=== PATIENT | male | born 1940 | race Caucasian/White ===

== ENCOUNTER 2017-09-01 22:57 | Emergency (ER) | payer MEDICARE, OTHER, MEDICAID ==
[~2017-09-01] VITALS: Ht 177.8 cm; Wt 101.0 kg
[~2017-09-01 22:57] MED LIST: ASPI-611 PO; CARV3.12 PO; CARV3.122 PO; CHOL10002 PO; FISH1CAP15 PO; FURO40TA4 PO; IBUP-1986 PO; MULT-1141 PO; NITR0.4T48 SL; PRAV20TA4 PO; VALS40TA2 PO
[2017-09-01] MEDS ORDERED: POTA10TA19 PO (23:10)
[2017-09-02] MEDS ORDERED: BENZ-16 PO (00:22)
[2017-09-02] MEDS: benzonatate 100mg capsule PO ONE (00:30)
[2017-09-02 00:36] VITALS: BP 145/73
== END 2017-09-02 00:42 | disposition home or self-care (01) ==
LOC: ER 22:58
DX: J20.9 Acute bronchitis, unspecified (principal); I49.9 Cardiac arrhythmia, unspecified; I11.0 Hypertensive heart disease with heart failure; I50.9 Heart failure, unspecified; I25.2 Old myocardial infarction; K21.9 Gastro-esophageal reflux disease without esophagitis; Z88.8 Allergy status to other drugs, medicaments and biological substances; Z79.82 Long term (current) use of aspirin; Z79.899 Other long term (current) drug therapy
CPT/HCPCS: 71046; 99284

== ENCOUNTER 2017-09-07 09:32 | Emergency (ER) | payer OTHER, MEDICARE, MEDICAID ==
[~2017-09-07] VITALS: Ht 177.8 cm; Wt 91.0 kg
[~2017-09-07 09:32] MED LIST changes: -ASPI-611 PO; +BENZ-16 PO; -CARV3.12 PO; +POTA10TA19 PO
[2017-09-07 10:03] LABS: BASOPHILS % (AUTO) 0.3 % (0-1); EOSINOPHILS # (AUTO) 0.2 X10'3 (0-0.9); EOSINOPHILS % (AUTO) 1.9 % (0-6); HEMATOCRIT 35.3 % (42.0-52.0); HEMOGLOBIN 12.3 g/dl (14.0-17.9); LYMPHOCYTES # (AUTO) 1.5 X10'3 (1.1-4.8); LYMPHOCYTES % (AUTO) 15.2 % (21-51); MEAN CORPUSCULAR HEMOGLOBIN 30.5 PG (27.0-31.0); MEAN CORPUSCULAR HGB CONC 34.7 % (33.0-36.5); MEAN CORPUSCULAR VOLUME 87.8 FL (78-98); MEAN PLATELET VOLUME 6.8 FL (7.4-10.4); MONOCYTES % (AUTO) 10.7 % (2-12); NEUTROPHILS % (AUTO) 71.9 % (42-75); PLATELET COUNT 210 X10'3 (140-440); RED BLOOD COUNT 4.02 X10'6 (4.70-6.10); RED CELL DISTRIBUTION WIDTH 13.8 % (11.5-14.5); WHITE BLOOD COUNT 9.7 X10'3 (4.5-11.0)
[2017-09-07 10:14] LABS: PARTIAL THROMBOPLASTIN TIME 30 SECONDS (22-32)
[2017-09-07 10:19] LABS: ALANINE AMINOTRANSFERASE 54 U/L (12-78); ALBUMIN 2.8 G/DL (3.4-5.0); ALBUMIN/GLOBULIN RATIO 0.6 (1.1-1.5); ALKALINE PHOSPHATASE 49 IU/L (46-116); ANION GAP 8 (8-16); ASPARTATE AMINO TRANSFERASE 50 U/L (10-37); BILIRUBIN,TOTAL 0.5 MG/DL (0.1-1.0); BLOOD UREA NITROGEN 11 MG/DL (7-18); BUN/CREATININE RATIO 10.5 (5.4-32.0); CALCIUM 8.5 MG/DL (8.5-10.1); CHLORIDE 101 MMOL/L (99-107); CREATININE 1.05 MG/DL (0.60-1.10); GLUCOSE 93 MG/DL (70-104); POTASSIUM 3.9 MMOL/L (3.5-5.1); SODIUM 137 MMOL/L (135-145); TOTAL CARBON DIOXIDE 28.3 MMOL/L (24-32); TOTAL PROTEIN 7.5 G/DL (6.4-8.2); eGFR 69 ML/MIN
[2017-09-07] MEDS: ipratropium/albuterol 3ml nebule NEB ONE (10:50)
[2017-09-07] MEDS ORDERED: AMOX-580 PO (10:56)
[2017-09-07] MEDS ORDERED: AZIT250T PO (10:56)
[2017-09-07] MEDS ORDERED: FLUT1BLS3 INH (10:57)
[2017-09-07] MEDS: CefTRIAXone 1000mg IM Kit (w/lidocaine diluent) IM ONE (11:23)
[2017-09-07] MEDS: methylPREDNISolone sod succ 125mg/2ml vial IM ONE (11:23)
[2017-09-07 12:24] VITALS: BP 110/70
== END 2017-09-07 12:25 | disposition home or self-care (01) ==
LOC: ER 09:32
DX: J18.1 Lobar pneumonia, unspecified organism (principal); I11.0 Hypertensive heart disease with heart failure; I50.9 Heart failure, unspecified; I25.2 Old myocardial infarction; K21.9 Gastro-esophageal reflux disease without esophagitis; Z79.82 Long term (current) use of aspirin; Z79.899 Other long term (current) drug therapy; Z88.8 Allergy status to other drugs, medicaments and biological substances
CPT/HCPCS: 36415; 71045; 80053; 84484; 85025; 85610; 85730; 93005; 94640; 94760; 96372; 99285; J0696; J2930

== ENCOUNTER 2017-10-05 07:29 | Inpatient (IN) | payer MEDICARE, MEDICAID, OTHER ==
[~2017-10-05] VITALS: Ht 177.8 cm; Wt 97.0 kg
[~2017-10-05 07:29] MED LIST changes: +AMOX-580 PO; +AZIT250T PO; -BENZ-16 PO; +FLUT1BLS3 INH
[2017-10-05] MEDS ORDERED: normal saline 1000ML IV soln IVB ONE (08:00)
[2017-10-05 08:17] LABS: BASOPHILS % (AUTO) 0.4 % (0-1); EOSINOPHILS # (AUTO) 0.4 X10'3 (0-0.9); EOSINOPHILS % (AUTO) 5.2 % (0-6); HEMATOCRIT 36.7 % (42.0-52.0); HEMOGLOBIN 12.6 g/dl (14.0-17.9); LYMPHOCYTES # (AUTO) 2.2 X10'3 (1.1-4.8); LYMPHOCYTES % (AUTO) 29.8 % (21-51); MEAN CORPUSCULAR HEMOGLOBIN 30.6 PG (27.0-31.0); MEAN CORPUSCULAR HGB CONC 34.3 % (33.0-36.5); MEAN PLATELET VOLUME 7.5 FL (7.4-10.4); MONOCYTES # (AUTO) 0.6 X10'3 (0-0.9); MONOCYTES % (AUTO) 7.7 % (2-12); NEUTROPHILS # (AUTO) 4.1 X10'3 (1.8-7.7); NEUTROPHILS % (AUTO) 56.9 % (42-75); PLATELET COUNT 188 X10'3 (140-440); RED BLOOD COUNT 4.13 X10'6 (4.70-6.10); RED CELL DISTRIBUTION WIDTH 14.4 % (11.5-14.5); WHITE BLOOD COUNT 7.2 X10'3 (4.5-11.0)
[2017-10-05 08:25] LABS: PARTIAL THROMBOPLASTIN TIME 26 SECONDS (22-32); PROTHROMBIN TIME 10.4 SECONDS (9.0-12.0)
[2017-10-05 08:30] LABS: ALANINE AMINOTRANSFERASE 25 U/L (12-78); ALBUMIN 3.1 G/DL (3.4-5.0); ALBUMIN/GLOBULIN RATIO 0.9 (1.1-1.5); ALKALINE PHOSPHATASE 41 IU/L (46-116); ANION GAP 8 (8-16); ASPARTATE AMINO TRANSFERASE 16 U/L (10-37); BILIRUBIN,TOTAL 0.5 MG/DL (0.1-1.0); BLOOD UREA NITROGEN 8 MG/DL (7-18); BUN/CREATININE RATIO 7.5 (5.4-32.0); CALCIUM 8.9 MG/DL (8.5-10.1); CHLORIDE 108 MMOL/L (99-107); CREATININE 1.06 MG/DL (0.60-1.10); GLUCOSE 92 MG/DL (70-104); POTASSIUM 4.2 MMOL/L (3.5-5.1); SODIUM 143 MMOL/L (135-145); TOTAL CARBON DIOXIDE 27.4 MMOL/L (24-32); TOTAL PROTEIN 6.4 G/DL (6.4-8.2); eGFR 68 ML/MIN
[2017-10-05] MEDS ORDERED: MECL-111 PO (10:25)
[2017-10-05] MEDS ORDERED: meclizine 12.5mg tablet PO ONE (10:25)
[2017-10-05] MEDS ORDERED: NITR0.4T51 SL (13:09)
[2017-10-05] MEDS ORDERED: FURO40TA4 PO (13:09)
[2017-10-05] MEDS ORDERED: magnesium hydroxide 30ml (MOM) UD suspension PO PRN (13:35)
[2017-10-05] MEDS ORDERED: ondansetron/PF 4mg/2ml inj IV PRN (13:35)
[2017-10-05] MEDS ORDERED: acetaminophen 325mg tablet PO PRN (13:35)
[2017-10-05] MEDS ORDERED: mag hydrox/Alum hydrox/simeth 30ml oral suspension PO PRN (13:35)
[2017-10-05 17:27] VITALS: BP 126/70
[2017-10-05 19:00] VITALS: BP 135/78
[2017-10-05] MEDS: furosemide 40mg tablet PO SCH (21:14)
[2017-10-05] MEDS: atorvastatin 10mg tablet PO SCH (21:14)
[2017-10-05] MEDS: carVEDilol 3.125mg tablet PO SCH (21:14)
[2017-10-05 23:00] VITALS: BP 102/55
[2017-10-06] VITALS (10 sets, daily range): BP systolic 89–113; BP diastolic 45–64
[2017-10-06] MEDS: vitamin D (cholecalciferol) 1,000 unit tablet PO SCH (07:43)
[2017-10-06] MEDS: enoxaparin 40mg/0.4ml syringe SUBCUT SCH (07:43)
[2017-10-06] MEDS: furosemide 40mg tablet PO SCH ×2 (07:43→20:08)
[2017-10-06] MEDS ORDERED: non-formulary drug (Fish Oil/Dha/Epa (Fish Oil 1,200 Mg Fish Oil) 1 EACH) PO SCH (08:00)
[2017-10-06] MEDS: carVEDilol 3.125mg tablet PO SCH ×3 (08:00→20:08)
[2017-10-06] MEDS ORDERED: ASPI-1264 PO (08:16)
[2017-10-06] MEDS: atorvastatin 10mg tablet PO SCH (20:08)
[2017-10-07] VITALS (23 sets, daily range): BP systolic 93–131; BP diastolic 47–84
[2017-10-07 05:50] LABS: BASOPHILS % (AUTO) 0.6 % (0-1); EOSINOPHILS # (AUTO) 0.3 X10'3 (0-0.9); EOSINOPHILS % (AUTO) 5.4 % (0-6); HEMATOCRIT 36.1 % (42.0-52.0); HEMOGLOBIN 12.2 g/dl (14.0-17.9); LYMPHOCYTES % (AUTO) 31.4 % (21-51); MEAN CORPUSCULAR HEMOGLOBIN 29.9 PG (27.0-31.0); MEAN CORPUSCULAR HGB CONC 33.8 % (33.0-36.5); MEAN CORPUSCULAR VOLUME 88.4 FL (78-98); MEAN PLATELET VOLUME 7.6 FL (7.4-10.4); MONOCYTES # (AUTO) 0.6 X10'3 (0-0.9); MONOCYTES % (AUTO) 9.9 % (2-12); NEUTROPHILS # (AUTO) 3.4 X10'3 (1.8-7.7); NEUTROPHILS % (AUTO) 52.7 % (42-75); PLATELET COUNT 155 X10'3 (140-440); RED BLOOD COUNT 4.08 X10'6 (4.70-6.10); RED CELL DISTRIBUTION WIDTH 14.3 % (11.5-14.5); WHITE BLOOD COUNT 6.4 X10'3 (4.5-11.0)
[2017-10-07 06:33] LABS: ALBUMIN 2.9 G/DL (3.4-5.0); ANION GAP 8 (8-16); BLOOD UREA NITROGEN 10 MG/DL (7-18); BUN/CREATININE RATIO 9.3 (5.4-32.0); CALCIUM 8.4 MG/DL (8.5-10.1); CHLORIDE 106 MMOL/L (99-107); CREATININE 1.08 MG/DL (0.60-1.10); GLUCOSE 93 MG/DL (70-104); POTASSIUM 3.6 MMOL/L (3.5-5.1); SODIUM 142 MMOL/L (135-145); eGFR 66 ML/MIN
[2017-10-07] MEDS: enoxaparin 40mg/0.4ml syringe SUBCUT SCH (08:00)
[2017-10-07] MEDS: vitamin D (cholecalciferol) 1,000 unit tablet PO SCH (10:49)
[2017-10-07] MEDS: furosemide 40mg tablet PO SCH (10:50)
[2017-10-07] MEDS: carVEDilol 3.125mg tablet PO SCH (10:50)
== END 2017-10-07 14:30 | disposition home or self-care (01) | DRG 312 ==
LOC: ER 07:30 → PCU 3S 19:14 → CMPBEDREQ 19:51
PROVIDERS: ADMIT Internal Medicine; ATTEND Internal Medicine
DX: R55 Syncope and collapse (principal); I50.22 Chronic systolic (congestive) heart failure; D64.9 Anemia, unspecified; I11.0 Hypertensive heart disease with heart failure; I47.1 Supraventricular tachycardia; I44.7 Left bundle-branch block, unspecified; M19.90 Unspecified osteoarthritis, unspecified site; F41.9 Anxiety disorder, unspecified; R42 Dizziness and giddiness; E66.9 Obesity, unspecified; E78.5 Hyperlipidemia, unspecified; I25.10 Atherosclerotic heart disease of native coronary artery without angina pectoris; K21.9 Gastro-esophageal reflux disease without esophagitis; I25.2 Old myocardial infarction; Z88.8 Allergy status to other drugs, medicaments and biological substances; Z79.899 Other long term (current) drug therapy; Z81.8 Family history of other mental and behavioral disorders; Z68.30 Body mass index [BMI] 30.0-30.9, adult
CPT/HCPCS: 36415; 70551; 71045; 80048; 80053; 83880; 84443; 84484; 85025; 85610; 85730; 87070; 93005; 93306; 93660; 93880; J1650; J7030; J8597

== ENCOUNTER 2017-11-01 22:49 | Emergency (ER) | payer MEDICARE, MEDICAID, OTHER ==
[~2017-11-01] VITALS: Ht 177.8 cm; Wt 97.0 kg
[~2017-11-01 22:49] MED LIST changes: -AMOX-580 PO; +ASPI-1264 PO; -AZIT250T PO; -FLUT1BLS3 INH; -IBUP-1986 PO; -NITR0.4T48 SL; +NITR0.4T51 SL
[2017-11-02] MEDS ORDERED: meclizine 12.5mg tablet PO ONE (00:50)
[2017-11-02] MEDS ORDERED: normal saline 1000ml 1,000 ML IV ONE (00:50)
[2017-11-02 01:01] VITALS: BP 135/75
[2017-11-02] MEDS ORDERED: MECL12.584 PO (02:11)
[2017-11-06] MEDS ORDERED: FURO40TA4 PO (11:39)
[2017-11-06] MEDS ORDERED: POTA20TA10 PO (11:39)
[2017-11-06] MEDS ORDERED: VALS40TA2 PO (11:39)
== END 2017-11-02 01:56 | disposition home or self-care (01) ==
LOC: ER 22:50
DX: H81.10 Benign paroxysmal vertigo, unspecified ear (principal); I11.0 Hypertensive heart disease with heart failure; I50.9 Heart failure, unspecified; I49.9 Cardiac arrhythmia, unspecified; I25.10 Atherosclerotic heart disease of native coronary artery without angina pectoris; E78.00 Pure hypercholesterolemia, unspecified; I25.2 Old myocardial infarction; K21.9 Gastro-esophageal reflux disease without esophagitis; Z98.61 Coronary angioplasty status; Z98.890 Other specified postprocedural states; Z88.8 Allergy status to other drugs, medicaments and biological substances; Z79.82 Long term (current) use of aspirin; Z79.899 Other long term (current) drug therapy
CPT/HCPCS: 93005; 96360; 99284; J7030; J8597

== ENCOUNTER 2017-12-16 02:13 | Emergency (ER) | payer MEDICARE, MEDICAID, OTHER ==
[~2017-12-16] VITALS: Ht 188 cm; Wt 100.0 kg
[~2017-12-16 02:13] MED LIST changes: +MECL12.584 PO; -POTA10TA19 PO; +POTA20TA10 PO
[2017-12-16 02:53] LABS: BASOPHILS % (AUTO) 0.3 % (0-1); EOSINOPHILS # (AUTO) 0.3 X10'3 (0-0.9); HEMATOCRIT 37.8 % (42.0-52.0); HEMOGLOBIN 13.1 g/dl (14.0-17.9); LYMPHOCYTES # (AUTO) 2.4 X10'3 (1.1-4.8); LYMPHOCYTES % (AUTO) 27.4 % (21-51); MEAN CORPUSCULAR HEMOGLOBIN 30.7 PG (27.0-31.0); MEAN CORPUSCULAR HGB CONC 34.7 % (33.0-36.5); MEAN CORPUSCULAR VOLUME 88.4 FL (78-98); MEAN PLATELET VOLUME 7.4 FL (7.4-10.4); MONOCYTES # (AUTO) 0.6 X10'3 (0-0.9); NEUTROPHILS # (AUTO) 5.3 X10'3 (1.8-7.7); NEUTROPHILS % (AUTO) 61.3 % (42-75); PLATELET COUNT 197 X10'3 (140-440); RED BLOOD COUNT 4.27 X10'6 (4.70-6.10); RED CELL DISTRIBUTION WIDTH 13.5 % (11.5-14.5); WHITE BLOOD COUNT 8.6 X10'3 (4.5-11.0)
[2017-12-16 03:08] LABS: ALANINE AMINOTRANSFERASE 18 U/L (12-78); ALBUMIN 3.3 G/DL (3.4-5.0); ALBUMIN/GLOBULIN RATIO 0.9 (1.1-1.5); ALKALINE PHOSPHATASE 44 IU/L (46-116); ANION GAP 7 (8-16); ASPARTATE AMINO TRANSFERASE 15 U/L (10-37); BILIRUBIN,TOTAL 0.5 MG/DL (0.1-1.0); BLOOD UREA NITROGEN 13 MG/DL (7-18); CALCIUM 8.6 MG/DL (8.5-10.1); CHLORIDE 106 MMOL/L (99-107); GLUCOSE 96 MG/DL (70-104); POTASSIUM 3.6 MMOL/L (3.5-5.1); SODIUM 141 MMOL/L (135-145); TOTAL CARBON DIOXIDE 27.7 MMOL/L (24-32); TOTAL PROTEIN 6.8 G/DL (6.4-8.2); eGFR 54 ML/MIN
[2017-12-16 03:15] LABS: MAGNESIUM 1.8 MG/DL (1.5-2.4)
[2017-12-16] MEDS ORDERED: LORazepam 2 mg/ml vial IV ONE (03:45)
[2017-12-16 03:55] VITALS: BP 151/59
== END 2017-12-16 04:06 | disposition home or self-care (01) ==
LOC: ER 02:13
DX: F41.9 Anxiety disorder, unspecified (principal); I25.10 Atherosclerotic heart disease of native coronary artery without angina pectoris; I50.9 Heart failure, unspecified; I11.0 Hypertensive heart disease with heart failure; E78.00 Pure hypercholesterolemia, unspecified; I25.2 Old myocardial infarction; K21.9 Gastro-esophageal reflux disease without esophagitis; Z98.61 Coronary angioplasty status; Z98.890 Other specified postprocedural states; Z79.82 Long term (current) use of aspirin; Z79.899 Other long term (current) drug therapy; Z88.8 Allergy status to other drugs, medicaments and biological substances
CPT/HCPCS: 36415; 71045; 80053; 83735; 83880; 84484; 85025; 93005; 96374; 99285; J2060

== ENCOUNTER 2017-12-23 09:26 | Emergency (ER) | payer MEDICARE, MEDICAID, OTHER ==
[~2017-12-23] VITALS: Ht 177.8 cm; Wt 94.0 kg
[2017-12-23 10:15] LABS: BASOPHILS % (AUTO) 0.6 % (0-1); EOSINOPHILS # (AUTO) 0.3 X10'3 (0-0.9); EOSINOPHILS % (AUTO) 3.9 % (0-6); HEMATOCRIT 38.9 % (42.0-52.0); HEMOGLOBIN 13.6 g/dl (14.0-17.9); LYMPHOCYTES # (AUTO) 1.8 X10'3 (1.1-4.8); LYMPHOCYTES % (AUTO) 22.9 % (21-51); MEAN CORPUSCULAR HEMOGLOBIN 30.5 PG (27.0-31.0); MEAN CORPUSCULAR HGB CONC 34.9 % (33.0-36.5); MEAN CORPUSCULAR VOLUME 87.5 FL (78-98); MONOCYTES # (AUTO) 0.5 X10'3 (0-0.9); MONOCYTES % (AUTO) 6.6 % (2-12); NEUTROPHILS # (AUTO) 5.3 X10'3 (1.8-7.7); PLATELET COUNT 208 X10'3 (140-440); RED BLOOD COUNT 4.44 X10'6 (4.70-6.10); RED CELL DISTRIBUTION WIDTH 13.8 % (11.5-14.5)
[2017-12-23 10:32] LABS: ALANINE AMINOTRANSFERASE 16 U/L (12-78); ALBUMIN 3.2 G/DL (3.4-5.0); ALBUMIN/GLOBULIN RATIO 0.9 (1.1-1.5); ALKALINE PHOSPHATASE 49 IU/L (46-116); ANION GAP 7 (8-16); ASPARTATE AMINO TRANSFERASE 15 U/L (10-37); BILIRUBIN,TOTAL 0.5 MG/DL (0.1-1.0); BLOOD UREA NITROGEN 12 MG/DL (7-18); BUN/CREATININE RATIO 11.7 (5.4-32.0); CALCIUM 8.2 MG/DL (8.5-10.1); CHLORIDE 106 MMOL/L (99-107); CREATININE 1.03 MG/DL (0.60-1.10); GLUCOSE 101 MG/DL (70-104); POTASSIUM 3.9 MMOL/L (3.5-5.1); SODIUM 140 MMOL/L (135-145); TOTAL CARBON DIOXIDE 26.9 MMOL/L (24-32); TOTAL PROTEIN 6.8 G/DL (6.4-8.2); eGFR 70 ML/MIN
[2017-12-23 10:38] LABS: PARTIAL THROMBOPLASTIN TIME 25 SECONDS (22-32); PROTHROMBIN TIME 10.1 SECONDS (9.0-12.0)
[2017-12-23] MEDS ORDERED: acetaminophen 325mg tablet PO ONE (12:45)
[2017-12-23 13:05] VITALS: BP 129/89
== END 2017-12-23 13:06 | disposition home or self-care (01) ==
LOC: ER 09:27
DX: R53.1 Weakness (principal); I25.10 Atherosclerotic heart disease of native coronary artery without angina pectoris; I50.9 Heart failure, unspecified; E78.00 Pure hypercholesterolemia, unspecified; I11.0 Hypertensive heart disease with heart failure; I25.2 Old myocardial infarction; K21.9 Gastro-esophageal reflux disease without esophagitis; Z98.61 Coronary angioplasty status; Z98.890 Other specified postprocedural states; Z88.8 Allergy status to other drugs, medicaments and biological substances; Z79.82 Long term (current) use of aspirin; Z79.899 Other long term (current) drug therapy
CPT/HCPCS: 36415; 71045; 80053; 84484; 85025; 85610; 85730; 93005; 99285

== ENCOUNTER 2018-01-16 01:14 | Emergency (ER) | payer MEDICARE, MEDICAID, OTHER ==
[~2018-01-16] VITALS: Ht 177.8 cm; Wt 96.4 kg
[2018-01-16 02:43] LABS: BASOPHILS % (AUTO) 0.4 % (0-1); EOSINOPHILS # (AUTO) 0.4 X10'3 (0-0.9); HEMATOCRIT 39.7 % (42.0-52.0); HEMOGLOBIN 13.4 g/dl (14.0-17.9); LYMPHOCYTES # (AUTO) 1.9 X10'3 (1.1-4.8); MEAN CORPUSCULAR HGB CONC 33.7 % (33.0-36.5); MEAN PLATELET VOLUME 6.9 FL (7.4-10.4); MONOCYTES # (AUTO) 0.6 X10'3 (0-0.9); MONOCYTES % (AUTO) 6.7 % (2-12); NEUTROPHILS # (AUTO) 6.2 X10'3 (1.8-7.7); NEUTROPHILS % (AUTO) 67.9 % (42-75); PLATELET COUNT 206 X10'3 (140-440); RED BLOOD COUNT 4.46 X10'6 (4.70-6.10); RED CELL DISTRIBUTION WIDTH 13.3 % (11.5-14.5); WHITE BLOOD COUNT 9.1 X10'3 (4.5-11.0)
[2018-01-16 02:57] LABS: ALANINE AMINOTRANSFERASE 22 U/L (12-78); ALBUMIN 3.4 G/DL (3.4-5.0); ALBUMIN/GLOBULIN RATIO 0.8 (1.1-1.5); ALKALINE PHOSPHATASE 43 IU/L (46-116); ANION GAP 5 (8-16); ASPARTATE AMINO TRANSFERASE 17 U/L (10-37); BILIRUBIN,TOTAL 0.4 MG/DL (0.1-1.0); BLOOD UREA NITROGEN 12 MG/DL (7-18); BUN/CREATININE RATIO 10.9 (5.4-32.0); CALCIUM 8.7 MG/DL (8.5-10.1); CHLORIDE 105 MMOL/L (99-107); GLUCOSE 109 MG/DL (70-104); POTASSIUM 3.7 MMOL/L (3.5-5.1); SODIUM 139 MMOL/L (135-145); TOTAL CARBON DIOXIDE 29.3 MMOL/L (24-32); TOTAL PROTEIN 7.6 G/DL (6.4-8.2); eGFR 65 ML/MIN
[2018-01-16 03:41] VITALS: BP 138/72
== END 2018-01-16 03:27 | disposition home or self-care (01) ==
LOC: ER 01:15
DX: R42 Dizziness and giddiness (principal); I25.10 Atherosclerotic heart disease of native coronary artery without angina pectoris; I50.9 Heart failure, unspecified; E78.00 Pure hypercholesterolemia, unspecified; I25.2 Old myocardial infarction; I11.0 Hypertensive heart disease with heart failure; K21.9 Gastro-esophageal reflux disease without esophagitis; Z98.890 Other specified postprocedural states; Z98.61 Coronary angioplasty status; Z88.8 Allergy status to other drugs, medicaments and biological substances; Z79.82 Long term (current) use of aspirin; Z79.899 Other long term (current) drug therapy
CPT/HCPCS: 36415; 80053; 82948; 85025; 93005; 99285

== ENCOUNTER 2018-03-10 09:48 | Emergency (ER) | payer MEDICARE, MEDICAID, OTHER ==
[~2018-03-10] VITALS: Ht 177.8 cm; Wt 98.0 kg
[2018-03-10 10:16] LABS: BASOPHILS % (AUTO) 0.3 % (0-1); EOSINOPHILS # (AUTO) 0.3 X10'3 (0-0.9); EOSINOPHILS % (AUTO) 3.4 % (0-6); HEMATOCRIT 39.7 % (42.0-52.0); HEMOGLOBIN 13.7 g/dl (14.0-17.9); LYMPHOCYTES # (AUTO) 2.1 X10'3 (1.1-4.8); LYMPHOCYTES % (AUTO) 24.4 % (21-51); MEAN CORPUSCULAR HEMOGLOBIN 30.2 PG (27.0-31.0); MEAN CORPUSCULAR HGB CONC 34.4 % (33.0-36.5); MEAN CORPUSCULAR VOLUME 87.7 FL (78-98); MEAN PLATELET VOLUME 7.8 FL (7.4-10.4); MONOCYTES # (AUTO) 0.6 X10'3 (0-0.9); MONOCYTES % (AUTO) 6.9 % (2-12); NEUTROPHILS # (AUTO) 5.7 X10'3 (1.8-7.7); PLATELET COUNT 200 X10'3 (140-440); RED BLOOD COUNT 4.53 X10'6 (4.70-6.10); RED CELL DISTRIBUTION WIDTH 13.6 % (11.5-14.5); WHITE BLOOD COUNT 8.7 X10'3 (4.5-11.0)
[2018-03-10 10:27] LABS: PARTIAL THROMBOPLASTIN TIME 26 SECONDS (22-32)
[2018-03-10 10:31] LABS: ALANINE AMINOTRANSFERASE 29 U/L (12-78); ALBUMIN 3.4 G/DL (3.4-5.0); ALBUMIN/GLOBULIN RATIO 0.9 (1.1-1.5); ALKALINE PHOSPHATASE 47 IU/L (46-116); ANION GAP 6 (8-16); BILIRUBIN,TOTAL 0.6 MG/DL (0.1-1.0); BLOOD UREA NITROGEN 14 MG/DL (7-18); BUN/CREATININE RATIO 13.7 (5.4-32.0); CALCIUM 8.5 MG/DL (8.5-10.1); CHLORIDE 103 MMOL/L (99-107); CREATININE 1.02 MG/DL (0.60-1.10); GLUCOSE 93 MG/DL (70-104); SODIUM 138 MMOL/L (135-145); TOTAL CARBON DIOXIDE 28.6 MMOL/L (24-32); TOTAL PROTEIN 7.1 G/DL (6.4-8.2); eGFR 71 ML/MIN
[2018-03-10 10:35] LABS: ASPARTATE AMINO TRANSFERASE 31 U/L (10-37); POTASSIUM 4.6 MMOL/L (3.5-5.1)
[2018-03-10 10:42] LABS: CLARITY,URINE CLEAR (Clear); COLOR,URINE STRAW (Yellow); GLUCOSE, URINE NEGATIVE (Neg); KETONES,URINE NEGATIVE (Neg); LEUKOCYTE ESTERASE ,URINE NEGATIVE (Neg); NITRITES, URINE NEGATIVE (Neg); OCCULT BLOOD,URINE TRACE-INTACT (Neg); PROTEIN,URINE NEGATIVE (Neg); UROBILINOGEN,URINE 0.2 E.U/dL (0.2-1.0)
[2018-03-10 10:45] LABS: UA COLLECTION TYPE CLN CATCH MIDSTREAM
[2018-03-10 10:48] LABS: BACTERIA,URINE NONE SEEN /HPF (Neg); SQUAMOUS EPITHELIAL CELL,UR FEW /LPF (FEW); WBC,URINE NONE SEEN /HPF (0-4)
[2018-03-10 11:11] VITALS: BP 142/85
== END 2018-03-10 11:14 | disposition home or self-care (01) ==
LOC: ER 09:48
DX: R42 Dizziness and giddiness (principal); I25.10 Atherosclerotic heart disease of native coronary artery without angina pectoris; I11.0 Hypertensive heart disease with heart failure; I50.9 Heart failure, unspecified; I25.2 Old myocardial infarction; K21.9 Gastro-esophageal reflux disease without esophagitis; E78.00 Pure hypercholesterolemia, unspecified; Z98.61 Coronary angioplasty status; Z88.8 Allergy status to other drugs, medicaments and biological substances; Z79.82 Long term (current) use of aspirin; Z79.899 Other long term (current) drug therapy
CPT/HCPCS: 36415; 71045; 80053; 81001; 84484; 85025; 85610; 85730; 93005; 99285

== ENCOUNTER 2018-04-26 09:54 | Emergency (ER) | payer MEDICARE, MEDICAID, OTHER ==
[~2018-04-26] VITALS: Ht 177.8 cm; Wt 98.2 kg
[2018-04-26] MEDS ORDERED: normal saline 1000ML IV soln IVB ONE (11:00)
[2018-04-26] MEDS ORDERED: ondansetron/PF 4mg/2ml inj IV ONE (11:00)
[2018-04-26 11:29] LABS: BASOPHILS % (AUTO) 0.5 % (0-1); EOSINOPHILS # (AUTO) 0.2 X10'3 (0-0.9); EOSINOPHILS % (AUTO) 1.8 % (0-6); HEMATOCRIT 41.9 % (42.0-52.0); HEMOGLOBIN 14.1 g/dl (14.0-17.9); LYMPHOCYTES # (AUTO) 2.1 X10'3 (1.1-4.8); LYMPHOCYTES % (AUTO) 23.3 % (21-51); MEAN CORPUSCULAR HEMOGLOBIN 29.8 PG (27.0-31.0); MEAN CORPUSCULAR HGB CONC 33.5 % (33.0-36.5); MEAN CORPUSCULAR VOLUME 88.8 FL (78-98); MEAN PLATELET VOLUME 7.8 FL (7.4-10.4); MONOCYTES # (AUTO) 0.6 X10'3 (0-0.9); NEUTROPHILS % (AUTO) 67.4 % (42-75); PLATELET COUNT 201 X10'3 (140-440); RED BLOOD COUNT 4.72 X10'6 (4.70-6.10); RED CELL DISTRIBUTION WIDTH 14.2 % (11.5-14.5); WHITE BLOOD COUNT 8.8 X10'3 (4.5-11.0)
[2018-04-26 11:44] LABS: ALANINE AMINOTRANSFERASE 30 U/L (12-78); ALBUMIN 3.5 G/DL (3.4-5.0); ALBUMIN/GLOBULIN RATIO 0.9 (1.1-1.5); ALKALINE PHOSPHATASE 52 IU/L (46-116); ANION GAP 8 (8-16); ASPARTATE AMINO TRANSFERASE 24 U/L (10-37); BILIRUBIN,TOTAL 0.6 MG/DL (0.1-1.0); BLOOD UREA NITROGEN 15 MG/DL (7-18); BUN/CREATININE RATIO 13.6 (5.4-32.0); CALCIUM 8.4 MG/DL (8.5-10.1); CHLORIDE 105 MMOL/L (99-107); GLUCOSE 88 MG/DL (70-104); POTASSIUM 3.9 MMOL/L (3.5-5.1); SODIUM 141 MMOL/L (135-145); TOTAL CARBON DIOXIDE 28.1 MMOL/L (24-32); TOTAL PROTEIN 7.2 G/DL (6.4-8.2); eGFR 65 ML/MIN
[2018-04-26 11:47] LABS: TROPONIN I < 0.04 NG/ML (0.0-0.05)
[2018-04-26] MEDS ORDERED: ONDA4TAB9 SL (11:53)
[2018-04-26 12:26] VITALS: BP 132/86
== END 2018-04-26 12:27 | disposition home or self-care (01) ==
LOC: ER 09:55
DX: B34.9 Viral infection, unspecified (principal); I25.10 Atherosclerotic heart disease of native coronary artery without angina pectoris; I11.0 Hypertensive heart disease with heart failure; I50.9 Heart failure, unspecified; E78.00 Pure hypercholesterolemia, unspecified; I25.2 Old myocardial infarction; K21.9 Gastro-esophageal reflux disease without esophagitis; Z95.1 Presence of aortocoronary bypass graft; Z88.8 Allergy status to other drugs, medicaments and biological substances; Z79.82 Long term (current) use of aspirin
CPT/HCPCS: 36415; 80053; 84484; 85025; 93005; 96374; 99285; J2405

== ENCOUNTER 2018-06-06 15:35 | Inpatient (IN) | payer MEDICARE, MEDICAID, OTHER ==
[~2018-06-06] VITALS: Ht 177.8 cm; Wt 102.0 kg
[2018-06-06] MEDS ORDERED: normal saline 1000ML IV soln IVB ONE (15:40)
[2018-06-06] MEDS ORDERED: LORazepam 2 mg/ml vial IV ONE (15:40)
[2018-06-06] MEDS ORDERED: furosemide 10 MG/1 ML 10ml inj IV ONE (15:50)
--- NOTE | 2018-06-06 16:10 | NUR ---
PT TRIPODING AND SATS NOW 87% ON 4L NC. RECEIVED VO TO HOLD IV BOLUS, MECLIZINE AND HAVE PT PLACED ON BI-PAP
[2018-06-06] MEDS: meclizine 12.5mg tablet PO ONE ×2 (16:12→16:39)
[2018-06-06] MEDS ORDERED: furosemide 20 MG/2 ML vial IV ONE (16:15)
[2018-06-06 16:16] LABS: BASOPHILS % (AUTO) 0.4 % (0-1); EOSINOPHILS # (AUTO) 0.3 X10'3 (0-0.9); EOSINOPHILS % (AUTO) 3.3 % (0-6); HEMATOCRIT 47.5 % (42.0-52.0); HEMOGLOBIN 15.8 g/dl (14.0-17.9); LYMPHOCYTES # (AUTO) 2.6 X10'3 (1.1-4.8); MEAN CORPUSCULAR HEMOGLOBIN 29.7 PG (27.0-31.0); MEAN CORPUSCULAR HGB CONC 33.3 % (33.0-36.5); MEAN CORPUSCULAR VOLUME 89.3 FL (78-98); MEAN PLATELET VOLUME 7.9 FL (7.4-10.4); MONOCYTES # (AUTO) 0.6 X10'3 (0-0.9); MONOCYTES % (AUTO) 6.5 % (2-12); NEUTROPHILS # (AUTO) 6.2 X10'3 (1.8-7.7); NEUTROPHILS % (AUTO) 62.8 % (42-75); PLATELET COUNT 225 X10'3 (140-440); RED BLOOD COUNT 5.31 X10'6 (4.70-6.10); RED CELL DISTRIBUTION WIDTH 13.8 % (11.5-14.5); WHITE BLOOD COUNT 9.8 X10'3 (4.5-11.0)
[2018-06-06 16:28] LABS: ALANINE AMINOTRANSFERASE 29 U/L (12-78); ALBUMIN 3.7 G/DL (3.4-5.0); ALBUMIN/GLOBULIN RATIO 0.9 (1.1-1.5); ALKALINE PHOSPHATASE 64 IU/L (46-116); ANION GAP 12 (8-16); ASPARTATE AMINO TRANSFERASE 21 U/L (10-37); BILIRUBIN,TOTAL 0.4 MG/DL (0.1-1.0); BLOOD UREA NITROGEN 14 MG/DL (7-18); BUN/CREATININE RATIO 14.1 (5.4-32.0); CALCIUM 8.5 MG/DL (8.5-10.1); CHLORIDE 103 MMOL/L (99-107); CREATININE 0.99 MG/DL (0.60-1.10); GLUCOSE 98 MG/DL (70-104); POTASSIUM 3.7 MMOL/L (3.5-5.1); SODIUM 139 MMOL/L (135-145); TOTAL CARBON DIOXIDE 24.2 MMOL/L (24-32); TOTAL PROTEIN 7.9 G/DL (6.4-8.2); eGFR 73 ML/MIN
--- NOTE | 2018-06-06 16:30 | NUR ---
Pt assisted up to BSC and had a very large BM. Pt now being assisted back on [facility] and RT awaiting to place pt on bi-pap
[2018-06-06 16:35] LABS: MAGNESIUM 2.1 MG/DL (1.5-2.4)
--- NOTE | 2018-06-06 16:36 | NUR ---
PT WITH RT AT [facility] PLACING PT ON BI-PAP
--- NOTE | 2018-06-06 17:12 | NUR ---
PT REPORTS FEELING MUCH BETTER AND NOTED TO HAVE DECREASED CRACKLES.
--- NOTE | 2018-06-06 18:01 | NUR ---
Pt taken off bi-pap per VO Dr. Abraham to assess pt tollerance.
[2018-06-06] MEDS ORDERED: bisacodyl 10mg suppository rectal RC PRN (20:25)
[2018-06-06] MEDS ORDERED: diphenhydrAMINE 50 mg/ml inj IV PRN (20:25)
[2018-06-06] MEDS ORDERED: acetaminophen 650mg rectal suppository RC PRN (20:25)
[2018-06-06] MEDS ORDERED: morphine 2 MG/ML inj. syringe IV PRN (20:25)
[2018-06-06] MEDS ORDERED: meclizine 12.5mg tablet PO PRN (20:25)
[2018-06-06] MEDS ORDERED: metoclopramide 5 mg/ml inj IV PRN (20:25)
[2018-06-06] MEDS ORDERED: acetaminophen 325mg tablet PO PRN ×2 (20:25)
[2018-06-06] MEDS ORDERED: ondansetron/PF 4mg/2ml inj IV PRN (20:25)
[2018-06-06] MEDS ORDERED: nitroGLYCERIN 0.4mg SUBLingual tab SL PRN (20:25)
[2018-06-06] MEDS ORDERED: diphenhydrAMINE 25mg capsule PO PRN (20:25)
[2018-06-06] MEDS ORDERED: HYDROcodone/acetaminophen 10/325mg tab PO PRN (20:25)
[2018-06-06] MEDS ORDERED: mag hydrox/Alum hydrox/simeth 30ml oral suspension PO PRN (20:25)
[2018-06-06] MEDS ORDERED: magnesium hydroxide 30ml (MOM) UD suspension PO PRN (20:25)
[2018-06-06] MEDS ORDERED: HYDROmorphone inj. 0.5 MG/0.5 ML DISP.SYRIN IV PRN (20:25)
[2018-06-06 20:36] LABS: LIPASE 204 U/L (73-393)
[2018-06-06] MEDS ORDERED: temazepam 15mg capsule PO PRN (21:00)
[2018-06-06 21:08] LABS: PHOSPHORUS 3.5 MG/DL (2.3-4.5)
[2018-06-06 21:11] LABS: D-DIMER 0.92 MG/L FEU (0-0.50); PARTIAL THROMBOPLASTIN TIME 27 SECONDS (22-32); PROTHROMBIN TIME 10.6 SECONDS (9.0-12.0)
[2018-06-06] MEDS: furosemide 10 MG/1 ML 10ml inj IV SCH (21:21)
[2018-06-06] MEDS: atorvastatin 10mg tablet PO SCH (21:22)
--- NOTE | 2018-06-06 22:31 | NUR ---
Personal belongings: blue sweatshirt, sweat pants, white tshirt, undies, wallet (no davila).
[2018-06-06 23:11] LABS: CLARITY,URINE CLEAR (Clear); COLOR,URINE YELLOW (Yellow); GLUCOSE, URINE NEGATIVE (Neg); KETONES,URINE NEGATIVE (Neg); LEUKOCYTE ESTERASE ,URINE NEGATIVE (Neg); NITRITES, URINE NEGATIVE (Neg); OCCULT BLOOD,URINE TRACE-LYSED (Neg); PROTEIN,URINE NEGATIVE (Neg); UA COLLECTION TYPE URINAL; UROBILINOGEN,URINE 0.2 E.U/dL (0.2-1.0)
[2018-06-06 23:21] LABS: BACTERIA,URINE NONE SEEN /HPF (Neg); MUCUS STRANDS NONE SEEN /LPF (Neg); RBC,URINE 0-2 /HPF (0-2); SQUAMOUS EPITHELIAL CELL,UR FEW /LPF (FEW); WBC,URINE 0-4 /HPF (0-4)
--- NOTE | 2018-06-07 00:07 | NUR ---
pt placed on hospital bed
--- NOTE | 2018-06-07 07:00 | NUR ---
Patient in room ED 15. I have received report from LEDA Calhoun in ED and had the opportunity to ask questions and assume patient care.
[2018-06-07] MEDS: OMEGA-3/DHA/EPA/FISH OIL 1 EACH CAPSULE.DR PO SCH (08:00)
[2018-06-07] MEDS ORDERED: CefTRIAXone 1000mg IM Kit (w/lidocaine diluent) IM SCH (08:00)
--- NOTE | 2018-06-07 08:50 | NUR ---
Pt arrived on the floor. No complaints of pain or discomfort. Settled pt into bed, provided water, TV, MRSA swab done, applied tele box.
[2018-06-07] MEDS ORDERED: CefTRIAXone/D5W-Rocephin 1gm 50 ML IV ONE (09:50)
[2018-06-07 10:00] VITALS: BP 99/54
[2018-06-07] MEDS: furosemide 10 MG/1 ML 10ml inj IV SCH (10:05)
[2018-06-07] MEDS: aspirin 325mg tablet PO SCH (10:07)
[2018-06-07] MEDS: docusate sod 100mg capsule PO SCH ×2 (10:08→20:14)
[2018-06-07] MEDS: heparin, porcine 5000 units/ml vial SQ SCH ×2 (10:09→20:15)
[2018-06-07] MEDS: azithromycin/NS 500mg/250ml 250 ML IV SCH (10:09)
[2018-06-07 10:10] LABS: BASOPHILS % (AUTO) 0.3 % (0-1); EOSINOPHILS # (AUTO) 0.3 X10'3 (0-0.9); EOSINOPHILS % (AUTO) 2.4 % (0-6); HEMATOCRIT 42.5 % (42.0-52.0); HEMOGLOBIN 14.4 g/dl (14.0-17.9); LYMPHOCYTES # (AUTO) 2.3 X10'3 (1.1-4.8); LYMPHOCYTES % (AUTO) 21.7 % (21-51); MEAN CORPUSCULAR HEMOGLOBIN 30.1 PG (27.0-31.0); MEAN CORPUSCULAR HGB CONC 33.8 % (33.0-36.5); MEAN CORPUSCULAR VOLUME 89.1 FL (78-98); MONOCYTES # (AUTO) 0.8 X10'3 (0-0.9); MONOCYTES % (AUTO) 7.7 % (2-12); NEUTROPHILS # (AUTO) 7.1 X10'3 (1.8-7.7); NEUTROPHILS % (AUTO) 67.9 % (42-75); PLATELET COUNT 198 X10'3 (140-440); RED BLOOD COUNT 4.77 X10'6 (4.70-6.10); RED CELL DISTRIBUTION WIDTH 13.9 % (11.5-14.5); WHITE BLOOD COUNT 10.4 X10'3 (4.5-11.0)
[2018-06-07 10:18] LABS: ALANINE AMINOTRANSFERASE 28 U/L (12-78); ALBUMIN 3.1 G/DL (3.4-5.0); ALBUMIN/GLOBULIN RATIO 0.9 (1.1-1.5); ALKALINE PHOSPHATASE 53 IU/L (46-116); ANION GAP 11 (8-16); ASPARTATE AMINO TRANSFERASE 17 U/L (10-37); BILIRUBIN,TOTAL 0.7 MG/DL (0.1-1.0); BLOOD UREA NITROGEN 19 MG/DL (7-18); BUN/CREATININE RATIO 15.2 (5.4-32.0); CALCIUM 8.2 MG/DL (8.5-10.1); CHLORIDE 104 MMOL/L (99-107); CREATININE 1.25 MG/DL (0.60-1.10); GLUCOSE 120 MG/DL (70-104); POTASSIUM 3.1 MMOL/L (3.5-5.1); SODIUM 141 MMOL/L (135-145); TOTAL CARBON DIOXIDE 26.4 MMOL/L (24-32); TOTAL PROTEIN 6.7 G/DL (6.4-8.2); eGFR 56 ML/MIN
[2018-06-07] MEDS: carVEDilol 3.125mg tablet PO SCH ×2 (10:21→20:14)
[2018-06-07] MEDS: CefTRIAXone/D5W-Rocephin 1gm 50 ML IV SCH (11:55)
--- NOTE | 2018-06-07 12:42 | NUR ---
PAGER ID: [phone] MESSAGE: Augustine Morales, this is Erlinda on ortho 5430, pt in room 4021B, Mr. Hogan's potassium was 3.1. Please advise. Thank you
[2018-06-07] MEDS ORDERED: potassium Cl 20 mEq SR tablet PO PRN (13:30)
[2018-06-07] MEDS ORDERED: magnesium 4gm in 100ml NS 100 ML IV PRN (13:30)
[2018-06-07] MEDS ORDERED: potassium Cl 40MEQ/NS 500ml 500 ML IV PRN ×2 (13:30)
[2018-06-07] MEDS: vitamin D (cholecalciferol) 1,000 unit tablet PO SCH (13:31)
[2018-06-07 13:44] LABS: MAGNESIUM 2.1 MG/DL (1.5-2.4)
[2018-06-07] MEDS: potassium Cl 20 mEq SR tablet PO PRN ×2 (14:48→20:14)
[2018-06-07 16:04] VITALS: BP 107/63
--- NOTE | 2018-06-07 16:04 | NUR ---
Call from tele box, nurse stated after checking the tele alarms, she observed pairs of PVCs and bigeminal PVCs. MD was in the room at this time and I advised him of the tele report
[2018-06-07] MEDS ORDERED: normal saline 1000ml 1,000 ML IV SCH (16:40)
--- NOTE | 2018-06-07 17:48 | NUR ---
PAGER ID: [phone] MESSAGE: Augustine Morales, this is Erlinda on ortho for pt in room 4021B. Can we clarify the normal saline order please? Thank you [phone]
[2018-06-07] MEDS ORDERED: normal saline 500ml IV soln 1,000 ML IV ONE (17:50)
[2018-06-07 18:00] VITALS: BP 116/69
--- NOTE | 2018-06-07 18:11 | NUR ---
Problems reprioritized. Patient report given, questions answered & plan of care reviewed with Donna Doan
[2018-06-07] MEDS ORDERED: iohexol 350MG/ML 100ml bottle IV ONE (18:31)
[2018-06-07] MEDS: atorvastatin 10mg tablet PO SCH (20:14)
[2018-06-07 22:00] VITALS: BP 115/61
[2018-06-08] MEDS: potassium Cl 20 mEq SR tablet PO PRN (01:08)
[2018-06-08 06:00] VITALS: BP 107/50
--- NOTE | 2018-06-08 06:30 | NUR ---
I have received patient report Donna Fish RN
[2018-06-08 06:35] LABS: BASOPHILS % (AUTO) 0.5 % (0-1); EOSINOPHILS # (AUTO) 0.3 X10'3 (0-0.9); EOSINOPHILS % (AUTO) 3.6 % (0-6); HEMOGLOBIN 13.4 g/dl (14.0-17.9); LYMPHOCYTES # (AUTO) 1.9 X10'3 (1.1-4.8); LYMPHOCYTES % (AUTO) 23.5 % (21-51); MEAN CORPUSCULAR HEMOGLOBIN 29.9 PG (27.0-31.0); MEAN CORPUSCULAR HGB CONC 33.5 % (33.0-36.5); MEAN CORPUSCULAR VOLUME 89.2 FL (78-98); MEAN PLATELET VOLUME 7.9 FL (7.4-10.4); MONOCYTES # (AUTO) 0.7 X10'3 (0-0.9); MONOCYTES % (AUTO) 8.6 % (2-12); NEUTROPHILS # (AUTO) 5.2 X10'3 (1.8-7.7); NEUTROPHILS % (AUTO) 63.8 % (42-75); PLATELET COUNT 177 X10'3 (140-440); RED BLOOD COUNT 4.49 X10'6 (4.70-6.10); RED CELL DISTRIBUTION WIDTH 13.9 % (11.5-14.5); WHITE BLOOD COUNT 8.1 X10'3 (4.5-11.0)
--- NOTE | 2018-06-08 06:35 | NUR ---
Report given to Mahi TOMPKINS.
[2018-06-08 06:55] LABS: ALANINE AMINOTRANSFERASE 25 U/L (12-78); ALBUMIN 2.8 G/DL (3.4-5.0); ALBUMIN/GLOBULIN RATIO 0.8 (1.1-1.5); ALKALINE PHOSPHATASE 44 IU/L (46-116); ANION GAP 7 (8-16); ASPARTATE AMINO TRANSFERASE 18 U/L (10-37); BILIRUBIN,TOTAL 0.6 MG/DL (0.1-1.0); BLOOD UREA NITROGEN 16 MG/DL (7-18); BUN/CREATININE RATIO 15.1 (5.4-32.0); CHLORIDE 108 MMOL/L (99-107); CHOL/HDL RATIO 3.6 (0.00-4.99); CHOLESTEROL 104 MG/DL (0-200); CREATININE 1.06 MG/DL (0.60-1.10); GLUCOSE 89 MG/DL (70-104); HDL CHOLESTEROL 29 MG/DL (35-60); LDL CHOLESTEROL 55 MG/DL (50-100); MAGNESIUM 2.2 MG/DL (1.5-2.4); POTASSIUM 3.9 MMOL/L (3.5-5.1); SODIUM 141 MMOL/L (135-145); TOTAL CARBON DIOXIDE 26.4 MMOL/L (24-32); TOTAL PROTEIN 6.2 G/DL (6.4-8.2); TRIGLYCERIDES 150 MG/DL (20-135); eGFR 68 ML/MIN
[2018-06-08] MEDS: heparin, porcine 5000 units/ml vial SQ SCH ×2 (08:00→20:38)
[2018-06-08] MEDS: vitamin D (cholecalciferol) 1,000 unit tablet PO SCH (08:00)
[2018-06-08] MEDS: OMEGA-3/DHA/EPA/FISH OIL 1 EACH CAPSULE.DR PO SCH (08:00)
[2018-06-08] MEDS: carVEDilol 3.125mg tablet PO SCH (08:00)
[2018-06-08] MEDS: aspirin 325mg tablet PO SCH (08:00)
[2018-06-08] MEDS: docusate sod 100mg capsule PO SCH ×2 (08:00→20:00)
[2018-06-08] MEDS: CefTRIAXone/D5W-Rocephin 1gm 50 ML IV SCH (08:01)
[2018-06-08 10:00] VITALS: BP 105/54
[2018-06-08] MEDS: azithromycin/NS 500mg/250ml 250 ML IV SCH (10:53)
--- NOTE | 2018-06-08 17:47 | NUR ---
I asked Dr. Morales for an order for gas relief medication, because patient states at times he has gas pains. I asked the patient if he had any chest pain now and he denied that he did. I also made sure it was okay to renew the tele monitor because patient is latisha.
[2018-06-08 18:00] VITALS: BP 123/57
--- NOTE | 2018-06-08 18:12 | NUR ---
I gave patient report to Zainab TOMPKINS
--- NOTE | 2018-06-08 18:17 | NUR ---
RECEIVED REPORT FROM MILTON TOMPKINS AND ASSUMED PATIENT CARE
--- NOTE | 2018-06-08 18:19 | NUR ---
I gave patient report to Zainab TOMPKINS
[2018-06-08] MEDS: simethicone 80mg chew tab PO SCH (20:38)
[2018-06-08] MEDS: atorvastatin 10mg tablet PO SCH (20:38)
[2018-06-08 22:00] VITALS: BP 129/61
[2018-06-09 06:00] VITALS: BP 131/50
--- NOTE | 2018-06-09 06:06 | NUR ---
REPORT GIVEN TO ANNA TOMPKINS
--- NOTE | 2018-06-09 06:09 | NUR ---
Patient in room ORTHO 4021. I have received report from LEDA Lamb and had the opportunity to ask questions and assume patient care.
[2018-06-09] MEDS: azithromycin/NS 500mg/250ml 250 ML IV SCH (07:19)
[2018-06-09 07:50] LABS: BASOPHILS # (AUTO) 0.1 X10'3 (0-0.2); BASOPHILS % (AUTO) 0.7 % (0-1); EOSINOPHILS # (AUTO) 0.4 X10'3 (0-0.9); EOSINOPHILS % (AUTO) 4.9 % (0-6); HEMATOCRIT 39.8 % (42.0-52.0); HEMOGLOBIN 13.2 g/dl (14.0-17.9); LYMPHOCYTES # (AUTO) 1.4 X10'3 (1.1-4.8); LYMPHOCYTES % (AUTO) 18.3 % (21-51); MEAN CORPUSCULAR HEMOGLOBIN 29.7 PG (27.0-31.0); MEAN CORPUSCULAR HGB CONC 33.2 % (33.0-36.5); MEAN CORPUSCULAR VOLUME 89.5 FL (78-98); MEAN PLATELET VOLUME 8.1 FL (7.4-10.4); MONOCYTES # (AUTO) 0.7 X10'3 (0-0.9); MONOCYTES % (AUTO) 8.8 % (2-12); NEUTROPHILS # (AUTO) 5.1 X10'3 (1.8-7.7); NEUTROPHILS % (AUTO) 67.3 % (42-75); PLATELET COUNT 178 X10'3 (140-440); RED BLOOD COUNT 4.45 X10'6 (4.70-6.10); WHITE BLOOD COUNT 7.6 X10'3 (4.5-11.0)
[2018-06-09] MEDS: docusate sod 100mg capsule PO SCH (08:00)
[2018-06-09 08:02] LABS: ALANINE AMINOTRANSFERASE 18 U/L (12-78); ALBUMIN/GLOBULIN RATIO 0.9 (1.1-1.5); ALKALINE PHOSPHATASE 45 IU/L (46-116); ANION GAP 8 (8-16); ASPARTATE AMINO TRANSFERASE 15 U/L (10-37); BILIRUBIN,TOTAL 0.7 MG/DL (0.1-1.0); BLOOD UREA NITROGEN 11 MG/DL (7-18); BUN/CREATININE RATIO 11.3 (5.4-32.0); CALCIUM 7.8 MG/DL (8.5-10.1); CHLORIDE 107 MMOL/L (99-107); CREATININE 0.97 MG/DL (0.60-1.10); GLUCOSE 89 MG/DL (70-104); POTASSIUM 3.6 MMOL/L (3.5-5.1); SODIUM 141 MMOL/L (135-145); TOTAL CARBON DIOXIDE 26.5 MMOL/L (24-32); TOTAL PROTEIN 6.4 G/DL (6.4-8.2); eGFR 75 ML/MIN
[2018-06-09] MEDS: CefTRIAXone/D5W-Rocephin 1gm 50 ML IV SCH (09:08)
[2018-06-09] MEDS: aspirin 325mg tablet PO SCH (09:18)
[2018-06-09] MEDS: OMEGA-3/DHA/EPA/FISH OIL 1 EACH CAPSULE.DR PO SCH (09:19)
[2018-06-09] MEDS: vitamin D (cholecalciferol) 1,000 unit tablet PO SCH (09:19)
[2018-06-09] MEDS: simethicone 80mg chew tab PO SCH ×3 (09:19→20:20)
[2018-06-09] MEDS: heparin, porcine 5000 units/ml vial SQ SCH ×2 (09:21→20:20)
[2018-06-09 10:00] VITALS: BP 126/68
[2018-06-09 18:00] VITALS: BP 107/71
--- NOTE | 2018-06-09 18:11 | NUR ---
Problems reprioritized. Patient report given, questions answered & plan of care reviewed with LEDA Lamb.
--- NOTE | 2018-06-09 18:36 | NUR ---
RECEIVED REPORT FROM ANNA TOMPKINS AND ASSUMED PATIENT CARE
[2018-06-09] MEDS: atorvastatin 10mg tablet PO SCH (20:19)
[2018-06-09] MEDS: lactobacillus rhamnosus 10,000 MMU CELLS/CAPSULE PO SCH (20:20)
[2018-06-09 22:00] VITALS: BP 158/62
--- NOTE | 2018-06-10 06:00 | NUR ---
Patient in room ORTHO 4021. I have received report from Zainab TOMPKINS and had the opportunity to ask questions and assume patient care.
--- NOTE | 2018-06-10 06:14 | NUR ---
REPORT GIVEN TO GERMAN TOMPKINS
[2018-06-10 07:00] LABS: BASOPHILS % (AUTO) 0.5 % (0-1); EOSINOPHILS # (AUTO) 0.3 X10'3 (0-0.9); EOSINOPHILS % (AUTO) 5.4 % (0-6); HEMATOCRIT 39.3 % (42.0-52.0); HEMOGLOBIN 13.1 g/dl (14.0-17.9); LYMPHOCYTES # (AUTO) 1.5 X10'3 (1.1-4.8); LYMPHOCYTES % (AUTO) 25.2 % (21-51); MEAN CORPUSCULAR HEMOGLOBIN 29.9 PG (27.0-31.0); MEAN CORPUSCULAR HGB CONC 33.4 % (33.0-36.5); MEAN CORPUSCULAR VOLUME 89.4 FL (78-98); MEAN PLATELET VOLUME 7.9 FL (7.4-10.4); MONOCYTES # (AUTO) 0.7 X10'3 (0-0.9); MONOCYTES % (AUTO) 10.6 % (2-12); NEUTROPHILS # (AUTO) 3.6 X10'3 (1.8-7.7); NEUTROPHILS % (AUTO) 58.3 % (42-75); PLATELET COUNT 175 X10'3 (140-440); RED CELL DISTRIBUTION WIDTH 13.5 % (11.5-14.5); WHITE BLOOD COUNT 6.1 X10'3 (4.5-11.0)
[2018-06-10 07:21] LABS: ALANINE AMINOTRANSFERASE 25 U/L (12-78); ALBUMIN/GLOBULIN RATIO 0.9 (1.1-1.5); ALKALINE PHOSPHATASE 44 IU/L (46-116); ANION GAP 11 (8-16); ASPARTATE AMINO TRANSFERASE 20 U/L (10-37); BILIRUBIN,TOTAL 0.5 MG/DL (0.1-1.0); BLOOD UREA NITROGEN 10 MG/DL (7-18); BUN/CREATININE RATIO 10.2 (5.4-32.0); CALCIUM 8.3 MG/DL (8.5-10.1); CHLORIDE 109 MMOL/L (99-107); CREATININE 0.98 MG/DL (0.60-1.10); GLUCOSE 91 MG/DL (70-104); MAGNESIUM 2.2 MG/DL (1.5-2.4); POTASSIUM 3.6 MMOL/L (3.5-5.1); SODIUM 144 MMOL/L (135-145); TOTAL PROTEIN 6.3 G/DL (6.4-8.2); eGFR 74 ML/MIN
[2018-06-10] MEDS ORDERED: azithromycin 250mg tablet PO SCH (08:00)
[2018-06-10] MEDS: docusate sod 100mg capsule PO SCH (08:00)
[2018-06-10] MEDS: OMEGA-3/DHA/EPA/FISH OIL 1 EACH CAPSULE.DR PO SCH (08:39)
[2018-06-10] MEDS: lactobacillus rhamnosus 10,000 MMU CELLS/CAPSULE PO SCH (08:39)
[2018-06-10] MEDS: simethicone 80mg chew tab PO SCH ×3 (08:39→14:58)
[2018-06-10] MEDS: aspirin 325mg tablet PO SCH (08:39)
[2018-06-10] MEDS: heparin, porcine 5000 units/ml vial SQ SCH (08:40)
[2018-06-10] MEDS: vitamin D (cholecalciferol) 1,000 unit tablet PO SCH (08:40)
[2018-06-10] MEDS: CefTRIAXone/D5W-Rocephin 1gm 50 ML IV SCH (08:40)
== END 2018-06-10 16:13 | DRG 291 ==
LOC: ER 15:35 → ED HOLD 20:25 → ORTHO 4S 06-07 08:40
PROVIDERS: ADMIT Family Medicine; ATTEND Hospitalist
PROC: 5A09357 Assistance with Respiratory Ventilation, Less than 24 Consecutive Hours, Continuous Positive Airway Pressure (ICD-10-PCS; 2018-06-06)
PROC: B32T1ZZ Computerized Tomography (CT Scan) of Left Pulmonary Artery using Low Osmolar Contrast (ICD-10-PCS; principal; 2018-06-07)
PROC: B3201ZZ Computerized Tomography (CT Scan) of Thoracic Aorta using Low Osmolar Contrast (ICD-10-PCS; 2018-06-07)
PROC: B32S1ZZ Computerized Tomography (CT Scan) of Right Pulmonary Artery using Low Osmolar Contrast (ICD-10-PCS; 2018-06-07)
PROC: 3E02340 Introduction of Influenza Vaccine into Muscle, Percutaneous Approach (ICD-10-PCS; 2018-06-08)
DX: I11.0 Hypertensive heart disease with heart failure (principal); J18.9 Pneumonia, unspecified organism; J96.00 Acute respiratory failure, unspecified whether with hypoxia or hypercapnia; I50.23 Acute on chronic systolic (congestive) heart failure; I49.3 Ventricular premature depolarization; E78.00 Pure hypercholesterolemia, unspecified; E78.5 Hyperlipidemia, unspecified; I25.10 Atherosclerotic heart disease of native coronary artery without angina pectoris; R79.1 Abnormal coagulation profile; I34.0 Nonrheumatic mitral (valve) insufficiency; K21.9 Gastro-esophageal reflux disease without esophagitis; R00.8 Other abnormalities of heart beat; I25.2 Old myocardial infarction; Z88.8 Allergy status to other drugs, medicaments and biological substances; Z79.899 Other long term (current) drug therapy; Z79.82 Long term (current) use of aspirin; Z82.0 Family history of epilepsy and other diseases of the nervous system; Z23 Encounter for immunization
CPT/HCPCS: 36415; 71045; 71250; 71275; 80053; 80061; 81001; 82948; 83690; 83735; 83880; 84100; 84145; 84484; 85025; 85379; 85610; 85730; 87070; 93005; 93306; 94660; 94760; 96374; 96375; 96376; 99285; G0378; J0456; J0696; J1644; J1940; J2060; J7030; J8597; Q9967

== ENCOUNTER 2018-06-21 12:29 | Emergency (ER) | payer MEDICARE, MEDICAID, OTHER ==
[~2018-06-21] VITALS: Ht 177.8 cm; Wt 95.5 kg
[~2018-06-21 12:29] MED LIST changes: -FURO40TA4 PO; -POTA20TA10 PO; -VALS40TA2 PO
[2018-06-21 12:42] VITALS: BP 115/78
[2018-06-21 13:16] LABS: BASOPHILS % (AUTO) 0.5 % (0-1); EOSINOPHILS # (AUTO) 0.2 X10'3 (0-0.9); HEMOGLOBIN 14.7 g/dl (14.0-17.9); LYMPHOCYTES # (AUTO) 2.1 X10'3 (1.1-4.8); LYMPHOCYTES % (AUTO) 26.7 % (21-51); MEAN CORPUSCULAR HEMOGLOBIN 29.9 PG (27.0-31.0); MEAN CORPUSCULAR HGB CONC 33.4 % (33.0-36.5); MEAN CORPUSCULAR VOLUME 89.5 FL (78-98); MEAN PLATELET VOLUME 7.7 FL (7.4-10.4); MONOCYTES # (AUTO) 0.5 X10'3 (0-0.9); NEUTROPHILS % (AUTO) 63.8 % (42-75); PLATELET COUNT 238 X10'3 (140-440); RED BLOOD COUNT 4.91 X10'6 (4.70-6.10); RED CELL DISTRIBUTION WIDTH 13.5 % (11.5-14.5); WHITE BLOOD COUNT 7.8 X10'3 (4.5-11.0)
--- NOTE | 2018-06-21 13:19 | NUR ---
BACK FROM X RAY, CHEST XRAY COMPLETED.
[2018-06-21 13:41] LABS: ALANINE AMINOTRANSFERASE 45 U/L (12-78); ALBUMIN 3.6 G/DL (3.4-5.0); ALBUMIN/GLOBULIN RATIO 0.9 (1.1-1.5); ALKALINE PHOSPHATASE 53 IU/L (46-116); ANION GAP 8 (8-16); ASPARTATE AMINO TRANSFERASE 24 U/L (10-37); BILIRUBIN,TOTAL 0.5 MG/DL (0.1-1.0); BLOOD UREA NITROGEN 12 MG/DL (7-18); CALCIUM 8.3 MG/DL (8.5-10.1); CHLORIDE 105 MMOL/L (99-107); GLUCOSE 89 MG/DL (70-104); POTASSIUM 4.2 MMOL/L (3.5-5.1); SODIUM 142 MMOL/L (135-145); TOTAL CARBON DIOXIDE 28.7 MMOL/L (24-32); TOTAL PROTEIN 7.4 G/DL (6.4-8.2); eGFR 72 ML/MIN
== END 2018-06-21 14:32 | disposition home or self-care (01) ==
LOC: ER 12:30
DX: R05 Cough (principal); R53.1 Weakness; R25.1 Tremor, unspecified; I25.10 Atherosclerotic heart disease of native coronary artery without angina pectoris; I11.0 Hypertensive heart disease with heart failure; I50.9 Heart failure, unspecified; E78.00 Pure hypercholesterolemia, unspecified; I25.2 Old myocardial infarction; K21.9 Gastro-esophageal reflux disease without esophagitis; Z95.5 Presence of coronary angioplasty implant and graft; Z98.890 Other specified postprocedural states; Z88.8 Allergy status to other drugs, medicaments and biological substances; Z79.82 Long term (current) use of aspirin; Z79.899 Other long term (current) drug therapy; Z87.01 Personal history of pneumonia (recurrent)
CPT/HCPCS: 36415; 71045; 80053; 84484; 85025; 93005; 99284

== ENCOUNTER 2018-07-14 07:32 | Observation (INO) | payer MEDICARE, MEDICAID, OTHER ==
[~2018-07-14] VITALS: Ht 177.8 cm; Wt 94.1 kg
[2018-07-14 07:56] LABS: BASOPHILS % (AUTO) 0.2 % (0-1); EOSINOPHILS # (AUTO) 0.2 X10'3 (0-0.9); EOSINOPHILS % (AUTO) 2.7 % (0-6); HEMATOCRIT 42.5 % (42.0-52.0); HEMOGLOBIN 14.3 g/dl (14.0-17.9); LYMPHOCYTES # (AUTO) 2.1 X10'3 (1.1-4.8); LYMPHOCYTES % (AUTO) 26.9 % (21-51); MEAN CORPUSCULAR HEMOGLOBIN 30.3 PG (27.0-31.0); MEAN CORPUSCULAR HGB CONC 33.6 % (33.0-36.5); MEAN PLATELET VOLUME 7.8 FL (7.4-10.4); MONOCYTES # (AUTO) 0.5 X10'3 (0-0.9); MONOCYTES % (AUTO) 6.2 % (2-12); PLATELET COUNT 175 X10'3 (140-440); RED BLOOD COUNT 4.72 X10'6 (4.70-6.10); RED CELL DISTRIBUTION WIDTH 13.7 % (11.5-14.5); WHITE BLOOD COUNT 7.9 X10'3 (4.5-11.0)
[2018-07-14 08:12] LABS: ALANINE AMINOTRANSFERASE 54 U/L (12-78); ALBUMIN 3.4 G/DL (3.4-5.0); ALKALINE PHOSPHATASE 54 IU/L (46-116); ANION GAP 11 (8-16); ASPARTATE AMINO TRANSFERASE 27 U/L (10-37); BILIRUBIN,TOTAL 0.5 MG/DL (0.1-1.0); BLOOD UREA NITROGEN 13 MG/DL (7-18); BUN/CREATININE RATIO 12.4 (5.4-32.0); CALCIUM 8.3 MG/DL (8.5-10.1); CHLORIDE 105 MMOL/L (99-107); CREATININE 1.05 MG/DL (0.60-1.10); GLUCOSE 97 MG/DL (70-104); POTASSIUM 3.4 MMOL/L (3.5-5.1); SODIUM 140 MMOL/L (135-145); TOTAL CARBON DIOXIDE 23.9 MMOL/L (24-32); TOTAL PROTEIN 6.9 G/DL (6.4-8.2); eGFR 68 ML/MIN
[2018-07-14 08:18] LABS: D-DIMER 0.62 MG/L FEU (0-0.50); PARTIAL THROMBOPLASTIN TIME 27 SECONDS (22-32); PROTHROMBIN TIME 10.3 SECONDS (9.0-12.0)
[2018-07-14] MEDS ORDERED: potassium Cl 20 mEq SR tablet PO STA (08:35)
[2018-07-14 09:00] LABS: CLARITY,URINE CLEAR (Clear); COLOR,URINE STRAW (Yellow); GLUCOSE, URINE NEGATIVE (Neg); KETONES,URINE NEGATIVE (Neg); LEUKOCYTE ESTERASE ,URINE NEGATIVE (Neg); NITRITES, URINE NEGATIVE (Neg); OCCULT BLOOD,URINE TRACE-INTACT (Neg); PROTEIN,URINE NEGATIVE (Neg); UROBILINOGEN,URINE 0.2 E.U/dL (0.2-1.0)
[2018-07-14 09:01] LABS: UA COLLECTION TYPE CLN CATCH MIDSTREAM
[2018-07-14 09:18] LABS: BACTERIA,URINE 1+ /HPF (Neg); RBC,URINE 0-2 /HPF (0-2); SQUAMOUS EPITHELIAL CELL,UR FEW /LPF (FEW); WBC,URINE 0-4 /HPF (0-4)
[2018-07-14] MEDS ORDERED: normal saline 1000ml 1,000 ML IV ONE (09:20)
[2018-07-14] MEDS ORDERED: meclizine 12.5mg tablet PO PRN ×2 (11:40→15:45)
[2018-07-14] MEDS ORDERED: acetaminophen 325mg tablet PO PRN (11:40)
[2018-07-14] MEDS ORDERED: magnesium hydroxide 30ml (MOM) UD suspension PO PRN (11:40)
[2018-07-14] MEDS ORDERED: potassium Cl 40MEQ/NS 500ml 500 ML IV PRN ×2 (11:40)
[2018-07-14] MEDS ORDERED: mag hydrox/Alum hydrox/simeth 30ml oral suspension PO PRN (11:40)
[2018-07-14] MEDS ORDERED: magnesium Cl slow-release 64mg tablet PO PRN (11:40)
[2018-07-14] MEDS ORDERED: magnesium 4gm in 100ml NS 100 ML IV PRN (11:40)
[2018-07-14] MEDS ORDERED: potassium Cl 20 mEq SR tablet PO PRN ×2 (11:40)
[2018-07-14] MEDS ORDERED: ondansetron/PF 4mg/2ml inj IV PRN (11:40)
[2018-07-14] MEDS ORDERED: magnesium 2GM in 50ml NS 50 ML IV PRN (11:40)
[2018-07-14] MEDS ORDERED: MECL12.584 PO (12:05)
--- NOTE | 2018-07-14 12:30 | NUR ---
Patient in room PCU 3023. I have received report from Bautista TOMPKINS and had the opportunity to ask questions and assume patient care.
--- NOTE | 2018-07-14 12:55 | NUR ---
Patient arrived to U 3023A. Patient ambulated to bed with standby assist. Patient VS: T: 98.2, HR: 72, RR 16, O2 96% RA, BP 129/78. Patient reports no pain at this time. Patient oriented to room and to call light. Will continue to monitor.
[2018-07-14 13:30] VITALS: BP_SYST 134; BP_SYST 139; BP_SYST 140; BP_DIAS 73; BP_DIAS 78; BP_DIAS 79
--- NOTE | 2018-07-14 14:11 | NUR ---
DM consult: Pt with A1c 7.7 seen at bedside states he takes his DM meds per rx, checks his BG levels 2-3 times a day with resulting numbers of 110-150 per pt however states BG levels range 100-390. Pt states he monitors his CHO intake to help manage his DM and states that he takes rx steroids at home which may contribute to elevated BG levels. Pt given written and verbal DM education with referral to outpatient DM class and RD contact information. Will remain available. Addendum: 07/14/18 at [address] Amended: Links added.
[2018-07-14 15:00] VITALS: BP 122/67
[2018-07-14] MEDS ORDERED: magnesium 2GM in 50ml NS 50 ML IV ONE (15:20)
[2018-07-14 15:38] LABS: PHOSPHORUS 3.1 MG/DL (2.3-4.5)
[2018-07-14] MEDS ORDERED: nitroGLYCERIN 0.4mg SUBLingual tab SL PRN (15:45)
--- NOTE | 2018-07-14 18:32 | NUR ---
Problems reprioritized. Patient report given, questions answered & plan of care reviewed with RN DILCIA.
--- NOTE | 2018-07-14 18:32 | NUR ---
Orientee documentation: I have reviewed and agree with all interventions, assessments performed and documented by Papi TOMPKINS . Student Medication Administration: For this medication-pass time frame, all medication were reviewed, dispensed, administered and documented per hospital policy by Papi TOMPKINS.
[2018-07-14 19:00] VITALS: BP 120/63
[2018-07-14 20:00] VITALS: BP_SYST 112; BP_SYST 122; BP_SYST 127; BP_DIAS 64; BP_DIAS 71; BP_DIAS 77
[2018-07-14] MEDS: magnesium Cl slow-release 64mg tablet PO SCH (20:00)
--- NOTE | 2018-07-14 20:15 | NUR ---
Patient in room PCU 3023. I have received report from Sonia RN and Papi RN and had the opportunity to ask questions and assume patient care. Pt is resting in bed. Very pleasant. Does not appear to be in any distress. Questions answered at this time. POC reviewed.
[2018-07-14] MEDS ORDERED: temazepam 15mg capsule PO PRN (21:00)
[2018-07-14] MEDS: pravastatin 40mg tablet PO SCH (21:58)
[2018-07-14 23:00] VITALS: BP 112/64
[2018-07-15] VITALS (7 sets, daily range): BP systolic 91–150; BP diastolic 46–73
[2018-07-15 05:03] LABS: HEMATOCRIT 40.4 % (42.0-52.0); HEMOGLOBIN 13.5 g/dl (14.0-17.9); MEAN CORPUSCULAR HEMOGLOBIN 30.1 PG (27.0-31.0); MEAN CORPUSCULAR HGB CONC 33.4 g/dL (33.0-36.5); MEAN CORPUSCULAR VOLUME 90.1 FL (78-98); MEAN PLATELET VOLUME 8.1 FL (7.4-10.4); PLATELET COUNT 168 X10'3 (140-440); RED BLOOD COUNT 4.49 X10'6 (4.70-6.10); RED CELL DISTRIBUTION WIDTH 13.8 % (11.5-14.5)
[2018-07-15 05:13] LABS: ALBUMIN 3.1 G/DL (3.4-5.0); ANION GAP 8 (8-16); BLOOD UREA NITROGEN 12 MG/DL (7-18); BUN/CREATININE RATIO 11.9 (5.4-32.0); CALCIUM 8.1 MG/DL (8.5-10.1); CHLORIDE 107 MMOL/L (99-107); CREATININE 1.01 MG/DL (0.60-1.10); GLUCOSE 85 MG/DL (70-104); MAGNESIUM 2.3 MG/DL (1.5-2.4); POTASSIUM 3.5 MMOL/L (3.5-5.1); SODIUM 141 MMOL/L (135-145); TOTAL CARBON DIOXIDE 26.5 MMOL/L (24-32); eGFR 72 ML/MIN
--- NOTE | 2018-07-15 06:04 | NUR ---
Quita from Cardiac Rehab called regarding pt's Tilt Table Test that was ordered. "Patient needs to have a repeat echo and repeat carotid US before test can be done. Once this is done I can take him tomorrow."
--- NOTE | 2018-07-15 06:29 | NUR ---
Problems reprioritized. Patient report given, questions answered & plan of care reviewed with Brennon TOMPKINS.
--- NOTE | 2018-07-15 06:33 | NUR ---
Patient in room PCU 3023. I have received report from Marci TOMPKINS and had the opportunity to ask questions and assume patient care.
[2018-07-15] MEDS: magnesium Cl slow-release 64mg tablet PO SCH ×2 (07:38→20:33)
[2018-07-15] MEDS: aspirin 325mg tablet PO SCH (07:38)
[2018-07-15] MEDS: enoxaparin 40mg/0.4ml syringe SUBCUT SCH (07:39)
[2018-07-15] MEDS: K and/or MAG REPLACEMENT MC SCH (07:41)
[2018-07-15] MEDS ORDERED: BARIUM SULFATE 340 ML SUSP.RECON***PROCEDURE AREA ONLY**DONT ENTER PO ONE ×2 (14:53→15:06)
[2018-07-15] MEDS ORDERED: SIMETHICONE/SOD BICARB/CIT AC PACKET PO ONE ×2 (15:04→15:29)
[2018-07-15] MEDS: acetaminophen 325mg tablet PO PRN (17:25)
--- NOTE | 2018-07-15 18:29 | NUR ---
Orientee documentation: I have reviewed and agree with all interventions, assessments performed and documented by Kristin TOMPKINS. Orientee Medication Administration: For this medication-pass time frame, all medication were reviewed, dispensed, administered and documented per hospital policy by Kristin TOMPKINS.
--- NOTE | 2018-07-15 18:30 | NUR ---
Problems reprioritized. Patient report given, questions answered & plan of care reviewed with Deep RN. Patient stable at transfer of care.
[2018-07-15] MEDS: pravastatin 40mg tablet PO SCH (20:33)
[2018-07-16 03:00] VITALS: BP 107/60
[2018-07-16 05:46] LABS: HEMATOCRIT 40.6 % (42.0-52.0); HEMOGLOBIN 13.9 g/dl (14.0-17.9); MEAN CORPUSCULAR HEMOGLOBIN 30.6 PG (27.0-31.0); MEAN CORPUSCULAR HGB CONC 34.2 g/dL (33.0-36.5); MEAN CORPUSCULAR VOLUME 89.6 FL (78-98); MEAN PLATELET VOLUME 8.1 FL (7.4-10.4); PLATELET COUNT 170 X10'3 (140-440); RED BLOOD COUNT 4.53 X10'6 (4.70-6.10); RED CELL DISTRIBUTION WIDTH 13.7 % (11.5-14.5); WHITE BLOOD COUNT 7.1 X10'3 (4.5-11.0)
[2018-07-16 06:13] LABS: ALBUMIN 3.1 G/DL (3.4-5.0); ANION GAP 9 (8-16); BLOOD UREA NITROGEN 13 MG/DL (7-18); BUN/CREATININE RATIO 12.7 (5.4-32.0); CALCIUM 8.3 MG/DL (8.5-10.1); CHLORIDE 106 MMOL/L (99-107); CREATININE 1.02 MG/DL (0.60-1.10); GLUCOSE 86 MG/DL (70-104); MAGNESIUM 2.2 MG/DL (1.5-2.4); POTASSIUM 3.5 MMOL/L (3.5-5.1); SODIUM 141 MMOL/L (135-145); TOTAL CARBON DIOXIDE 25.9 MMOL/L (24-32); eGFR 71 ML/MIN
--- NOTE | 2018-07-16 06:17 | NUR ---
Patient in room PCU 3023. I have received report from Cyril TOMPKINS and had the opportunity to ask questions and assume patient care.
[2018-07-16] MEDS: K and/or MAG REPLACEMENT MC SCH (06:45)
[2018-07-16 07:00] VITALS: BP 107/54
[2018-07-16] MEDS: magnesium Cl slow-release 64mg tablet PO SCH (08:17)
[2018-07-16] MEDS: aspirin 325mg tablet PO SCH (08:17)
[2018-07-16] MEDS: enoxaparin 40mg/0.4ml syringe SUBCUT SCH (08:18)
[2018-07-16] MEDS: acetaminophen 325mg tablet PO PRN (10:28)
[2018-07-16] MEDS ORDERED: iohexol 300mg/ml 100ml inj. ONE (10:45)
[2018-07-16 11:00] VITALS: BP 127/67
[2018-07-16] MEDS ORDERED: ESOM40CA30 PO (12:09)
--- NOTE | 2018-07-16 15:29 | NUR ---
Pt discharged from unit at 1520. All discharged education and packet reviewed with patient before signing, belongings sent with patient. PIV and telemetry monitoring removed. Pt was wheeled down by RN and left with family by private vehicle.
== END 2018-07-16 15:20 | disposition home or self-care (01) ==
LOC: ER 07:32 → ED HOLD 11:39 → PCU 3S 12:55
PROVIDERS: ADMIT Family Medicine; ATTEND Family Medicine
DX: R55 Syncope and collapse (principal); I11.0 Hypertensive heart disease with heart failure; I50.9 Heart failure, unspecified; E78.00 Pure hypercholesterolemia, unspecified; I25.10 Atherosclerotic heart disease of native coronary artery without angina pectoris; K21.9 Gastro-esophageal reflux disease without esophagitis; I25.2 Old myocardial infarction; E87.6 Hypokalemia; E78.5 Hyperlipidemia, unspecified; I49.3 Ventricular premature depolarization
CPT/HCPCS: 36415; 71045; 71250; 74220; 80048; 80053; 81001; 83605; 83735; 83880; 84100; 84443; 84484; 85025; 85027; 85379; 85610; 85730; 87070; 93005; 95816; 96361; 96365; 96366; 96372; 97116; 97162; 99284; G0378; J3475; J8597; Q9967; J1650

== ENCOUNTER 2018-08-07 02:51 | Emergency (ER) | payer MEDICARE, MEDICAID, OTHER ==
[~2018-08-07] VITALS: Ht 177.8 cm; Wt 90.0 kg
[~2018-08-07 02:51] MED LIST changes: -ASPI-1264 PO; -CARV3.122 PO; +ESOM40CA30 PO; -MECL12.584 PO
[2018-08-07 04:58] LABS: BASOPHILS # (AUTO) 0.1 X10'3 (0-0.2); BASOPHILS % (AUTO) 0.7 % (0-1); EOSINOPHILS # (AUTO) 0.2 X10'3 (0-0.9); EOSINOPHILS % (AUTO) 3.2 % (0-6); HEMATOCRIT 41.1 % (42.0-52.0); HEMOGLOBIN 13.6 g/dl (14.0-17.9); LYMPHOCYTES % (AUTO) 26.4 % (21-51); MEAN CORPUSCULAR HEMOGLOBIN 29.6 PG (27.0-31.0); MEAN CORPUSCULAR HGB CONC 33.2 g/dL (33.0-36.5); MONOCYTES # (AUTO) 0.6 X10'3 (0-0.9); MONOCYTES % (AUTO) 8.2 % (2-12); NEUTROPHILS # (AUTO) 4.7 X10'3 (1.8-7.7); NEUTROPHILS % (AUTO) 61.5 % (42-75); PLATELET COUNT 202 X10'3 (140-440); RED BLOOD COUNT 4.61 X10'6 (4.70-6.10); RED CELL DISTRIBUTION WIDTH 13.5 % (11.5-14.5); WHITE BLOOD COUNT 7.6 X10'3 (4.5-11.0)
[2018-08-07 05:00] LABS: ALANINE AMINOTRANSFERASE 59 U/L (12-78); ALBUMIN 3.4 G/DL (3.4-5.0); ALKALINE PHOSPHATASE 52 IU/L (46-116); ANION GAP 8 (8-16); ASPARTATE AMINO TRANSFERASE 41 U/L (10-37); BILIRUBIN,TOTAL 0.6 MG/DL (0.1-1.0); BLOOD UREA NITROGEN 15 MG/DL (7-18); CALCIUM 8.3 MG/DL (8.5-10.1); CHLORIDE 106 MMOL/L (99-107); GLUCOSE 91 MG/DL (70-104); POTASSIUM 3.6 MMOL/L (3.5-5.1); SODIUM 140 MMOL/L (135-145); TOTAL CARBON DIOXIDE 25.8 MMOL/L (24-32); TOTAL PROTEIN 6.9 G/DL (6.4-8.2); eGFR 72 ML/MIN
[2018-08-07 05:06] LABS: PROTHROMBIN TIME 10.3 SECONDS (9.0-12.0)
[2018-08-07 05:07] LABS: PARTIAL THROMBOPLASTIN TIME 28 SECONDS (22-32)
[2018-08-07 06:43] LABS: D-DIMER 0.63 MG/L FEU (0-0.50)
[2018-08-07 07:00] VITALS: BP 118/66
== END 2018-08-07 07:19 | disposition home or self-care (01) ==
LOC: ER 04:20
DX: R06.02 Shortness of breath (principal); R07.89 Other chest pain; I25.10 Atherosclerotic heart disease of native coronary artery without angina pectoris; E78.00 Pure hypercholesterolemia, unspecified; I25.2 Old myocardial infarction; K21.9 Gastro-esophageal reflux disease without esophagitis; I11.0 Hypertensive heart disease with heart failure; I50.9 Heart failure, unspecified; G30.9 Alzheimer's disease, unspecified; F02.80 Dementia in other diseases classified elsewhere, unspecified severity, without behavioral disturbance, psychotic disturbance, mood disturbance, and anxiety; Z79.899 Other long term (current) drug therapy; Z88.8 Allergy status to other drugs, medicaments and biological substances; Z98.61 Coronary angioplasty status
CPT/HCPCS: 36415; 71045; 80053; 83880; 84484; 85025; 85379; 85610; 85730; 93005; 99284

== ENCOUNTER 2018-08-28 00:11 | Emergency (ER) | payer MEDICARE, MEDICAID, OTHER ==
[~2018-08-28] VITALS: Ht 177.8 cm; Wt 100.0 kg
[2018-08-28 01:31] LABS: ALANINE AMINOTRANSFERASE 44 U/L (12-78); ALBUMIN 3.4 G/DL (3.4-5.0); ALKALINE PHOSPHATASE 54 IU/L (46-116); ANION GAP 5 (8-16); ASPARTATE AMINO TRANSFERASE 28 U/L (10-37); BILIRUBIN,TOTAL 0.3 MG/DL (0.1-1.0); BLOOD UREA NITROGEN 22 MG/DL (7-18); BUN/CREATININE RATIO 18.8 (5.4-32.0); CALCIUM 8.5 MG/DL (8.5-10.1); CHLORIDE 106 MMOL/L (99-107); CREATININE 1.17 MG/DL (0.60-1.10); GLUCOSE 96 MG/DL (70-104); POTASSIUM 3.6 MMOL/L (3.5-5.1); SODIUM 140 MMOL/L (135-145); TOTAL CARBON DIOXIDE 28.8 MMOL/L (24-32); TOTAL PROTEIN 6.9 G/DL (6.4-8.2); eGFR 60 ML/MIN
[2018-08-28 01:51] LABS: BASOPHILS # (AUTO) 0.1 X10'3 (0-0.2); BASOPHILS % (AUTO) 0.7 % (0-1); EOSINOPHILS # (AUTO) 0.3 X10'3 (0-0.9); EOSINOPHILS % (AUTO) 3.3 % (0-6); HEMATOCRIT 40.3 % (42.0-52.0); HEMOGLOBIN 13.7 g/dl (14.0-17.9); LYMPHOCYTES # (AUTO) 2.9 X10'3 (1.1-4.8); LYMPHOCYTES % (AUTO) 31.9 % (21-51); MEAN CORPUSCULAR HGB CONC 33.9 g/dL (33.0-36.5); MEAN CORPUSCULAR VOLUME 88.5 FL (78-98); MEAN PLATELET VOLUME 8.2 FL (7.4-10.4); MONOCYTES # (AUTO) 0.7 X10'3 (0-0.9); MONOCYTES % (AUTO) 8.1 % (2-12); NEUTROPHILS # (AUTO) 5.1 X10'3 (1.8-7.7); PLATELET COUNT 184 X10'3 (140-440); RED BLOOD COUNT 4.56 X10'6 (4.70-6.10); RED CELL DISTRIBUTION WIDTH 13.3 % (11.5-14.5); WHITE BLOOD COUNT 9.1 X10'3 (4.5-11.0)
[2018-08-28 01:56] VITALS: BP 120/61
== END 2018-08-28 02:15 | disposition home or self-care (01) ==
LOC: ER 00:11
DX: R00.2 Palpitations (principal); I11.0 Hypertensive heart disease with heart failure; I50.9 Heart failure, unspecified; I25.10 Atherosclerotic heart disease of native coronary artery without angina pectoris; I25.2 Old myocardial infarction; K21.9 Gastro-esophageal reflux disease without esophagitis; Z95.1 Presence of aortocoronary bypass graft; Z88.8 Allergy status to other drugs, medicaments and biological substances
CPT/HCPCS: 36415; 71045; 80053; 83735; 83880; 84484; 85025; 93005; 99284

== ENCOUNTER 2018-09-30 10:19 | Emergency (ER) | payer MEDICARE, MEDICAID, OTHER ==
[~2018-09-30] VITALS: Ht 177.8 cm; Wt 89.0 kg
[~2018-09-30 10:19] MED LIST changes: -ESOM40CA30 PO; +ESOM40CA49 PO
[2018-09-30 11:06] LABS: BASOPHILS % (AUTO) 0.7 % (0-1); EOSINOPHILS # (AUTO) 0.2 X10'3 (0-0.9); EOSINOPHILS % (AUTO) 3.3 % (0-6); HEMATOCRIT 41.3 % (42.0-52.0); HEMOGLOBIN 13.9 g/dl (14.0-17.9); LYMPHOCYTES # (AUTO) 1.8 X10'3 (1.1-4.8); LYMPHOCYTES % (AUTO) 25.9 % (21-51); MEAN CORPUSCULAR HEMOGLOBIN 29.7 PG (27.0-31.0); MEAN CORPUSCULAR HGB CONC 33.8 g/dL (33.0-36.5); MEAN CORPUSCULAR VOLUME 88.1 FL (78-98); MEAN PLATELET VOLUME 7.8 FL (7.4-10.4); MONOCYTES # (AUTO) 0.5 X10'3 (0-0.9); MONOCYTES % (AUTO) 7.1 % (2-12); NEUTROPHILS # (AUTO) 4.4 X10'3 (1.8-7.7); PLATELET COUNT 183 X10'3 (140-440); RED BLOOD COUNT 4.68 X10'6 (4.70-6.10); RED CELL DISTRIBUTION WIDTH 13.4 % (11.5-14.5)
[2018-09-30 11:22] LABS: ALANINE AMINOTRANSFERASE 60 U/L (12-78); ALBUMIN 3.5 G/DL (3.4-5.0); ALKALINE PHOSPHATASE 56 IU/L (46-116); ANION GAP 7 (8-16); ASPARTATE AMINO TRANSFERASE 33 U/L (10-37); BILIRUBIN,TOTAL 0.6 MG/DL (0.1-1.0); BLOOD UREA NITROGEN 17 MG/DL (7-18); CALCIUM 9.2 MG/DL (8.5-10.1); CHLORIDE 106 MMOL/L (99-107); GLUCOSE 91 MG/DL (70-104); POTASSIUM 3.8 MMOL/L (3.5-5.1); SODIUM 140 MMOL/L (135-145); TOTAL CARBON DIOXIDE 26.7 MMOL/L (24-32); TOTAL PROTEIN 7.1 G/DL (6.4-8.2); eGFR 72 ML/MIN
[2018-09-30 11:32] LABS: PARTIAL THROMBOPLASTIN TIME 28 SECONDS (22-32)
[2018-09-30] MEDS ORDERED: FURO-150 PO (15:12)
[2018-09-30] MEDS ORDERED: LISI10TA4 PO (15:16)
[2018-09-30] MEDS ORDERED: furosemide 20MG tablet PO ONE (15:20)
[2018-09-30 15:47] VITALS: BP 141/74
== END 2018-09-30 15:51 | disposition home or self-care (01) ==
LOC: ER 10:20
DX: I11.0 Hypertensive heart disease with heart failure (principal); I50.9 Heart failure, unspecified; I25.10 Atherosclerotic heart disease of native coronary artery without angina pectoris; E78.00 Pure hypercholesterolemia, unspecified; I25.2 Old myocardial infarction; K21.9 Gastro-esophageal reflux disease without esophagitis; Z95.5 Presence of coronary angioplasty implant and graft; Z98.890 Other specified postprocedural states; Z88.8 Allergy status to other drugs, medicaments and biological substances; Z79.899 Other long term (current) drug therapy
CPT/HCPCS: 36415; 71045; 80053; 83880; 84484; 85025; 85610; 85730; 93005; 99284

== ENCOUNTER 2019-01-31 03:04 | Emergency (ER) | payer MEDICARE, MEDICAID ==
[~2019-01-31] VITALS: Ht 177.8 cm; Wt 90.9 kg
[~2019-01-31 03:04] MED LIST changes: +FURO-150 PO; +LISI10TA4 PO
[2019-01-31 03:06] VITALS: BP 140/72
[2019-01-31 03:33] LABS: BASOPHILS # (AUTO) 0.1 X10'3 (0-0.2); BASOPHILS % (AUTO) 0.6 % (0-1); EOSINOPHILS # (AUTO) 0.3 X10'3 (0-0.9); EOSINOPHILS % (AUTO) 3.6 % (0-6); HEMATOCRIT 39.6 % (42.0-52.0); HEMOGLOBIN 13.2 g/dl (14.0-17.9); LYMPHOCYTES # (AUTO) 2.9 X10'3 (1.1-4.8); LYMPHOCYTES % (AUTO) 31.5 % (21-51); MEAN CORPUSCULAR HEMOGLOBIN 30.5 PG (27.0-31.0); MEAN CORPUSCULAR HGB CONC 33.5 g/dL (33.0-36.5); MEAN PLATELET VOLUME 7.5 FL (7.4-10.4); MONOCYTES # (AUTO) 0.8 X10'3 (0-0.9); MONOCYTES % (AUTO) 8.1 % (2-12); NEUTROPHILS # (AUTO) 5.3 X10'3 (1.8-7.7); NEUTROPHILS % (AUTO) 56.2 % (42-75); PLATELET COUNT 181 X10'3 (140-440); RED BLOOD COUNT 4.35 X10'6 (4.70-6.10); RED CELL DISTRIBUTION WIDTH 14.3 % (11.5-14.5); WHITE BLOOD COUNT 9.4 X10'3 (4.5-11.0)
[2019-01-31 03:40] LABS: ALANINE AMINOTRANSFERASE 68 U/L (12-78); ALBUMIN 3.3 G/DL (3.4-5.0); ALKALINE PHOSPHATASE 46 IU/L (46-116); ANION GAP 7 (8-16); ASPARTATE AMINO TRANSFERASE 35 U/L (10-37); BILIRUBIN,TOTAL 0.3 MG/DL (0.1-1.0); BLOOD UREA NITROGEN 13 MG/DL (7-18); BUN/CREATININE RATIO 11.2 (5.4-32.0); CHLORIDE 107 MMOL/L (99-107); CREATININE 1.16 MG/DL (0.60-1.10); GLUCOSE 104 MG/DL (70-104); POTASSIUM 3.5 MMOL/L (3.5-5.1); SODIUM 142 MMOL/L (135-145); TOTAL CARBON DIOXIDE 27.6 MMOL/L (24-32); TOTAL PROTEIN 6.7 G/DL (6.4-8.2); eGFR 61 ML/MIN
[2019-01-31 03:53] LABS: PARTIAL THROMBOPLASTIN TIME 27 SECONDS (22-32)
[2019-01-31] MEDS ORDERED: potassium Cl 20 mEq SR tablet PO ONE (04:15)
[2019-01-31] MEDS ORDERED: magnesium oxide 400mg tablet PO ONE (04:15)
[2019-01-31 04:17] LABS: ETHANOL < 0.010 GM/DL (0.0-0.010)
[2019-01-31 04:32] LABS: URINE AMPHETAMINE SCREEN NEGATIVE (Neg); URINE BARBITUATE SCREEN NEGATIVE (Neg); URINE BENZODIAZEPINES SCREEN NEGATIVE (Neg); URINE CANNABINOID SCREEN NEGATIVE (Neg); URINE COCAINE SCREEN NEGATIVE (Neg); URINE METHADONE SCREEN NEGATIVE (Neg); URINE OPIATE SCREEN NEGATIVE (Neg); URINE PHENCYCLIDINE SCREEN NEGATIVE (Neg)
== END 2019-01-31 04:49 | disposition home or self-care (01) ==
LOC: ER 03:05
DX: R00.2 Palpitations (principal); R53.1 Weakness; I25.10 Atherosclerotic heart disease of native coronary artery without angina pectoris; I11.0 Hypertensive heart disease with heart failure; I50.9 Heart failure, unspecified; E78.00 Pure hypercholesterolemia, unspecified; I25.2 Old myocardial infarction; K21.9 Gastro-esophageal reflux disease without esophagitis; Z98.62 Peripheral vascular angioplasty status; Z98.890 Other specified postprocedural states; Z88.8 Allergy status to other drugs, medicaments and biological substances; Z79.899 Other long term (current) drug therapy
CPT/HCPCS: 36415; 71045; 80053; 80305; 80320; 83735; 84484; 85025; 85610; 85730; 93005; 99284

== ENCOUNTER 2019-02-05 09:25 | Emergency (ER) | payer MEDICARE, MEDICAID ==
[~2019-02-05] VITALS: Ht 177.8 cm; Wt 88.0 kg
[~2019-02-05 09:25] MED LIST changes: -ESOM40CA49 PO; -FURO-150 PO; -LISI10TA4 PO
[2019-02-05 11:51] LABS: BASOPHILS % (AUTO) 0.3 % (0-1); EOSINOPHILS # (AUTO) 0.1 X10'3 (0-0.9); EOSINOPHILS % (AUTO) 1.1 % (0-6); HEMATOCRIT 40.7 % (42.0-52.0); HEMOGLOBIN 13.8 g/dl (14.0-17.9); LYMPHOCYTES # (AUTO) 1.7 X10'3 (1.1-4.8); LYMPHOCYTES % (AUTO) 23.6 % (21-51); MEAN CORPUSCULAR HEMOGLOBIN 30.6 PG (27.0-31.0); MEAN CORPUSCULAR HGB CONC 33.9 g/dL (33.0-36.5); MEAN CORPUSCULAR VOLUME 90.1 FL (78-98); MEAN PLATELET VOLUME 6.9 FL (7.4-10.4); MONOCYTES # (AUTO) 0.5 X10'3 (0-0.9); MONOCYTES % (AUTO) 6.8 % (2-12); NEUTROPHILS % (AUTO) 68.2 % (42-75); PLATELET COUNT 181 X10'3 (140-440); RED BLOOD COUNT 4.52 X10'6 (4.70-6.10); RED CELL DISTRIBUTION WIDTH 14.3 % (11.5-14.5); WHITE BLOOD COUNT 7.4 X10'3 (4.5-11.0)
[2019-02-05 12:04] LABS: ALANINE AMINOTRANSFERASE 51 U/L (12-78); ALBUMIN 3.6 G/DL (3.4-5.0); ALKALINE PHOSPHATASE 51 IU/L (46-116); ANION GAP 6 (8-16); ASPARTATE AMINO TRANSFERASE 23 U/L (10-37); BILIRUBIN,TOTAL 0.7 MG/DL (0.1-1.0); BLOOD UREA NITROGEN 13 MG/DL (7-18); BUN/CREATININE RATIO 12.1 (5.4-32.0); CALCIUM 8.3 MG/DL (8.5-10.1); CHLORIDE 108 MMOL/L (99-107); CREATININE 1.07 MG/DL (0.60-1.10); GLUCOSE 90 MG/DL (70-104); SODIUM 142 MMOL/L (135-145); TOTAL CARBON DIOXIDE 28.1 MMOL/L (24-32); TOTAL PROTEIN 7.2 G/DL (6.4-8.2); eGFR 67 ML/MIN
[2019-02-05 13:20] VITALS: BP 137/77
== END 2019-02-05 13:38 | disposition home or self-care (01) ==
LOC: ER 09:26
DX: R53.1 Weakness (principal); T46.2X5A Adverse effect of other antidysrhythmic drugs, initial encounter; R20.2 Paresthesia of skin; R23.2 Flushing; I25.10 Atherosclerotic heart disease of native coronary artery without angina pectoris; I11.0 Hypertensive heart disease with heart failure; I50.9 Heart failure, unspecified; E78.00 Pure hypercholesterolemia, unspecified; I25.2 Old myocardial infarction; K21.9 Gastro-esophageal reflux disease without esophagitis; G30.9 Alzheimer's disease, unspecified; Z98.61 Coronary angioplasty status; Z98.890 Other specified postprocedural states; Z88.8 Allergy status to other drugs, medicaments and biological substances; Z79.899 Other long term (current) drug therapy; Y92.89 Other specified places as the place of occurrence of the external cause
CPT/HCPCS: 36415; 80053; 84484; 85025; 93005; 99284

== ENCOUNTER 2019-02-12 09:33 | Observation (INO) | payer MEDICARE, MEDICAID ==
[~2019-02-12] VITALS: Ht 177.8 cm; Wt 89.7 kg
--- NOTE | 2019-02-12 09:49 | NUR ---
mathematical technician at bedside, pt is resting quietly on gurney, resp even and unlabored, no chest pain at this time, pt is waiting to be evaluated by provider
[2019-02-12 10:20] LABS: BASOPHILS % (AUTO) 0.5 % (0-1); EOSINOPHILS # (AUTO) 0.2 X10'3 (0-0.9); EOSINOPHILS % (AUTO) 2.6 % (0-6); HEMATOCRIT 42.6 % (42.0-52.0); HEMOGLOBIN 14.3 g/dl (14.0-17.9); LYMPHOCYTES # (AUTO) 1.9 X10'3 (1.1-4.8); MEAN CORPUSCULAR HEMOGLOBIN 30.4 PG (27.0-31.0); MEAN CORPUSCULAR HGB CONC 33.6 g/dL (33.0-36.5); MEAN CORPUSCULAR VOLUME 90.2 FL (78-98); MEAN PLATELET VOLUME 7.3 FL (7.4-10.4); MONOCYTES # (AUTO) 0.5 X10'3 (0-0.9); MONOCYTES % (AUTO) 6.8 % (2-12); NEUTROPHILS # (AUTO) 5.1 X10'3 (1.8-7.7); NEUTROPHILS % (AUTO) 66.1 % (42-75); PLATELET COUNT 185 X10'3 (140-440); RED BLOOD COUNT 4.72 X10'6 (4.70-6.10); RED CELL DISTRIBUTION WIDTH 14.1 % (11.5-14.5); WHITE BLOOD COUNT 7.8 X10'3 (4.5-11.0)
[2019-02-12 10:37] LABS: ALANINE AMINOTRANSFERASE 37 U/L (12-78); ALBUMIN 3.6 G/DL (3.4-5.0); ALKALINE PHOSPHATASE 47 IU/L (46-116); ANION GAP 7 (8-16); ASPARTATE AMINO TRANSFERASE 19 U/L (10-37); BILIRUBIN,TOTAL 0.8 MG/DL (0.1-1.0); BLOOD UREA NITROGEN 15 MG/DL (7-18); CALCIUM 8.5 MG/DL (8.5-10.1); CHLORIDE 107 MMOL/L (99-107); GLUCOSE 93 MG/DL (70-104); SODIUM 141 MMOL/L (135-145); TOTAL CARBON DIOXIDE 27.3 MMOL/L (24-32); TOTAL PROTEIN 7.2 G/DL (6.4-8.2); eGFR 72 ML/MIN
[2019-02-12 10:39] LABS: PARTIAL THROMBOPLASTIN TIME 28 SECONDS (22-32)
--- NOTE | 2019-02-12 10:57 | NUR ---
pt is sleeping, resp even and unlabored
[2019-02-12] MEDS ORDERED: nitroGLYCERIN 0.4mg/hour patch TD ONE (11:30)
[2019-02-12] MEDS ORDERED: normal saline 1000ML IV soln IVB ONE (11:30)
[2019-02-12] MEDS ORDERED: magnesium hydroxide 30ml (MOM) UD suspension PO PRN (11:55)
[2019-02-12] MEDS ORDERED: HYDROcodone/acetaminophen 5mg/325mg tablet PO PRN (11:55)
[2019-02-12] MEDS ORDERED: magnesium Cl slow-release 64mg tablet PO PRN (11:55)
[2019-02-12] MEDS ORDERED: potassium CL 10mEq/100ml bag 100 ML IV PRN ×2 (11:55)
[2019-02-12] MEDS ORDERED: nitroGLYCERIN 0.4mg SUBLingual tab SL PRN ×2 (11:55→19:25)
[2019-02-12] MEDS ORDERED: acetaminophen 325mg tablet PO PRN ×2 (11:55)
[2019-02-12] MEDS ORDERED: magnesium 4gm in 100ml NS 100 ML IV PRN (11:55)
[2019-02-12] MEDS ORDERED: potassium Cl 20 mEq SR tablet PO PRN ×2 (11:55)
[2019-02-12] MEDS ORDERED: ondansetron/PF 4mg/2ml inj IV PRN (11:55)
[2019-02-12] MEDS ORDERED: magnesium 2GM in 50ml NS 50 ML IV PRN (11:55)
[2019-02-12] MEDS ORDERED: morphine 2 MG/ML inj. syringe IV PRN ×2 (11:55)
[2019-02-12] MEDS ORDERED: HYDROcodone/acetaminophen 10/325mg tab PO PRN (11:55)
--- NOTE | 2019-02-12 12:52 | NUR ---
report to Jessica TOMPKINS
[2019-02-12 13:00] VITALS: BP 129/72
[2019-02-12 15:00] VITALS: BP 127/67
--- NOTE | 2019-02-12 15:00 | NUR ---
Samira, RM 7609 B. Could we have a diet order please? Thank you, Jessica, U ext [phone]
--- NOTE | 2019-02-12 18:19 | NUR ---
Problems reprioritized. Patient report given, questions answered & plan of care reviewed with LEDA Lockett.
[2019-02-12 19:00] VITALS: BP 120/59
[2019-02-12] MEDS ORDERED: regadenoson 0.4mg/5ml syringe IV ONE (19:25)
[2019-02-12] MEDS ORDERED: metoprolol tartrate 1mg/ml inj IV PRN (19:25)
[2019-02-12] MEDS ORDERED: aminophylline 250mg/10ml inj. IV PRN (19:25)
[2019-02-12 23:00] VITALS: BP 106/61
[2019-02-12] MEDS: mag hydrox/Alum hydrox/simeth 30ml oral suspension PO PRN (23:18)
[2019-02-13] VITALS (11 sets, daily range): BP systolic 101–123; BP diastolic 54–64
[2019-02-13 06:52] LABS: BASOPHILS # (AUTO) 0.1 X10'3 (0-0.2); BASOPHILS % (AUTO) 0.5 % (0-1); EOSINOPHILS # (AUTO) 0.2 X10'3 (0-0.9); EOSINOPHILS % (AUTO) 1.8 % (0-6); HEMATOCRIT 39.7 % (42.0-52.0); HEMOGLOBIN 13.3 g/dl (14.0-17.9); LYMPHOCYTES % (AUTO) 17.5 % (21-51); MEAN CORPUSCULAR HEMOGLOBIN 30.5 PG (27.0-31.0); MEAN CORPUSCULAR HGB CONC 33.6 g/dL (33.0-36.5); MEAN CORPUSCULAR VOLUME 90.7 FL (78-98); MEAN PLATELET VOLUME 7.6 FL (7.4-10.4); MONOCYTES # (AUTO) 0.9 X10'3 (0-0.9); MONOCYTES % (AUTO) 7.6 % (2-12); NEUTROPHILS # (AUTO) 8.3 X10'3 (1.8-7.7); NEUTROPHILS % (AUTO) 72.6 % (42-75); PLATELET COUNT 164 X10'3 (140-440); RED BLOOD COUNT 4.38 X10'6 (4.70-6.10); RED CELL DISTRIBUTION WIDTH 14.2 % (11.5-14.5); WHITE BLOOD COUNT 11.4 X10'3 (4.5-11.0)
--- NOTE | 2019-02-13 06:53 | NUR ---
Patient in room PCU 3028. I have received report from Cathryn TOMPKINS, and had the opportunity to ask questions and assume patient care.
[2019-02-13 07:14] LABS: ALBUMIN 3.3 G/DL (3.4-5.0); ANION GAP 9 (8-16); BLOOD UREA NITROGEN 15 MG/DL (7-18); BUN/CREATININE RATIO 16.3 (5.4-32.0); CALCIUM 8.2 MG/DL (8.5-10.1); CHLORIDE 108 MMOL/L (99-107); CHOL/HDL RATIO 2.4 (0.00-4.99); CHOLESTEROL 90 MG/DL (0-200); CREATININE 0.92 MG/DL (0.60-1.10); GLUCOSE 86 MG/DL (70-104); HDL CHOLESTEROL 37 MG/DL (35-60); LDL CHOLESTEROL 46 MG/DL (50-100); MAGNESIUM 2.1 MG/DL (1.5-2.4); POTASSIUM 3.5 MMOL/L (3.5-5.1); SODIUM 143 MMOL/L (135-145); TOTAL CARBON DIOXIDE 25.7 MMOL/L (24-32); TRIGLYCERIDES 70 MG/DL (20-135); eGFR 80 ML/MIN
[2019-02-13] MEDS ORDERED: CHOL10002 PO ×2 (12:28→12:38)
[2019-02-13] MEDS ORDERED: ASPI-611 PO ×2 (12:28→12:38)
[2019-02-13] MEDS ORDERED: OMEG1CAP2 (12:28)
[2019-02-13] MEDS ORDERED: PRAV40TA3 PO ×2 (12:28→12:38)
[2019-02-13] MEDS ORDERED: NITR0.4T SL ×2 (12:28→12:38)
[2019-02-13] MEDS ORDERED: OMEG1CAP13 PO (12:38)
[2019-02-13] MEDS: aspirin 81mg tablet.DR PO SCH (15:25)
[2019-02-13] MEDS: enoxaparin 40mg/0.4ml syringe SQ SCH (15:25)
[2019-02-13] MEDS: K and/or MAG REPLACEMENT MC SCH (15:28)
[2019-02-13] MEDS ORDERED: nitroGLYCERIN 0.4mg SUBLingual tab SL PRN (18:45)
--- NOTE | 2019-02-13 18:54 | NUR ---
Patient in room PCU 3028. I have received report from Suzanna TOMPKINS and had the opportunity to ask questions and assume patient care.
[2019-02-13] MEDS ORDERED: pravastatin 40mg tablet PO SCH (21:00)
[2019-02-14 02:00] VITALS: BP 108/39
[2019-02-14 05:52] LABS: BASOPHILS % (AUTO) 0.7 % (0-1); EOSINOPHILS # (AUTO) 0.2 X10'3 (0-0.9); HEMATOCRIT 37.9 % (42.0-52.0); HEMOGLOBIN 12.9 g/dl (14.0-17.9); LYMPHOCYTES # (AUTO) 1.9 X10'3 (1.1-4.8); LYMPHOCYTES % (AUTO) 27.3 % (21-51); MEAN CORPUSCULAR HEMOGLOBIN 30.9 PG (27.0-31.0); MEAN CORPUSCULAR HGB CONC 33.9 g/dL (33.0-36.5); MEAN CORPUSCULAR VOLUME 91.1 FL (78-98); MEAN PLATELET VOLUME 7.8 FL (7.4-10.4); MONOCYTES # (AUTO) 0.6 X10'3 (0-0.9); MONOCYTES % (AUTO) 9.3 % (2-12); NEUTROPHILS # (AUTO) 4.1 X10'3 (1.8-7.7); NEUTROPHILS % (AUTO) 59.7 % (42-75); PLATELET COUNT 161 X10'3 (140-440); RED BLOOD COUNT 4.16 X10'6 (4.70-6.10); RED CELL DISTRIBUTION WIDTH 14.5 % (11.5-14.5); WHITE BLOOD COUNT 6.9 X10'3 (4.5-11.0)
[2019-02-14 06:00] VITALS: BP 110/62
[2019-02-14 06:01] LABS: ANION GAP 9 (8-16); BLOOD UREA NITROGEN 10 MG/DL (7-18); CALCIUM 8.1 MG/DL (8.5-10.1); CHLORIDE 108 MMOL/L (99-107); CREATININE 0.91 MG/DL (0.60-1.10); GLUCOSE 84 MG/DL (70-104); MAGNESIUM 2.1 MG/DL (1.5-2.4); POTASSIUM 3.5 MMOL/L (3.5-5.1); SODIUM 143 MMOL/L (135-145); TOTAL CARBON DIOXIDE 26.3 MMOL/L (24-32); eGFR 81 ML/MIN
--- NOTE | 2019-02-14 06:04 | NUR ---
Problems reprioritized. Patient report given, questions answered & plan of care reviewed with Suzanna TOMPKINS.
--- NOTE | 2019-02-14 06:25 | NUR ---
Patient in room PCU 3028. I have received report from Yordy RN, and had the opportunity to ask questions and assume patient care.
[2019-02-14] MEDS ORDERED: vitamin D (cholecalciferol) 1,000 unit tablet PO SCH (08:00)
[2019-02-14] MEDS ORDERED: non-formulary drug (Aspirin (Aspir 81) 1 TAB) PO SCH (08:00)
[2019-02-14] MEDS: K and/or MAG REPLACEMENT MC SCH (08:00)
[2019-02-14] MEDS ORDERED: non-formulary drug (Fish Oil/Dha/Epa (Fish Oil 1,200 Mg Fish Oil) 1 EACH) PO SCH (08:00)
[2019-02-14] MEDS ORDERED: multivitamins, therapeutics tablet PO SCH (08:00)
[2019-02-14] MEDS: aspirin 81mg tablet.DR PO SCH (08:26)
[2019-02-14] MEDS: enoxaparin 40mg/0.4ml syringe SQ SCH (08:26)
[2019-02-14] MEDS ORDERED: lisinopril 2.5mg tablet PO SCH (08:50)
[2019-02-14] MEDS ORDERED: furosemide 20MG tablet PO SCH (08:50)
--- NOTE | 2019-02-14 10:07 | NUR ---
Refused New lasix order. [employer].
--- NOTE | 2019-02-14 10:25 | NUR ---
Update Page to Dr. Todd PAGER ID: [phone] MESSAGE: Chris Hogan [id number] Nursing sees discharge paperwork: We are anticipating a discharge order from you. Pt. did mary Beavers. Suzanna TOMPKINSbusiness management manager [phone]
[2019-02-14] MEDS: mag hydrox/Alum hydrox/simeth 30ml oral suspension PO PRN (10:41)
[2019-02-14 11:00] VITALS: BP 124/62
[2019-02-14] MEDS ORDERED: FAMO-128 PO (11:09)
--- NOTE | 2019-02-14 12:00 | NUR ---
Discharged to Home: Updates to medications, Rx called to [facility]. Pt. has all belongings and has transportation home with a family friend. All follow-up is discussed with Pt. A Starch Factory Laborer appointment is previously scheduled for . Feb 17. Alert and Oriented to person place time and situation. Pt. has written instructions and teaching handouts to refer to Medication schedule, CHF needs Chest Pain needs, and GI up set.
== END 2019-02-14 12:00 | disposition home or self-care (01) ==
LOC: ER 09:34 → INTOOBSV 13:01 → PCU 3S 13:01
PROVIDERS: ADMIT Hospitalist; ATTEND Hospitalist
DX: R07.9 Chest pain, unspecified (principal); I25.10 Atherosclerotic heart disease of native coronary artery without angina pectoris; G30.9 Alzheimer's disease, unspecified; I50.22 Chronic systolic (congestive) heart failure; I11.0 Hypertensive heart disease with heart failure; R42 Dizziness and giddiness; K21.9 Gastro-esophageal reflux disease without esophagitis; I25.2 Old myocardial infarction; E78.00 Pure hypercholesterolemia, unspecified; Z79.82 Long term (current) use of aspirin; Z79.899 Other long term (current) drug therapy; Z82.0 Family history of epilepsy and other diseases of the nervous system; E78.5 Hyperlipidemia, unspecified
CPT/HCPCS: 36415; 71045; 78452; 80048; 80053; 80061; 83735; 84484; 85025; 85610; 85730; 87081; 93005; 93017; 96372; 99284; A9500; G0378; J2785; 96360; 99285; J1650

== ENCOUNTER 2019-04-25 00:19 | Emergency (ER) | payer MEDICARE, MEDICAID ==
[~2019-04-25] VITALS: Ht 177.8 cm; Wt 95.0 kg
[~2019-04-25 00:19] MED LIST changes: +ASPI-611 PO; +FAMO-128 PO; -FISH1CAP15 PO; +NITR0.4T SL; -NITR0.4T51 SL; +OMEG1CAP13 PO; +OMEG1CAP2; -PRAV20TA4 PO; +PRAV40TA3 PO
[2019-04-25 01:20] LABS: BASOPHILS # (AUTO) 0.1 X10'3 (0-0.2); BASOPHILS % (AUTO) 0.6 % (0-1); EOSINOPHILS # (AUTO) 0.4 X10'3 (0-0.9); EOSINOPHILS % (AUTO) 4.3 % (0-6); HEMATOCRIT 39.2 % (42.0-52.0); HEMOGLOBIN 13.6 g/dl (14.0-17.9); LYMPHOCYTES # (AUTO) 2.8 X10'3 (1.1-4.8); LYMPHOCYTES % (AUTO) 32.4 % (21-51); MEAN CORPUSCULAR HEMOGLOBIN 31.1 PG (27.0-31.0); MEAN CORPUSCULAR HGB CONC 34.7 g/dL (33.0-36.5); MEAN CORPUSCULAR VOLUME 89.7 FL (78-98); MEAN PLATELET VOLUME 7.3 FL (7.4-10.4); MONOCYTES # (AUTO) 0.7 X10'3 (0-0.9); MONOCYTES % (AUTO) 8.3 % (2-12); NEUTROPHILS # (AUTO) 4.6 X10'3 (1.8-7.7); NEUTROPHILS % (AUTO) 54.4 % (42-75); PLATELET COUNT 191 X10'3 (140-440); RED BLOOD COUNT 4.38 X10'6 (4.70-6.10); RED CELL DISTRIBUTION WIDTH 13.2 % (11.5-14.5); WHITE BLOOD COUNT 8.6 X10'3 (4.5-11.0)
[2019-04-25 01:56] LABS: ALANINE AMINOTRANSFERASE 36 U/L (12-78); ALBUMIN 3.3 G/DL (3.4-5.0); ALBUMIN/GLOBULIN RATIO 0.9 (1.1-1.5); ALKALINE PHOSPHATASE 51 IU/L (46-116); ANION GAP 7 (8-16); ASPARTATE AMINO TRANSFERASE 28 U/L (10-37); BILIRUBIN,TOTAL 0.4 MG/DL (0.1-1.0); BLOOD UREA NITROGEN 17 MG/DL (7-18); BUN/CREATININE RATIO 15.5 (5.4-32.0); CALCIUM 8.3 MG/DL (8.5-10.1); CHLORIDE 107 MMOL/L (99-107); GLUCOSE 94 MG/DL (70-104); POTASSIUM 3.8 MMOL/L (3.5-5.1); SODIUM 141 MMOL/L (135-145); TOTAL CARBON DIOXIDE 26.6 MMOL/L (24-32); TOTAL PROTEIN 7.1 G/DL (6.4-8.2); eGFR 65 ML/MIN
[2019-04-25 02:29] VITALS: BP 134/79
== END 2019-04-25 02:32 | disposition home or self-care (01) ==
LOC: ER 00:20
DX: R00.2 Palpitations (principal); I25.10 Atherosclerotic heart disease of native coronary artery without angina pectoris; I11.0 Hypertensive heart disease with heart failure; I50.9 Heart failure, unspecified; E78.00 Pure hypercholesterolemia, unspecified; I25.2 Old myocardial infarction; K21.9 Gastro-esophageal reflux disease without esophagitis; Z95.5 Presence of coronary angioplasty implant and graft; Z98.890 Other specified postprocedural states; Z79.82 Long term (current) use of aspirin; Z79.899 Other long term (current) drug therapy; Z88.8 Allergy status to other drugs, medicaments and biological substances
CPT/HCPCS: 36415; 71045; 80053; 84484; 85025; 93005; 99284

== ENCOUNTER 2019-07-03 00:49 | Emergency (ER) | payer MEDICARE, MEDICAID ==
[~2019-07-03] VITALS: Ht 177.8 cm; Wt 91.4 kg
[2019-07-03 00:52] VITALS: BP 128/84
[2019-07-03] MEDS ORDERED: CLOT15CR5 TOP (02:13)
[2019-07-05] MEDS ORDERED: FAMO20TA8 PO (18:59)
[2019-07-05] MEDS ORDERED: CLOT30CR TOP (19:00)
[2019-07-06] MEDS ORDERED: APIX5TAB3 PO (10:39)
[2019-07-06] MEDS ORDERED: AMIO200T61 PO (10:39)
== END 2019-07-03 02:33 | disposition home or self-care (01) ==
LOC: ER 00:50
DX: N48.1 Balanitis (principal); I25.10 Atherosclerotic heart disease of native coronary artery without angina pectoris; I11.0 Hypertensive heart disease with heart failure; I50.9 Heart failure, unspecified; E78.00 Pure hypercholesterolemia, unspecified; I25.2 Old myocardial infarction; K21.9 Gastro-esophageal reflux disease without esophagitis; Z95.5 Presence of coronary angioplasty implant and graft; Z98.890 Other specified postprocedural states; Z88.8 Allergy status to other drugs, medicaments and biological substances; Z79.82 Long term (current) use of aspirin; Z79.899 Other long term (current) drug therapy
CPT/HCPCS: 99282; 99283

== ENCOUNTER 2019-07-09 22:02 | Emergency (ER) | payer MEDICARE, MEDICAID ==
[~2019-07-09] VITALS: Ht 177.8 cm; Wt 90.0 kg
[~2019-07-09 22:02] MED LIST changes: +AMIO200T61 PO; +APIX5TAB3 PO; +CLOT30CR TOP; -FAMO-128 PO
[2019-07-09] MEDS ORDERED: fluconazole 150mg tablet PO ONE (23:35)
[2019-07-10 00:03] LABS: CLARITY,URINE CLEAR (Clear); COLOR,URINE YELLOW (Yellow); GLUCOSE, URINE NEGATIVE (Neg); KETONES,URINE NEGATIVE (Neg); LEUKOCYTE ESTERASE ,URINE NEGATIVE (Neg); NITRITES, URINE NEGATIVE (Neg); OCCULT BLOOD,URINE TRACE-INTACT (Neg); PROTEIN,URINE NEGATIVE (Neg); UROBILINOGEN,URINE 0.2 E.U/dL (0.2-1.0)
[2019-07-10 00:10] LABS: UA COLLECTION TYPE CLN CATCH MIDSTREAM
[2019-07-10] MEDS ORDERED: MYC15CR TOP (00:10)
[2019-07-10 00:11] LABS: BACTERIA,URINE NONE SEEN /HPF (Neg); RBC,URINE 0-2 /HPF (0-2); SQUAMOUS EPITHELIAL CELL,UR FEW /LPF (FEW); WBC,URINE NONE SEEN /HPF (0-4)
[2019-07-10 00:14] VITALS: BP 109/61
== END 2019-07-10 00:16 | disposition home or self-care (01) ==
LOC: ER 22:03
DX: N48.1 Balanitis (principal); I25.10 Atherosclerotic heart disease of native coronary artery without angina pectoris; I11.0 Hypertensive heart disease with heart failure; I50.9 Heart failure, unspecified; E78.00 Pure hypercholesterolemia, unspecified; I25.2 Old myocardial infarction; K21.9 Gastro-esophageal reflux disease without esophagitis; Z98.61 Coronary angioplasty status; Z98.890 Other specified postprocedural states; Z88.8 Allergy status to other drugs, medicaments and biological substances; Z79.82 Long term (current) use of aspirin; Z79.899 Other long term (current) drug therapy
CPT/HCPCS: 81001; 81003; 99283

== ENCOUNTER 2019-07-15 00:33 | Emergency (ER) | payer MEDICARE, MEDICAID ==
[~2019-07-15] VITALS: Ht 177.8 cm; Wt 92.7 kg
[~2019-07-15 00:33] MED LIST changes: +MYC15CR TOP
[2019-07-15 01:14] LABS: BASOPHILS # (AUTO) 0.1 X10'3 (0-0.2); BASOPHILS % (AUTO) 0.8 % (0-1); EOSINOPHILS # (AUTO) 0.2 X10'3 (0-0.9); EOSINOPHILS % (AUTO) 3.1 % (0-6); HEMATOCRIT 40.6 % (42.0-52.0); HEMOGLOBIN 13.7 g/dl (14.0-17.9); LYMPHOCYTES # (AUTO) 2.3 X10'3 (1.1-4.8); LYMPHOCYTES % (AUTO) 30.1 % (21-51); MEAN CORPUSCULAR HEMOGLOBIN 30.7 PG (27.0-31.0); MEAN CORPUSCULAR HGB CONC 33.8 g/dL (33.0-36.5); MEAN PLATELET VOLUME 7.7 FL (7.4-10.4); MONOCYTES # (AUTO) 0.6 X10'3 (0-0.9); MONOCYTES % (AUTO) 7.3 % (2-12); NEUTROPHILS # (AUTO) 4.6 X10'3 (1.8-7.7); NEUTROPHILS % (AUTO) 58.7 % (42-75); PLATELET COUNT 191 X10'3 (140-440); RED BLOOD COUNT 4.46 X10'6 (4.70-6.10); RED CELL DISTRIBUTION WIDTH 13.4 % (11.5-14.5); WHITE BLOOD COUNT 7.8 X10'3 (4.5-11.0)
[2019-07-15 01:28] LABS: ALANINE AMINOTRANSFERASE 50 U/L (12-78); ALBUMIN 3.6 G/DL (3.4-5.0); ALBUMIN/GLOBULIN RATIO 1.1 (1.1-1.5); ALKALINE PHOSPHATASE 48 IU/L (46-116); ANION GAP 4 (8-16); ASPARTATE AMINO TRANSFERASE 25 U/L (10-37); BILIRUBIN,TOTAL 0.2 MG/DL (0.1-1.0); BLOOD UREA NITROGEN 20 MG/DL (7-18); BUN/CREATININE RATIO 17.2 (5.4-32.0); CALCIUM 8.2 MG/DL (8.5-10.1); CHLORIDE 108 MMOL/L (99-107); CREATININE 1.16 MG/DL (0.60-1.10); GLUCOSE 99 MG/DL (70-104); SODIUM 145 MMOL/L (135-145); eGFR 61 ML/MIN
--- NOTE | 2019-07-15 03:25 | NUR ---
pt states he has appointment with assembling machine operator on jul 26
[2019-07-15 04:16] VITALS: BP 123/57
== END 2019-07-15 04:20 | disposition home or self-care (01) ==
LOC: ER 00:34
DX: R07.89 Other chest pain (principal); I25.10 Atherosclerotic heart disease of native coronary artery without angina pectoris; I11.0 Hypertensive heart disease with heart failure; I50.9 Heart failure, unspecified; I25.2 Old myocardial infarction; K21.9 Gastro-esophageal reflux disease without esophagitis; Z98.61 Coronary angioplasty status; Z98.890 Other specified postprocedural states; Z88.8 Allergy status to other drugs, medicaments and biological substances; Z79.82 Long term (current) use of aspirin; Z79.01 Long term (current) use of anticoagulants; Z79.899 Other long term (current) drug therapy
CPT/HCPCS: 36415; 71045; 80053; 84484; 85025; 93005; 99284

== ENCOUNTER 2019-07-19 07:20 | Emergency (ER) | payer MEDICARE, MEDICAID ==
[~2019-07-19] VITALS: Ht 177.8 cm; Wt 95.7 kg
[2019-07-19] MEDS ORDERED: ondansetron 4mg rapidly disintigrating tab PO ONE (07:45)
[2019-07-19] MEDS ORDERED: acetaminophen 325mg tablet PO ONE (07:45)
[2019-07-19 08:56] LABS: BASOPHILS # (AUTO) 0.1 X10'3 (0-0.2); BASOPHILS % (AUTO) 0.8 % (0-1); EOSINOPHILS # (AUTO) 0.3 X10'3 (0-0.9); EOSINOPHILS % (AUTO) 3.1 % (0-6); HEMATOCRIT 40.7 % (42.0-52.0); HEMOGLOBIN 13.8 g/dl (14.0-17.9); LYMPHOCYTES # (AUTO) 1.7 X10'3 (1.1-4.8); LYMPHOCYTES % (AUTO) 20.3 % (21-51); MEAN CORPUSCULAR HEMOGLOBIN 30.2 PG (27.0-31.0); MEAN CORPUSCULAR HGB CONC 33.8 g/dL (33.0-36.5); MEAN CORPUSCULAR VOLUME 89.3 FL (78-98); MEAN PLATELET VOLUME 7.6 FL (7.4-10.4); MONOCYTES # (AUTO) 0.7 X10'3 (0-0.9); MONOCYTES % (AUTO) 8.8 % (2-12); NEUTROPHILS # (AUTO) 5.6 X10'3 (1.8-7.7); PLATELET COUNT 172 X10'3 (140-440); RED BLOOD COUNT 4.56 X10'6 (4.70-6.10); RED CELL DISTRIBUTION WIDTH 13.4 % (11.5-14.5); WHITE BLOOD COUNT 8.3 X10'3 (4.5-11.0)
[2019-07-19 09:13] LABS: ALANINE AMINOTRANSFERASE 51 U/L (12-78); ALBUMIN 3.4 G/DL (3.4-5.0); ALBUMIN/GLOBULIN RATIO 1.1 (1.1-1.5); ALKALINE PHOSPHATASE 47 IU/L (46-116); ANION GAP 4 (8-16); ASPARTATE AMINO TRANSFERASE 31 U/L (10-37); BILIRUBIN,TOTAL 0.4 MG/DL (0.1-1.0); BLOOD UREA NITROGEN 13 MG/DL (7-18); BUN/CREATININE RATIO 13.8 (5.4-32.0); CALCIUM 8.3 MG/DL (8.5-10.1); CHLORIDE 108 MMOL/L (99-107); CREATININE 0.94 MG/DL (0.60-1.10); GLUCOSE 109 MG/DL (70-104); SODIUM 142 MMOL/L (135-145); TOTAL CARBON DIOXIDE 30.3 MMOL/L (24-32); TOTAL PROTEIN 6.5 G/DL (6.4-8.2); eGFR 78 ML/MIN
[2019-07-19 10:52] VITALS: BP 110/61
[2019-07-19] MEDS ORDERED: ALBU18HF2 INH (17:23)
[2019-07-19] MEDS ORDERED: BENZ-16 PO (17:23)
[2019-07-20] MEDS ORDERED: DOXY100C43 PO (22:38)
== END 2019-07-19 10:53 | disposition home or self-care (01) ==
LOC: ER 07:21
DX: J06.9 Acute upper respiratory infection, unspecified (principal); I25.10 Atherosclerotic heart disease of native coronary artery without angina pectoris; E78.00 Pure hypercholesterolemia, unspecified; I11.0 Hypertensive heart disease with heart failure; I50.9 Heart failure, unspecified; I25.2 Old myocardial infarction; K21.9 Gastro-esophageal reflux disease without esophagitis; Z98.61 Coronary angioplasty status; Z98.890 Other specified postprocedural states; Z88.8 Allergy status to other drugs, medicaments and biological substances; Z79.82 Long term (current) use of aspirin; Z79.899 Other long term (current) drug therapy
CPT/HCPCS: 36415; 71045; 80053; 84484; 85025; 87502; 87503; 93005; 99284

== ENCOUNTER 2019-07-19 14:20 | Emergency (ER) | payer MEDICARE, MEDICAID ==
[~2019-07-19] VITALS: Ht 177.8 cm; Wt 80.0 kg
[2019-07-19 14:28] VITALS: BP 136/70
[2019-07-19] MEDS ORDERED: albuterol 2.5 MG/3 ML nebule NEB ONE (16:20)
[2019-07-19 17:01] LABS: D-DIMER 0.34 MG/L FEU (0-0.50)
[2019-07-19] MEDS ORDERED: ALBU18HF2 INH (17:23)
[2019-07-19] MEDS ORDERED: BENZ-16 PO (17:23)
[2019-07-20] MEDS ORDERED: DOXY100C43 PO (22:38)
== END 2019-07-19 17:36 | disposition home or self-care (01) ==
LOC: ER 14:21
DX: R05 Cough (principal); R06.02 Shortness of breath; R09.3 Abnormal sputum; I25.10 Atherosclerotic heart disease of native coronary artery without angina pectoris; I11.0 Hypertensive heart disease with heart failure; I50.9 Heart failure, unspecified; E78.00 Pure hypercholesterolemia, unspecified; I25.2 Old myocardial infarction; K21.9 Gastro-esophageal reflux disease without esophagitis; Z98.890 Other specified postprocedural states; Z88.8 Allergy status to other drugs, medicaments and biological substances; Z79.82 Long term (current) use of aspirin; Z79.899 Other long term (current) drug therapy
CPT/HCPCS: 36415; 85379; 93005; 94640; 94760; 99284

== ENCOUNTER 2019-07-20 21:17 | Emergency (ER) | payer MEDICARE, MEDICAID ==
[~2019-07-20] VITALS: Ht 177.8 cm; Wt 93.1 kg
[~2019-07-20 21:17] MED LIST changes: +ALBU18HF2 INH; +BENZ-16 PO
[2019-07-20] MEDS ORDERED: DOXY100C43 PO (22:38)
[2019-07-20] MEDS ORDERED: DOXYCYCLINE 100MG CAPSULE PO STA (22:39)
[2019-07-20 22:55] VITALS: BP 157/83
== END 2019-07-20 22:57 | disposition home or self-care (01) ==
LOC: ER 21:17
DX: J20.9 Acute bronchitis, unspecified (principal); I25.10 Atherosclerotic heart disease of native coronary artery without angina pectoris; E78.00 Pure hypercholesterolemia, unspecified; I11.0 Hypertensive heart disease with heart failure; I50.9 Heart failure, unspecified; I25.2 Old myocardial infarction; K21.9 Gastro-esophageal reflux disease without esophagitis; Z98.61 Coronary angioplasty status; Z98.890 Other specified postprocedural states; Z88.8 Allergy status to other drugs, medicaments and biological substances; Z79.82 Long term (current) use of aspirin; Z79.899 Other long term (current) drug therapy; Z79.01 Long term (current) use of anticoagulants
CPT/HCPCS: 36415; 71046; 83880; 99284

== ENCOUNTER 2019-07-27 00:36 | Emergency (ER) | payer MEDICARE, MEDICAID ==
[~2019-07-27] VITALS: Ht 177.8 cm; Wt 94.1 kg
[~2019-07-27 00:36] MED LIST changes: +DOXY100C43 PO
[2019-07-27] MEDS ORDERED: benzonatate 100mg capsule PO ONE (01:45)
[2019-07-27] MEDS ORDERED: guaiFENesin/codeine phos 10ml UD oral syrup PO ONE (01:45)
[2019-07-27 02:07] LABS: BASOPHILS # (AUTO) 0.1 X10'3 (0-0.2); EOSINOPHILS # (AUTO) 0.3 X10'3 (0-0.9); EOSINOPHILS % (AUTO) 3.8 % (0-6); HEMATOCRIT 36.7 % (42.0-52.0); HEMOGLOBIN 12.5 g/dl (14.0-17.9); LYMPHOCYTES # (AUTO) 2.3 X10'3 (1.1-4.8); LYMPHOCYTES % (AUTO) 27.7 % (21-51); MEAN CORPUSCULAR HEMOGLOBIN 30.7 PG (27.0-31.0); MEAN CORPUSCULAR VOLUME 90.3 FL (78-98); MEAN PLATELET VOLUME 7.3 FL (7.4-10.4); MONOCYTES # (AUTO) 0.7 X10'3 (0-0.9); MONOCYTES % (AUTO) 8.3 % (2-12); NEUTROPHILS # (AUTO) 4.9 X10'3 (1.8-7.7); NEUTROPHILS % (AUTO) 59.2 % (42-75); PLATELET COUNT 192 X10'3 (140-440); RED BLOOD COUNT 4.07 X10'6 (4.70-6.10); RED CELL DISTRIBUTION WIDTH 13.8 % (11.5-14.5); WHITE BLOOD COUNT 8.3 X10'3 (4.5-11.0)
[2019-07-27 02:34] LABS: ALANINE AMINOTRANSFERASE 38 U/L (12-78); ALBUMIN 3.3 G/DL (3.4-5.0); ALKALINE PHOSPHATASE 38 IU/L (46-116); ANION GAP 9 (8-16); ASPARTATE AMINO TRANSFERASE 29 U/L (10-37); BILIRUBIN,TOTAL 0.4 MG/DL (0.1-1.0); BLOOD UREA NITROGEN 17 MG/DL (7-18); BUN/CREATININE RATIO 14.5 (5.4-32.0); CALCIUM 8.2 MG/DL (8.5-10.1); CHLORIDE 107 MMOL/L (99-107); CREATININE 1.17 MG/DL (0.60-1.10); GLUCOSE 98 MG/DL (70-104); POTASSIUM 3.8 MMOL/L (3.5-5.1); SODIUM 143 MMOL/L (135-145); TOTAL CARBON DIOXIDE 26.6 MMOL/L (24-32); TOTAL PROTEIN 6.6 G/DL (6.4-8.2); eGFR 60 ML/MIN
[2019-07-27] MEDS ORDERED: BENZ-16 PO (03:14)
[2019-07-27] MEDS ORDERED: CODE120S2 PO ×2 (03:14→03:17)
[2019-07-27 03:53] VITALS: BP 130/60
== END 2019-07-27 03:25 | disposition home or self-care (01) ==
LOC: ER 00:36
DX: R04.2 Hemoptysis (principal); K92.0 Hematemesis; I25.10 Atherosclerotic heart disease of native coronary artery without angina pectoris; I50.9 Heart failure, unspecified; E78.00 Pure hypercholesterolemia, unspecified; I11.0 Hypertensive heart disease with heart failure; I25.2 Old myocardial infarction; K21.9 Gastro-esophageal reflux disease without esophagitis; Z98.61 Coronary angioplasty status; Z98.890 Other specified postprocedural states; Z88.8 Allergy status to other drugs, medicaments and biological substances; Z79.01 Long term (current) use of anticoagulants; Z79.82 Long term (current) use of aspirin; Z79.899 Other long term (current) drug therapy
CPT/HCPCS: 36415; 71046; 80053; 85025; 85610; 99284

== ENCOUNTER 2019-09-16 13:57 | Emergency (ER) | payer MEDICARE, MEDICAID ==
[~2019-09-16] VITALS: Ht 177.8 cm; Wt 92.7 kg
[~2019-09-16 13:57] MED LIST changes: -BENZ-16 PO; -DOXY100C43 PO
[2019-09-16 14:02] VITALS: BP 140/75
[2019-09-17] MEDS ORDERED: LISI-604 PO (10:13)
== END 2019-09-16 14:26 | disposition home or self-care (01) ==
LOC: ER 13:58
DX: H92.02 Otalgia, left ear (principal); I11.0 Hypertensive heart disease with heart failure; I50.9 Heart failure, unspecified; I25.10 Atherosclerotic heart disease of native coronary artery without angina pectoris; E78.00 Pure hypercholesterolemia, unspecified; I25.2 Old myocardial infarction; K21.9 Gastro-esophageal reflux disease without esophagitis; Z95.5 Presence of coronary angioplasty implant and graft; Z98.890 Other specified postprocedural states; Z79.82 Long term (current) use of aspirin; Z88.4 Allergy status to anesthetic agent; Z79.899 Other long term (current) drug therapy
CPT/HCPCS: 99281

== ENCOUNTER 2019-09-17 05:40 | Inpatient (IN) | payer MEDICAID, MEDICARE, OTHER ==
[~2019-09-17] VITALS: Ht 177.8 cm; Wt 93.2 kg
[2019-09-17] MEDS ORDERED: CefTRIAXone/D5W-Rocephin 1gm 50 ML IV ONE (06:45)
[2019-09-17 08:09] LABS: BASOPHILS # (AUTO) 0.1 X10'3 (0-0.2); BASOPHILS % (AUTO) 0.6 % (0-1); EOSINOPHILS # (AUTO) 0.1 X10'3 (0-0.9); HEMATOCRIT 45.5 % (42.0-52.0); HEMOGLOBIN 15.1 g/dl (14.0-17.9); LYMPHOCYTES # (AUTO) 2.6 X10'3 (1.1-4.8); LYMPHOCYTES % (AUTO) 25.5 % (21-51); MEAN CORPUSCULAR HEMOGLOBIN 30.6 PG (27.0-31.0); MEAN CORPUSCULAR HGB CONC 33.2 g/dL (33.0-36.5); MEAN CORPUSCULAR VOLUME 92.1 FL (78-98); MEAN PLATELET VOLUME 7.9 FL (7.4-10.4); MONOCYTES # (AUTO) 0.7 X10'3 (0-0.9); MONOCYTES % (AUTO) 7.2 % (2-12); NEUTROPHILS # (AUTO) 6.7 X10'3 (1.8-7.7); NEUTROPHILS % (AUTO) 65.7 % (42-75); PLATELET COUNT 207 X10'3 (140-440); RED BLOOD COUNT 4.94 X10'6 (4.70-6.10); RED CELL DISTRIBUTION WIDTH 14.3 % (11.5-14.5); WHITE BLOOD COUNT 10.2 X10'3 (4.5-11.0)
[2019-09-17 08:26] LABS: ALANINE AMINOTRANSFERASE 38 U/L (12-78); ALBUMIN 3.9 G/DL (3.4-5.0); ALKALINE PHOSPHATASE 50 IU/L (46-116); ANION GAP 6 (8-16); ASPARTATE AMINO TRANSFERASE 24 U/L (10-37); BILIRUBIN,TOTAL 0.8 MG/DL (0.1-1.0); BLOOD UREA NITROGEN 16 MG/DL (7-18); BUN/CREATININE RATIO 14.8 (5.4-32.0); CALCIUM 8.8 MG/DL (8.5-10.1); CHLORIDE 107 MMOL/L (99-107); CREATININE 1.08 MG/DL (0.60-1.10); GLUCOSE 97 MG/DL (70-104); POTASSIUM 3.9 MMOL/L (3.5-5.1); SODIUM 140 MMOL/L (135-145); TOTAL CARBON DIOXIDE 27.4 MMOL/L (24-32); TOTAL PROTEIN 7.9 G/DL (6.4-8.2); eGFR 66 ML/MIN
[2019-09-17 08:27] LABS: C-REACTIVE PROTEIN 0.38 MG/DL (0.0-0.5); MAGNESIUM 2.4 MG/DL (1.5-2.4)
[2019-09-17] MEDS ORDERED: potassium CL 10mEq/100ml bag 100 ML IV PRN ×2 (09:40)
[2019-09-17] MEDS ORDERED: magnesium 4gm in 100ml NS 100 ML IV PRN (09:40)
[2019-09-17] MEDS ORDERED: acetaminophen 325mg tablet PO PRN ×2 (09:40)
[2019-09-17] MEDS ORDERED: morphine 2 MG/ML inj. syringe IV PRN (09:40)
[2019-09-17] MEDS ORDERED: ondansetron/PF 4mg/2ml inj IV PRN (09:40)
[2019-09-17] MEDS ORDERED: potassium Cl 20 mEq SR tablet PO PRN ×2 (09:40)
[2019-09-17] MEDS ORDERED: magnesium Cl slow-release 64mg tablet PO PRN (09:40)
[2019-09-17] MEDS ORDERED: HYDROcodone/acetaminophen 5mg/325mg tablet PO PRN (09:40)
[2019-09-17] MEDS ORDERED: magnesium 2GM in 50ml NS 50 ML IV PRN (09:40)
[2019-09-17] MEDS ORDERED: LISI-604 PO (10:13)
--- NOTE | 2019-09-17 10:24 | NUR ---
Patient in room ED 8. I have received report from Paulina and had the opportunity to ask questions and assume patient care.
[2019-09-17 11:19] VITALS: BP 129/76
[2019-09-17] MEDS ORDERED: albuterol 2.5 MG/3 ML nebule NEB PRN (12:00)
--- NOTE | 2019-09-17 14:45 | NUR ---
Goran 5199 Re: Chris Hogan Pt negative for COVID 19.
[2019-09-17 18:00] VITALS: BP 120/56
--- NOTE | 2019-09-17 18:06 | NUR ---
Problems reprioritized. Patient report given, questions answered & plan of care reviewed with Mahi TOMPKINS.
--- NOTE | 2019-09-17 18:07 | NUR ---
Patient in room ORTHO 4013. I have received report from LEDA Fox and had the opportunity to ask questions and assume patient care.
[2019-09-17] MEDS: K and/or MAG REPLACEMENT MC SCH (20:00)
[2019-09-17] MEDS: docusate sod 100mg capsule PO SCH (20:07)
[2019-09-17] MEDS: apixaban 5mg tablet PO SCH (20:07)
[2019-09-17] MEDS: heparin, porcine 5000 units/ml vial SQ SCH (20:11)
[2019-09-17] MEDS: NYSTATIN CREAM - 30GM TUBE TP SCH (20:16)
[2019-09-17] MEDS ORDERED: pravastatin 40mg tablet PO SCH (21:00)
[2019-09-17 21:09] LABS: CLARITY,URINE CLEAR (Clear); COLOR,URINE YELLOW (Yellow); GLUCOSE, URINE NEGATIVE (Neg); KETONES,URINE NEGATIVE (Neg); LEUKOCYTE ESTERASE ,URINE NEGATIVE (Neg); NITRITES, URINE NEGATIVE (Neg); OCCULT BLOOD,URINE SMALL (Neg); PROTEIN,URINE NEGATIVE (Neg); UROBILINOGEN,URINE 0.2 E.U/dL (0.2-1.0)
[2019-09-17 21:13] LABS: UA COLLECTION TYPE CLN CATCH MIDSTREAM
[2019-09-17 21:16] LABS: BACTERIA,URINE NONE SEEN /HPF (Neg); MUCUS STRANDS NONE SEEN /LPF (Neg); RBC,URINE 0-2 /HPF (0-2); SQUAMOUS EPITHELIAL CELL,UR FEW /LPF (FEW); WBC,URINE 0-4 /HPF (0-4)
[2019-09-17 22:00] VITALS: BP 116/75
[2019-09-18 05:34] LABS: BASOPHILS % (AUTO) 0.6 % (0-1); EOSINOPHILS # (AUTO) 0.2 X10'3 (0-0.9); EOSINOPHILS % (AUTO) 2.1 % (0-6); HEMATOCRIT 38.7 % (42.0-52.0); HEMOGLOBIN 13.1 g/dl (14.0-17.9); LYMPHOCYTES # (AUTO) 1.8 X10'3 (1.1-4.8); LYMPHOCYTES % (AUTO) 22.9 % (21-51); MEAN CORPUSCULAR VOLUME 91.3 FL (78-98); MEAN PLATELET VOLUME 7.8 FL (7.4-10.4); MONOCYTES # (AUTO) 0.7 X10'3 (0-0.9); MONOCYTES % (AUTO) 8.8 % (2-12); NEUTROPHILS # (AUTO) 5.2 X10'3 (1.8-7.7); NEUTROPHILS % (AUTO) 65.6 % (42-75); PLATELET COUNT 171 X10'3 (140-440); RED BLOOD COUNT 4.24 X10'6 (4.70-6.10); RED CELL DISTRIBUTION WIDTH 14.2 % (11.5-14.5); WHITE BLOOD COUNT 7.9 X10'3 (4.5-11.0)
[2019-09-18 05:49] LABS: ALANINE AMINOTRANSFERASE 23 U/L (12-78); ALBUMIN 3.2 G/DL (3.4-5.0); ALKALINE PHOSPHATASE 35 IU/L (46-116); ANION GAP 9 (8-16); ASPARTATE AMINO TRANSFERASE 25 U/L (10-37); BILIRUBIN,TOTAL 1.1 MG/DL (0.1-1.0); BLOOD UREA NITROGEN 13 MG/DL (7-18); BUN/CREATININE RATIO 13.1 (5.4-32.0); CALCIUM 8.3 MG/DL (8.5-10.1); CHLORIDE 108 MMOL/L (99-107); CREATININE 0.99 MG/DL (0.60-1.10); GLUCOSE 86 MG/DL (70-104); MAGNESIUM 2.2 MG/DL (1.5-2.4); POTASSIUM 3.7 MMOL/L (3.5-5.1); SODIUM 143 MMOL/L (135-145); TOTAL CARBON DIOXIDE 26.1 MMOL/L (24-32); TOTAL PROTEIN 6.4 G/DL (6.4-8.2); eGFR 73 ML/MIN
[2019-09-18 06:00] VITALS: BP 116/65
--- NOTE | 2019-09-18 06:21 | NUR ---
Problems reprioritized. Patient report given, questions answered & plan of care reviewed with LEDA Goldstien.
--- NOTE | 2019-09-18 06:30 | NUR ---
Patient in room ORTHO 4013. I have received report from LEDA Champagne and had the opportunity to ask questions and assume patient care.
[2019-09-18] MEDS ORDERED: lisinopril 5mg tablet PO SCH (08:00)
[2019-09-18] MEDS ORDERED: azithromycin/NS 500mg/250ml 250 ML IV SCH (08:00)
[2019-09-18] MEDS: K and/or MAG REPLACEMENT MC SCH (08:00)
[2019-09-18] MEDS ORDERED: aspirin 81mg tab.chew PO SCH (08:00)
[2019-09-18] MEDS ORDERED: amiodarone 200mg tablet PO SCH (08:00)
[2019-09-18] MEDS: NYSTATIN CREAM - 30GM TUBE TP SCH (08:00)
[2019-09-18] MEDS ORDERED: CefTRIAXone 2gm/D5W 50ml 50 ML IV SCH (08:00)
[2019-09-18] MEDS: docusate sod 100mg capsule PO SCH (09:04)
[2019-09-18] MEDS: apixaban 5mg tablet PO SCH (09:04)
[2019-09-18] MEDS: heparin, porcine 5000 units/ml vial SQ SCH (09:07)
[2019-09-18 10:00] VITALS: BP 116/65
[2019-09-18] MEDS ORDERED: FLU VACC QS2019-20 36MOS UP/PF 60 MCG/0.5 ML SYRINGE IMVAC ONE (10:00)
[2019-09-18] MEDS ORDERED: LEVO500T89 PO (10:45)
[2019-09-18] MEDS ORDERED: NEOM28OI32 TP (10:46)
--- NOTE | 2019-09-18 14:00 | NUR ---
Received discharge orders from Dr. Harman. IV LFA dc'd with cannula intact. No redness/swelling at IV site. Applied bandaid over insertion site. RX called to [facility] on [address] per pts request. Discharged via w/c to front lobby for pickup by private vehicle driven by pts brother.
[2019-09-18] MEDS ORDERED: lactobacillus rhamnosus 10,000 MMU CELLS/CAPSULE PO SCH (20:00)
== END 2019-09-18 14:14 | disposition home or self-care (01) | DRG 195 ==
LOC: ER 05:41 → ED HOLD 09:36 → UNDOADMIN 09:36 → ED HOLD 09:45 → ORTHO 4S 10:30 → ED HOLD 10:30 → ORTHO 4S 14:34
PROVIDERS: ADMIT Internal Medicine; ATTEND Internal Medicine
DX: J18.9 Pneumonia, unspecified organism (principal); E78.00 Pure hypercholesterolemia, unspecified; E78.5 Hyperlipidemia, unspecified; I11.0 Hypertensive heart disease with heart failure; I25.10 Atherosclerotic heart disease of native coronary artery without angina pectoris; I50.9 Heart failure, unspecified; N48.1 Balanitis; K21.9 Gastro-esophageal reflux disease without esophagitis; I25.2 Old myocardial infarction; Z28.21 Immunization not carried out because of patient refusal; Z03.818 Encounter for observation for suspected exposure to other biological agents ruled out; Z88.8 Allergy status to other drugs, medicaments and biological substances; Z80.0 Family history of malignant neoplasm of digestive organs
CPT/HCPCS: 36415; 71046; 80053; 81001; 83605; 83735; 85025; 86140; 87040; 87070; 87081; 87635; 96365; 99285; G0378; J0456; J0696; J1644

== ENCOUNTER 2019-09-24 07:32 | Emergency (ER) | payer MEDICARE, MEDICAID ==
[~2019-09-24] VITALS: Ht 177.8 cm; Wt 91.4 kg
[~2019-09-24 07:32] MED LIST changes: -CLOT30CR TOP; +LEVO500T89 PO; +LISI-604 PO; -MYC15CR TOP; +NEOM28OI32 TP; -OMEG1CAP13 PO; -OMEG1CAP2
[2019-09-24] MEDS ORDERED: MV-M1TAB19 PO (08:13)
[2019-09-24] MEDS ORDERED: OMEG-79 PO (08:13)
[2019-09-24] MEDS ORDERED: LISI40TA4 PO (08:13)
[2019-09-24] MEDS ORDERED: AMIO200T61 PO (08:13)
[2019-09-24] MEDS ORDERED: APIX5TAB3 PO (08:13)
[2019-09-24] MEDS ORDERED: PRAV40TA3 PO (08:13)
[2019-09-24] MEDS ORDERED: ASPI-1265 PO (08:13)
[2019-09-24] MEDS ORDERED: MYCOL30CR TP (08:13)
[2019-09-24] MEDS ORDERED: NITR0.4T51 SL (08:13)
[2019-09-24] MEDS ORDERED: MULT-1141 PO (08:13)
[2019-09-24 08:24] LABS: BASOPHILS # (AUTO) 0.1 X10'3 (0-0.2); BASOPHILS % (AUTO) 0.9 % (0-1); EOSINOPHILS # (AUTO) 0.2 X10'3 (0-0.9); EOSINOPHILS % (AUTO) 2.1 % (0-6); LYMPHOCYTES # (AUTO) 2.1 X10'3 (1.1-4.8); LYMPHOCYTES % (AUTO) 26.7 % (21-51); MEAN CORPUSCULAR HEMOGLOBIN 30.7 PG (27.0-31.0); MEAN CORPUSCULAR HGB CONC 33.3 g/dL (33.0-36.5); MEAN CORPUSCULAR VOLUME 92.1 FL (78-98); MEAN PLATELET VOLUME 7.7 FL (7.4-10.4); MONOCYTES # (AUTO) 0.5 X10'3 (0-0.9); MONOCYTES % (AUTO) 6.5 % (2-12); NEUTROPHILS % (AUTO) 63.8 % (42-75); PLATELET COUNT 194 X10'3 (140-440); RED BLOOD COUNT 4.56 X10'6 (4.70-6.10); WHITE BLOOD COUNT 7.8 X10'3 (4.5-11.0)
[2019-09-24 08:38] LABS: ALANINE AMINOTRANSFERASE 22 U/L (12-78); ALBUMIN 3.6 G/DL (3.4-5.0); ALKALINE PHOSPHATASE 41 IU/L (46-116); ANION GAP 5 (8-16); ASPARTATE AMINO TRANSFERASE 23 U/L (10-37); BILIRUBIN,TOTAL 0.7 MG/DL (0.1-1.0); BLOOD UREA NITROGEN 12 MG/DL (7-18); BUN/CREATININE RATIO 10.9 (5.4-32.0); CALCIUM 8.3 MG/DL (8.5-10.1); CHLORIDE 108 MMOL/L (99-107); GLUCOSE 91 MG/DL (70-104); POTASSIUM 3.9 MMOL/L (3.5-5.1); SODIUM 141 MMOL/L (135-145); TOTAL CARBON DIOXIDE 27.7 MMOL/L (24-32); TOTAL PROTEIN 7.1 G/DL (6.4-8.2); eGFR 65 ML/MIN
[2019-09-24 09:36] VITALS: BP 120/71
== END 2019-09-24 09:39 | disposition home or self-care (01) ==
LOC: ER 07:32
DX: R06.02 Shortness of breath (principal); R05 Cough; I25.10 Atherosclerotic heart disease of native coronary artery without angina pectoris; I11.0 Hypertensive heart disease with heart failure; I50.9 Heart failure, unspecified; E78.00 Pure hypercholesterolemia, unspecified; I25.2 Old myocardial infarction; K21.9 Gastro-esophageal reflux disease without esophagitis; Z98.61 Coronary angioplasty status; Z98.890 Other specified postprocedural states; Z88.8 Allergy status to other drugs, medicaments and biological substances; Z79.01 Long term (current) use of anticoagulants; Z79.82 Long term (current) use of aspirin; Z79.899 Other long term (current) drug therapy
CPT/HCPCS: 36415; 71045; 80053; 83880; 84484; 85025; 93005; 99285

== ENCOUNTER 2019-09-24 22:22 | Emergency (ER) | payer MEDICARE, MEDICAID ==
[~2019-09-24] VITALS: Ht 177.8 cm; Wt 95.0 kg
[~2019-09-24 22:22] MED LIST changes: +ASPI-1265 PO; +LISI40TA4 PO; +MV-M1TAB19 PO; +MYCOL30CR TP; +NITR0.4T51 SL; +OMEG-79 PO
[2019-09-24 23:00] LABS: BASOPHILS # (AUTO) 0.1 X10'3 (0-0.2); BASOPHILS % (AUTO) 0.9 % (0-1); EOSINOPHILS # (AUTO) 0.2 X10'3 (0-0.9); EOSINOPHILS % (AUTO) 2.2 % (0-6); HEMATOCRIT 40.3 % (42.0-52.0); HEMOGLOBIN 13.3 g/dl (14.0-17.9); LYMPHOCYTES # (AUTO) 3.1 X10'3 (1.1-4.8); MEAN CORPUSCULAR HEMOGLOBIN 30.8 PG (27.0-31.0); MEAN CORPUSCULAR VOLUME 93.3 FL (78-98); MEAN PLATELET VOLUME 7.9 FL (7.4-10.4); MONOCYTES % (AUTO) 9.4 % (2-12); NEUTROPHILS # (AUTO) 5.7 X10'3 (1.8-7.7); NEUTROPHILS % (AUTO) 56.5 % (42-75); PLATELET COUNT 187 X10'3 (140-440); RED BLOOD COUNT 4.32 X10'6 (4.70-6.10); RED CELL DISTRIBUTION WIDTH 14.2 % (11.5-14.5); WHITE BLOOD COUNT 10.1 X10'3 (4.5-11.0)
[2019-09-24 23:06] LABS: ALANINE AMINOTRANSFERASE 32 U/L (12-78); ALBUMIN 3.4 G/DL (3.4-5.0); ALKALINE PHOSPHATASE 40 IU/L (46-116); ANION GAP 8 (8-16); ASPARTATE AMINO TRANSFERASE 31 U/L (10-37); BILIRUBIN,TOTAL 0.4 MG/DL (0.1-1.0); BLOOD UREA NITROGEN 21 MG/DL (7-18); BUN/CREATININE RATIO 15.1 (5.4-32.0); CALCIUM 8.1 MG/DL (8.5-10.1); CHLORIDE 107 MMOL/L (99-107); CREATININE 1.39 MG/DL (0.60-1.10); GLUCOSE 111 MG/DL (70-104); SODIUM 141 MMOL/L (135-145); TOTAL CARBON DIOXIDE 26.2 MMOL/L (24-32); TOTAL PROTEIN 6.7 G/DL (6.4-8.2); eGFR 49 ML/MIN
[2019-09-25 02:37] VITALS: BP 120/68
== END 2019-09-25 02:39 | disposition home or self-care (01) ==
LOC: ER 22:23
DX: R07.9 Chest pain, unspecified (principal); R06.02 Shortness of breath; I25.10 Atherosclerotic heart disease of native coronary artery without angina pectoris; I50.9 Heart failure, unspecified; I10 Essential (primary) hypertension; I25.2 Old myocardial infarction; K21.9 Gastro-esophageal reflux disease without esophagitis; E78.00 Pure hypercholesterolemia, unspecified; Z98.890 Other specified postprocedural states; Z88.8 Allergy status to other drugs, medicaments and biological substances; Z79.82 Long term (current) use of aspirin; Z79.899 Other long term (current) drug therapy
CPT/HCPCS: 36415; 71045; 80053; 83605; 83880; 84145; 84484; 85025; 87040; 93005; 99285

== ENCOUNTER 2019-10-15 14:16 | Emergency (ER) | payer MEDICARE, MEDICAID ==
[~2019-10-15] VITALS: Ht 177.8 cm; Wt 205.0 kg
[~2019-10-15 14:16] MED LIST changes: -ALBU18HF2 INH; -ASPI-611 PO; -CHOL10002 PO; -LEVO500T89 PO; -LISI40TA4 PO; -NEOM28OI32 TP; -NITR0.4T SL
[2019-10-15 14:30] VITALS: BP 137/111
== END 2019-10-15 15:07 | disposition home or self-care (01) ==
LOC: ER 14:16
DX: T85.848A Pain due to other internal prosthetic devices, implants and grafts, initial encounter (principal); R22.2 Localized swelling, mass and lump, trunk; I25.10 Atherosclerotic heart disease of native coronary artery without angina pectoris; I50.9 Heart failure, unspecified; E78.00 Pure hypercholesterolemia, unspecified; I11.0 Hypertensive heart disease with heart failure; I25.2 Old myocardial infarction; K21.9 Gastro-esophageal reflux disease without esophagitis; Z98.61 Coronary angioplasty status; Z98.890 Other specified postprocedural states; Z88.8 Allergy status to other drugs, medicaments and biological substances; Z79.01 Long term (current) use of anticoagulants; Z79.82 Long term (current) use of aspirin; Z79.899 Other long term (current) drug therapy; Y83.9 Surgical procedure, unspecified as the cause of abnormal reaction of the patient, or of later complication, without mention of misadventure at the time of the procedure; Y92.89 Other specified places as the place of occurrence of the external cause
CPT/HCPCS: 99281

== ENCOUNTER 2019-10-16 06:00 | Emergency (ER) | payer MEDICARE, MEDICAID ==
[~2019-10-16] VITALS: Ht 177.8 cm; Wt 93.2 kg
[2019-10-16 07:11] LABS: BASOPHILS # (AUTO) 0.1 X10'3 (0-0.2); BASOPHILS % (AUTO) 0.8 % (0-1); EOSINOPHILS # (AUTO) 0.3 X10'3 (0-0.9); EOSINOPHILS % (AUTO) 3.4 % (0-6); LYMPHOCYTES % (AUTO) 24.8 % (21-51); MEAN CORPUSCULAR HEMOGLOBIN 30.6 PG (27.0-31.0); MEAN CORPUSCULAR HGB CONC 33.3 g/dL (33.0-36.5); MEAN CORPUSCULAR VOLUME 91.8 FL (78-98); MEAN PLATELET VOLUME 7.7 FL (7.4-10.4); MONOCYTES # (AUTO) 0.6 X10'3 (0-0.9); PLATELET COUNT 183 X10'3 (140-440); RED BLOOD COUNT 4.25 X10'6 (4.70-6.10); RED CELL DISTRIBUTION WIDTH 13.9 % (11.5-14.5)
[2019-10-16 08:08] VITALS: BP 123/71
== END 2019-10-16 08:56 | disposition home or self-care (01) ==
LOC: ER 06:01
DX: T82.847A Pain due to cardiac prosthetic devices, implants and grafts, initial encounter (principal); R22.2 Localized swelling, mass and lump, trunk; I25.10 Atherosclerotic heart disease of native coronary artery without angina pectoris; I50.9 Heart failure, unspecified; E78.00 Pure hypercholesterolemia, unspecified; I11.0 Hypertensive heart disease with heart failure; I25.2 Old myocardial infarction; K21.9 Gastro-esophageal reflux disease without esophagitis; Z98.61 Coronary angioplasty status; Z95.0 Presence of cardiac pacemaker; Z98.890 Other specified postprocedural states; Z88.8 Allergy status to other drugs, medicaments and biological substances; Z79.01 Long term (current) use of anticoagulants; Z79.82 Long term (current) use of aspirin; Z79.899 Other long term (current) drug therapy; Y83.8 Other surgical procedures as the cause of abnormal reaction of the patient, or of later complication, without mention of misadventure at the time of the procedure; Y92.89 Other specified places as the place of occurrence of the external cause
CPT/HCPCS: 36415; 84145; 85025; 99283

== ENCOUNTER 2019-12-16 20:07 | Emergency (ER) | payer MEDICARE, MEDICAID ==
[~2019-12-16] VITALS: Ht 177.8 cm; Wt 93.2 kg
[~2019-12-16 20:07] MED LIST changes: +ALBU8.5H8 INH; +CHOL200013 PO; +CLOT12CR TOP; +FURO-150 PO; -MV-M1TAB19 PO; -MYCOL30CR TP; +NYST30CR2 TP; +POTA20TA19 PO
--- NOTE | 2019-12-16 20:19 | NUR ---
took him to xray after triage.
[2019-12-16] MEDS ORDERED: ALBU18HF2 INH (21:02)
[2019-12-16] MEDS ORDERED: METO5TAB7 PO (21:02)
[2019-12-16] MEDS ORDERED: POTA10TA10 PO (21:02)
[2019-12-16] MEDS ORDERED: FURO20TA4 PO (21:02)
[2019-12-16 21:05] LABS: ALANINE AMINOTRANSFERASE 45 U/L (12-78); ALBUMIN 3.6 G/DL (3.4-5.0); ALKALINE PHOSPHATASE 48 IU/L (46-116); ANION GAP 6 (8-16); ASPARTATE AMINO TRANSFERASE 31 U/L (10-37); BILIRUBIN,TOTAL 0.6 MG/DL (0.1-1.0); BLOOD UREA NITROGEN 18 MG/DL (7-18); BUN/CREATININE RATIO 13.5 (5.4-32.0); CALCIUM 8.4 MG/DL (8.5-10.1); CHLORIDE 104 MMOL/L (99-107); CREATININE 1.33 MG/DL (0.60-1.10); GLUCOSE 94 MG/DL (70-104); POTASSIUM 4.2 MMOL/L (3.5-5.1); SODIUM 139 MMOL/L (135-145); TOTAL CARBON DIOXIDE 29.3 MMOL/L (24-32); TOTAL PROTEIN 7.3 G/DL (6.4-8.2); eGFR 52 ML/MIN
[2019-12-16 21:09] LABS: BASOPHILS # (AUTO) 0.1 X10'3 (0-0.2); BASOPHILS % (AUTO) 0.9 % (0-1); EOSINOPHILS # (AUTO) 0.3 X10'3 (0-0.9); EOSINOPHILS % (AUTO) 2.9 % (0-6); HEMATOCRIT 41.8 % (42.0-52.0); HEMOGLOBIN 13.9 g/dl (14.0-17.9); LYMPHOCYTES % (AUTO) 34.3 % (21-51); MEAN CORPUSCULAR HGB CONC 33.2 g/dL (33.0-36.5); MEAN CORPUSCULAR VOLUME 90.5 FL (78-98); MEAN PLATELET VOLUME 7.4 FL (7.4-10.4); MONOCYTES # (AUTO) 0.7 X10'3 (0-0.9); MONOCYTES % (AUTO) 7.9 % (2-12); NEUTROPHILS # (AUTO) 4.8 X10'3 (1.8-7.7); PLATELET COUNT 217 X10'3 (140-440); RED BLOOD COUNT 4.62 X10'6 (4.70-6.10); RED CELL DISTRIBUTION WIDTH 13.9 % (11.5-14.5); WHITE BLOOD COUNT 8.8 X10'3 (4.5-11.0)
[2019-12-16 21:46] VITALS: BP 128/74
[2019-12-16] MEDS ORDERED: AMOX500C2 PO (21:58)
[2019-12-16] MEDS ORDERED: BENZ-16 PO (21:58)
== END 2019-12-16 22:05 | disposition home or self-care (01) ==
LOC: ER 20:21
DX: R05 Cough (principal); R51 Headache; R53.83 Other fatigue; I25.10 Atherosclerotic heart disease of native coronary artery without angina pectoris; I50.9 Heart failure, unspecified; E78.00 Pure hypercholesterolemia, unspecified; I11.0 Hypertensive heart disease with heart failure; I25.2 Old myocardial infarction; K21.9 Gastro-esophageal reflux disease without esophagitis; Z98.61 Coronary angioplasty status; Z95.0 Presence of cardiac pacemaker; Z98.890 Other specified postprocedural states; Z88.8 Allergy status to other drugs, medicaments and biological substances; Z79.82 Long term (current) use of aspirin; Z79.01 Long term (current) use of anticoagulants; Z79.899 Other long term (current) drug therapy
CPT/HCPCS: 36415; 71045; 80053; 84484; 85025; 93005; 99285

== ENCOUNTER 2019-12-21 14:49 | Emergency (ER) | payer MEDICARE, MEDICAID ==
[~2019-12-21] VITALS: Ht 177.8 cm; Wt 93.0 kg
[~2019-12-21 14:49] MED LIST changes: +ALBU18HF2 INH; -ALBU8.5H8 INH; +AMOX500C2 PO; +BENZ-16 PO; -CLOT12CR TOP; -FURO-150 PO; +FURO20TA4 PO; -LISI-604 PO; +METO5TAB7 PO; -NYST30CR2 TP; +POTA10TA10 PO; -POTA20TA19 PO
[2019-12-21 15:51] LABS: BASOPHILS % (AUTO) 0.7 % (0-1); EOSINOPHILS # (AUTO) 0.1 X10'3 (0-0.9); EOSINOPHILS % (AUTO) 1.7 % (0-6); HEMATOCRIT 40.4 % (42.0-52.0); HEMOGLOBIN 13.5 g/dl (14.0-17.9); LYMPHOCYTES # (AUTO) 2.2 X10'3 (1.1-4.8); MEAN CORPUSCULAR HEMOGLOBIN 30.1 PG (27.0-31.0); MEAN CORPUSCULAR HGB CONC 33.3 g/dL (33.0-36.5); MEAN CORPUSCULAR VOLUME 90.4 FL (78-98); MEAN PLATELET VOLUME 7.5 FL (7.4-10.4); MONOCYTES # (AUTO) 0.6 X10'3 (0-0.9); MONOCYTES % (AUTO) 8.4 % (2-12); NEUTROPHILS # (AUTO) 4.3 X10'3 (1.8-7.7); NEUTROPHILS % (AUTO) 59.2 % (42-75); PLATELET COUNT 179 X10'3 (140-440); RED BLOOD COUNT 4.47 X10'6 (4.70-6.10); RED CELL DISTRIBUTION WIDTH 13.8 % (11.5-14.5); WHITE BLOOD COUNT 7.3 X10'3 (4.5-11.0)
[2019-12-21 16:03] LABS: ALANINE AMINOTRANSFERASE 37 U/L (12-78); ALBUMIN 3.4 G/DL (3.4-5.0); ALBUMIN/GLOBULIN RATIO 0.9 (1.1-1.5); ALKALINE PHOSPHATASE 43 IU/L (46-116); ANION GAP 9 (8-16); ASPARTATE AMINO TRANSFERASE 27 U/L (10-37); BILIRUBIN,TOTAL 0.4 MG/DL (0.1-1.0); BLOOD UREA NITROGEN 13 MG/DL (7-18); BUN/CREATININE RATIO 9.6 (5.4-32.0); CALCIUM 8.3 MG/DL (8.5-10.1); CHLORIDE 103 MMOL/L (99-107); CREATININE 1.35 MG/DL (0.60-1.10); GLUCOSE 96 MG/DL (70-104); SODIUM 138 MMOL/L (135-145); TOTAL CARBON DIOXIDE 25.9 MMOL/L (24-32); eGFR 51 ML/MIN
--- NOTE | 2019-12-21 17:04 | NUR ---
pt is 79 yo male c/o SOB x1 day, was seen by his home health nurse yesterday "everything was fine" , c/o generalized weakness, "listless", pt is GCS 15, alert and oriented, resp even and unlabored, skin p/w/d, waiting to be evaluated by provider
[2019-12-21] MEDS ORDERED: iohexol 350MG/ML 100ml bottle IV ONE (17:45)
[2019-12-21] MEDS ORDERED: triamcinolone acetonide 40mg/ml inj IM ONE (19:20)
[2019-12-21] MEDS ORDERED: dexamethasone 4mg tablet PO ONE (19:20)
[2019-12-21 19:49] VITALS: BP 137/80
== END 2019-12-21 19:37 | disposition home or self-care (01) ==
LOC: ER 14:50
DX: R06.02 Shortness of breath (principal); I25.10 Atherosclerotic heart disease of native coronary artery without angina pectoris; I11.0 Hypertensive heart disease with heart failure; I50.9 Heart failure, unspecified; E78.00 Pure hypercholesterolemia, unspecified; I25.2 Old myocardial infarction; K21.9 Gastro-esophageal reflux disease without esophagitis; Z95.0 Presence of cardiac pacemaker; Z98.890 Other specified postprocedural states; Z88.8 Allergy status to other drugs, medicaments and biological substances; Z79.2 Long term (current) use of antibiotics; Z79.82 Long term (current) use of aspirin; Z79.899 Other long term (current) drug therapy
CPT/HCPCS: 36415; 71045; 71275; 80053; 83880; 84484; 85025; 93005; 96372; 99285; J3301; Q9967

== ENCOUNTER 2019-12-24 10:36 | Emergency (ER) | payer MEDICARE, MEDICAID ==
[~2019-12-24] VITALS: Ht 177.8 cm; Wt 91.0 kg
[2019-12-24 12:38] LABS: BASOPHILS # (AUTO) 0.1 X10'3 (0-0.2); BASOPHILS % (AUTO) 0.6 % (0-1); EOSINOPHILS # (AUTO) 0.1 X10'3 (0-0.9); HEMATOCRIT 40.1 % (42.0-52.0); HEMOGLOBIN 13.4 g/dl (14.0-17.9); LYMPHOCYTES % (AUTO) 24.2 % (21-51); MEAN CORPUSCULAR HEMOGLOBIN 30.3 PG (27.0-31.0); MEAN CORPUSCULAR HGB CONC 33.4 g/dL (33.0-36.5); MEAN CORPUSCULAR VOLUME 90.8 FL (78-98); MEAN PLATELET VOLUME 7.3 FL (7.4-10.4); MONOCYTES # (AUTO) 0.9 X10'3 (0-0.9); MONOCYTES % (AUTO) 10.3 % (2-12); NEUTROPHILS # (AUTO) 5.4 X10'3 (1.8-7.7); NEUTROPHILS % (AUTO) 63.9 % (42-75); PLATELET COUNT 173 X10'3 (140-440); RED BLOOD COUNT 4.42 X10'6 (4.70-6.10); WHITE BLOOD COUNT 8.5 X10'3 (4.5-11.0)
[2019-12-24 12:50] LABS: ALANINE AMINOTRANSFERASE 39 U/L (12-78); ALBUMIN 3.3 G/DL (3.4-5.0); ALKALINE PHOSPHATASE 39 IU/L (46-116); ANION GAP 8 (8-16); ASPARTATE AMINO TRANSFERASE 25 U/L (10-37); BILIRUBIN,TOTAL 0.4 MG/DL (0.1-1.0); BLOOD UREA NITROGEN 13 MG/DL (7-18); BUN/CREATININE RATIO 10.2 (5.4-32.0); CALCIUM 8.4 MG/DL (8.5-10.1); CHLORIDE 104 MMOL/L (99-107); CREATININE 1.28 MG/DL (0.60-1.10); GLUCOSE 82 MG/DL (70-104); POTASSIUM 3.8 MMOL/L (3.5-5.1); SODIUM 140 MMOL/L (135-145); TOTAL CARBON DIOXIDE 28.3 MMOL/L (24-32); TOTAL PROTEIN 6.7 G/DL (6.4-8.2); eGFR 54 ML/MIN
[2019-12-24] MEDS ORDERED: PRED20TA PO (13:17)
[2019-12-24 13:28] VITALS: BP 122/57
== END 2019-12-24 13:34 | disposition home or self-care (01) ==
LOC: ER 10:37
DX: R06.02 Shortness of breath (principal); I25.10 Atherosclerotic heart disease of native coronary artery without angina pectoris; E78.00 Pure hypercholesterolemia, unspecified; I50.9 Heart failure, unspecified; I11.0 Hypertensive heart disease with heart failure; K21.9 Gastro-esophageal reflux disease without esophagitis; I25.2 Old myocardial infarction; Z95.0 Presence of cardiac pacemaker; Z98.61 Coronary angioplasty status; Z98.890 Other specified postprocedural states; Z88.8 Allergy status to other drugs, medicaments and biological substances; Z79.01 Long term (current) use of anticoagulants; Z79.899 Other long term (current) drug therapy
CPT/HCPCS: 36415; 71045; 80053; 83880; 84484; 85025; 93005; 99285

== ENCOUNTER 2020-01-05 16:20 | Emergency (ER) | payer MEDICARE, MEDICAID ==
[~2020-01-05] VITALS: Ht 177.8 cm; Wt 94.5 kg
[~2020-01-05 16:20] MED LIST changes: -AMOX500C2 PO; +PRED20TA PO
[2020-01-05 16:54] LABS: BASOPHILS # (AUTO) 0.1 X10'3 (0-0.2); BASOPHILS % (AUTO) 0.8 % (0-1); EOSINOPHILS # (AUTO) 0.1 X10'3 (0-0.9); EOSINOPHILS % (AUTO) 1.3 % (0-6); HEMATOCRIT 39.2 % (42.0-52.0); HEMOGLOBIN 13.1 g/dl (14.0-17.9); LYMPHOCYTES # (AUTO) 2.7 X10'3 (1.1-4.8); LYMPHOCYTES % (AUTO) 27.3 % (21-51); MEAN CORPUSCULAR HEMOGLOBIN 30.8 PG (27.0-31.0); MEAN CORPUSCULAR HGB CONC 33.3 g/dL (33.0-36.5); MEAN CORPUSCULAR VOLUME 92.3 FL (78-98); MEAN PLATELET VOLUME 7.4 FL (7.4-10.4); MONOCYTES # (AUTO) 0.9 X10'3 (0-0.9); MONOCYTES % (AUTO) 8.5 % (2-12); NEUTROPHILS # (AUTO) 6.2 X10'3 (1.8-7.7); NEUTROPHILS % (AUTO) 62.1 % (42-75); PLATELET COUNT 177 X10'3 (140-440); RED BLOOD COUNT 4.25 X10'6 (4.70-6.10); RED CELL DISTRIBUTION WIDTH 14.2 % (11.5-14.5)
[2020-01-05] MEDS ORDERED: nitroGLYCERIN 0.4mg/hour patch TD ONE (17:00)
[2020-01-05 17:03] LABS: ALANINE AMINOTRANSFERASE 46 U/L (12-78); ALBUMIN 3.1 G/DL (3.4-5.0); ALBUMIN/GLOBULIN RATIO 0.9 (1.1-1.5); ALKALINE PHOSPHATASE 35 IU/L (46-116); ANION GAP 6 (8-16); ASPARTATE AMINO TRANSFERASE 26 U/L (10-37); BILIRUBIN,TOTAL 0.2 MG/DL (0.1-1.0); BLOOD UREA NITROGEN 18 MG/DL (7-18); BUN/CREATININE RATIO 11.8 (5.4-32.0); CALCIUM 8.5 MG/DL (8.5-10.1); CHLORIDE 104 MMOL/L (99-107); CREATININE 1.52 MG/DL (0.60-1.10); GLUCOSE 108 MG/DL (70-104); POTASSIUM 4.1 MMOL/L (3.5-5.1); SODIUM 138 MMOL/L (135-145); TOTAL CARBON DIOXIDE 28.1 MMOL/L (24-32); TOTAL PROTEIN 6.6 G/DL (6.4-8.2); eGFR 45 ML/MIN
[2020-01-05] MEDS ORDERED: furosemide 10 MG/1 ML 10ml inj IV ONE (17:05)
[2020-01-05 18:49] VITALS: BP 103/72
== END 2020-01-05 18:47 | disposition home or self-care (01) ==
LOC: ER 16:21
DX: I11.0 Hypertensive heart disease with heart failure (principal); R06.00 Dyspnea, unspecified; I50.9 Heart failure, unspecified; I25.10 Atherosclerotic heart disease of native coronary artery without angina pectoris; E78.00 Pure hypercholesterolemia, unspecified; I25.2 Old myocardial infarction; K21.9 Gastro-esophageal reflux disease without esophagitis; Z98.61 Coronary angioplasty status; Z95.0 Presence of cardiac pacemaker; Z98.890 Other specified postprocedural states; Z88.8 Allergy status to other drugs, medicaments and biological substances; Z79.01 Long term (current) use of anticoagulants; Z79.82 Long term (current) use of aspirin; Z79.899 Other long term (current) drug therapy
CPT/HCPCS: 36415; 71045; 80053; 83880; 84484; 85025; 93005; 96374; 99285; J1940

== ENCOUNTER 2020-01-23 15:35 | Emergency (ER) | payer MEDICARE, MEDICAID ==
[~2020-01-23] VITALS: Ht 177.8 cm; Wt 94.5 kg
[~2020-01-23 15:35] MED LIST changes: -BENZ-16 PO
[2020-01-23] MEDS ORDERED: aspirin 81mg tab.chew PO ONE (15:40)
[2020-01-23 16:05] LABS: BASOPHILS # (AUTO) 0.1 X10'3 (0-0.2); BASOPHILS % (AUTO) 0.8 % (0-1); EOSINOPHILS # (AUTO) 0.2 X10'3 (0-0.9); EOSINOPHILS % (AUTO) 2.5 % (0-6); HEMATOCRIT 40.2 % (42.0-52.0); HEMOGLOBIN 13.4 g/dl (14.0-17.9); LYMPHOCYTES # (AUTO) 1.8 X10'3 (1.1-4.8); LYMPHOCYTES % (AUTO) 25.7 % (21-51); MEAN CORPUSCULAR HEMOGLOBIN 30.3 PG (27.0-31.0); MEAN CORPUSCULAR HGB CONC 33.4 g/dL (33.0-36.5); MEAN CORPUSCULAR VOLUME 90.9 FL (78-98); MEAN PLATELET VOLUME 7.1 FL (7.4-10.4); MONOCYTES # (AUTO) 0.6 X10'3 (0-0.9); MONOCYTES % (AUTO) 8.4 % (2-12); NEUTROPHILS # (AUTO) 4.5 X10'3 (1.8-7.7); NEUTROPHILS % (AUTO) 62.6 % (42-75); PLATELET COUNT 199 X10'3 (140-440); RED BLOOD COUNT 4.42 X10'6 (4.70-6.10); RED CELL DISTRIBUTION WIDTH 14.7 % (11.5-14.5); WHITE BLOOD COUNT 7.2 X10'3 (4.5-11.0)
[2020-01-23 16:18] LABS: ALANINE AMINOTRANSFERASE 44 U/L (12-78); ALBUMIN 3.3 G/DL (3.4-5.0); ALKALINE PHOSPHATASE 39 IU/L (46-116); ANION GAP 7 (8-16); ASPARTATE AMINO TRANSFERASE 25 U/L (10-37); BILIRUBIN,TOTAL 0.4 MG/DL (0.1-1.0); BLOOD UREA NITROGEN 15 MG/DL (7-18); BUN/CREATININE RATIO 10.8 (5.4-32.0); CALCIUM 8.2 MG/DL (8.5-10.1); CHLORIDE 104 MMOL/L (99-107); CREATININE 1.39 MG/DL (0.60-1.10); GLUCOSE 109 MG/DL (70-104); POTASSIUM 4.1 MMOL/L (3.5-5.1); SODIUM 137 MMOL/L (135-145); TOTAL CARBON DIOXIDE 26.4 MMOL/L (24-32); TOTAL PROTEIN 6.6 G/DL (6.4-8.2); eGFR 49 ML/MIN
[2020-01-23 16:23] LABS: MAGNESIUM 2.3 MG/DL (1.5-2.4)
--- NOTE | 2020-01-23 17:53 | NUR ---
PT IS RESTING QUIETLY ON GURNEY
--- NOTE | 2020-01-23 18:00 | NUR ---
pt is standing up at bedside without assist to use urinal
[2020-01-23 18:24] LABS: CLARITY,URINE SLIGHTLY CLOUDY (Clear); COLOR,URINE STRAW (Yellow); GLUCOSE, URINE NEGATIVE (Neg); KETONES,URINE NEGATIVE (Neg); LEUKOCYTE ESTERASE ,URINE NEGATIVE (Neg); NITRITES, URINE NEGATIVE (Neg); OCCULT BLOOD,URINE TRACE-LYSED (Neg); PROTEIN,URINE NEGATIVE (Neg); UROBILINOGEN,URINE 0.2 E.U/dL (0.2-1.0)
[2020-01-23 18:27] LABS: UA COLLECTION TYPE CLN CATCH MIDSTREAM
[2020-01-23 18:30] LABS: MUCUS STRANDS NONE SEEN /LPF (Neg); SQUAMOUS EPITHELIAL CELL,UR FEW /LPF (FEW)
[2020-01-23 18:32] LABS: BACTERIA,URINE NONE SEEN /HPF (Neg); RENAL CELLS, URINE FEW /HPF; WBC,URINE NONE SEEN /HPF (0-4)
[2020-01-23 19:13] VITALS: BP 134/75
== END 2020-01-23 19:15 | disposition home or self-care (01) ==
LOC: ER 15:36
DX: R42 Dizziness and giddiness (principal); I25.10 Atherosclerotic heart disease of native coronary artery without angina pectoris; I50.9 Heart failure, unspecified; E78.00 Pure hypercholesterolemia, unspecified; I11.0 Hypertensive heart disease with heart failure; I25.2 Old myocardial infarction; K21.9 Gastro-esophageal reflux disease without esophagitis; Z95.0 Presence of cardiac pacemaker; Z00.8 Encounter for other general examination; Z98.61 Coronary angioplasty status; Z98.890 Other specified postprocedural states; Z88.8 Allergy status to other drugs, medicaments and biological substances; Z79.01 Long term (current) use of anticoagulants; Z79.82 Long term (current) use of aspirin; Z79.899 Other long term (current) drug therapy
CPT/HCPCS: 36415; 70450; 71045; 80053; 81001; 83735; 83880; 84484; 85025; 93005; 99285

== ENCOUNTER 2020-01-26 17:29 | Emergency (ER) | payer MEDICARE, MEDICAID ==
[~2020-01-26] VITALS: Ht 177.8 cm; Wt 93.0 kg
[~2020-01-26 17:29] MED LIST changes: -PRED20TA PO
[2020-01-26 17:41] VITALS: BP 127/73
== END 2020-01-26 18:56 | disposition home or self-care (01) ==
LOC: ER 17:29
DX: T14.8XXA Other injury of unspecified body region, initial encounter (principal); I25.10 Atherosclerotic heart disease of native coronary artery without angina pectoris; I50.9 Heart failure, unspecified; E78.00 Pure hypercholesterolemia, unspecified; I11.0 Hypertensive heart disease with heart failure; I25.2 Old myocardial infarction; K21.9 Gastro-esophageal reflux disease without esophagitis; Z95.0 Presence of cardiac pacemaker; Z98.61 Coronary angioplasty status; Z98.890 Other specified postprocedural states; Z88.8 Allergy status to other drugs, medicaments and biological substances; Z79.01 Long term (current) use of anticoagulants; Z79.82 Long term (current) use of aspirin; Z79.899 Other long term (current) drug therapy
CPT/HCPCS: 99281

== ENCOUNTER 2020-04-21 04:56 | Emergency (ER) | payer MEDICARE, MEDICAID ==
[~2020-04-21] VITALS: Ht 177.8 cm; Wt 95.5 kg
[2020-04-21 05:49] LABS: BASOPHILS % (AUTO) 0.5 % (0-1); EOSINOPHILS # (AUTO) 0.1 X10'3 (0-0.9); EOSINOPHILS % (AUTO) 1.3 % (0-6); HEMATOCRIT 39.7 % (42.0-52.0); HEMOGLOBIN 13.2 g/dl (14.0-17.9); LYMPHOCYTES # (AUTO) 1.6 X10'3 (1.1-4.8); LYMPHOCYTES % (AUTO) 16.9 % (21-51); MEAN CORPUSCULAR HGB CONC 33.2 g/dL (33.0-36.5); MEAN CORPUSCULAR VOLUME 93.4 FL (78-98); MEAN PLATELET VOLUME 7.7 FL (7.4-10.4); MONOCYTES # (AUTO) 0.8 X10'3 (0-0.9); MONOCYTES % (AUTO) 7.9 % (2-12); NEUTROPHILS % (AUTO) 73.4 % (42-75); PLATELET COUNT 180 X10'3 (140-440); RED BLOOD COUNT 4.25 X10'6 (4.70-6.10); RED CELL DISTRIBUTION WIDTH 14.3 % (11.5-14.5); WHITE BLOOD COUNT 9.6 X10'3 (4.5-11.0)
[2020-04-21 05:58] LABS: ALANINE AMINOTRANSFERASE 54 U/L (12-78); ALBUMIN 3.5 G/DL (3.4-5.0); ALBUMIN/GLOBULIN RATIO 1.1 (1.1-1.5); ALKALINE PHOSPHATASE 48 IU/L (46-116); ANION GAP 7 (8-16); ASPARTATE AMINO TRANSFERASE 33 U/L (10-37); BILIRUBIN,TOTAL 0.4 MG/DL (0.1-1.0); BLOOD UREA NITROGEN 12 MG/DL (7-18); BUN/CREATININE RATIO 9.2 (5.4-32.0); CALCIUM 8.5 MG/DL (8.5-10.1); CHLORIDE 107 MMOL/L (99-107); GLUCOSE 90 MG/DL (70-104); POTASSIUM 3.6 MMOL/L (3.5-5.1); SODIUM 142 MMOL/L (135-145); TOTAL PROTEIN 6.8 G/DL (6.4-8.2); eGFR 53 ML/MIN
[2020-04-21] MEDS ORDERED: furosemide 10 MG/1 ML 10ml inj IV ONE (06:15)
[2020-04-21 06:40] VITALS: BP 117/63
[2020-04-23] MEDS ORDERED: MYC15CR TP (13:07)
[2020-04-23] MEDS ORDERED: LISI-604 PO (13:07)
== END 2020-04-21 06:43 | disposition home or self-care (01) ==
LOC: ER 04:57
DX: I11.0 Hypertensive heart disease with heart failure (principal); I50.9 Heart failure, unspecified; R06.02 Shortness of breath; I25.10 Atherosclerotic heart disease of native coronary artery without angina pectoris; E78.00 Pure hypercholesterolemia, unspecified; I25.2 Old myocardial infarction; K21.9 Gastro-esophageal reflux disease without esophagitis; Z95.0 Presence of cardiac pacemaker; Z98.890 Other specified postprocedural states; Z88.8 Allergy status to other drugs, medicaments and biological substances; Z79.82 Long term (current) use of aspirin; Z79.899 Other long term (current) drug therapy
CPT/HCPCS: 36415; 71045; 80053; 83880; 84484; 85025; 93005; 96374; 99285; J1940

== ENCOUNTER 2020-04-27 10:51 | Emergency (ER) | payer MEDICARE, MEDICAID ==
[~2020-04-27] VITALS: Ht 177.8 cm; Wt 95.5 kg
[~2020-04-27 10:51] MED LIST changes: +LISI-604 PO; -METO5TAB7 PO; +MYC15CR TP; +SPIR25TA PO
[2020-04-27] MEDS ORDERED: normal saline 1000ML IV soln IVB STA (11:07)
[2020-04-27] MEDS ORDERED: famotidine/PF 10 mg/ml inj IV ONE (11:10)
[2020-04-27] MEDS ORDERED: diphenhydrAMINE 50 mg/ml inj IV ONE (11:10)
[2020-04-27 11:55] LABS: HEMOGLOBIN 12.7 g/dl (14.0-17.9); NEUTROPHILS # (AUTO) 4.7 X10'3 (1.8-7.7); WHITE BLOOD COUNT 6.9 X10'3 (4.5-11.0)
[2020-04-27 11:57] LABS: BASOPHILS # (AUTO) 0.1 X10'3 (0-0.2); BASOPHILS % (AUTO) 0.9 % (0-1); EOSINOPHILS # (AUTO) 0.2 X10'3 (0-0.9); EOSINOPHILS % (AUTO) 2.7 % (0-6); HEMATOCRIT 37.6 % (42.0-52.0); LYMPHOCYTES # (AUTO) 1.4 X10'3 (1.1-4.8); LYMPHOCYTES % (AUTO) 20.1 % (21-51); MEAN CORPUSCULAR HEMOGLOBIN 31.5 PG (27.0-31.0); MEAN CORPUSCULAR HGB CONC 33.7 g/dL (33.0-36.5); MEAN CORPUSCULAR VOLUME 93.3 FL (78-98); MEAN PLATELET VOLUME 7.6 FL (7.4-10.4); MONOCYTES # (AUTO) 0.5 X10'3 (0-0.9); MONOCYTES % (AUTO) 7.7 % (2-12); NEUTROPHILS % (AUTO) 68.6 % (42-75); PLATELET COUNT 181 X10'3 (140-440); RED BLOOD COUNT 4.03 X10'6 (4.70-6.10); RED CELL DISTRIBUTION WIDTH 13.9 % (11.5-14.5)
[2020-04-27 12:03] LABS: ALANINE AMINOTRANSFERASE 51 U/L (12-78); ALBUMIN 3.2 G/DL (3.4-5.0); ALKALINE PHOSPHATASE 50 IU/L (46-116); ANION GAP -5 (8-16); ASPARTATE AMINO TRANSFERASE 41 U/L (10-37); BILIRUBIN,TOTAL 0.6 MG/DL (0.1-1.0); BLOOD UREA NITROGEN 14 MG/DL (7-18); BUN/CREATININE RATIO 11.9 (5.4-32.0); CALCIUM 8.2 MG/DL (8.5-10.1); CHLORIDE 101 MMOL/L (99-107); CREATININE 1.18 MG/DL (0.60-1.10); GLUCOSE 94 MG/DL (70-104); POTASSIUM 3.5 MMOL/L (3.5-5.1); SODIUM 123 MMOL/L (135-145); TOTAL CARBON DIOXIDE 27.3 MMOL/L (24-32); TOTAL PROTEIN 6.5 G/DL (6.4-8.2); eGFR 60 ML/MIN
[2020-04-27] MEDS ORDERED: normal saline 1000ML IV soln IVB ONE (12:10)
[2020-04-27 12:12] LABS: MAGNESIUM 2.2 MG/DL (1.5-2.4); PHOSPHORUS 3.2 MG/DL (2.3-4.5)
[2020-04-27 14:21] VITALS: BP 140/73
== END 2020-04-27 14:23 | disposition home or self-care (01) ==
LOC: ER 10:52
DX: E87.1 Hypo-osmolality and hyponatremia (principal); I25.10 Atherosclerotic heart disease of native coronary artery without angina pectoris; I50.9 Heart failure, unspecified; E78.00 Pure hypercholesterolemia, unspecified; I10 Essential (primary) hypertension; K21.9 Gastro-esophageal reflux disease without esophagitis; I21.9 Acute myocardial infarction, unspecified; Z95.0 Presence of cardiac pacemaker; Z98.890 Other specified postprocedural states; Z88.8 Allergy status to other drugs, medicaments and biological substances; Z79.899 Other long term (current) drug therapy
CPT/HCPCS: 36415; 80053; 83735; 84100; 84443; 85025; 96361; 96374; 99283; J1200; J7030

== ENCOUNTER 2020-05-02 05:06 | Emergency (ER) | payer MEDICARE, MEDICAID ==
[~2020-05-02] VITALS: Ht 177.8 cm; Wt 95.3 kg
[2020-05-02] MEDS ORDERED: furosemide 40mg/4ml inj IV ONE (05:10)
[2020-05-02 05:47] LABS: ALANINE AMINOTRANSFERASE 42 U/L (12-78); ALBUMIN 3.7 G/DL (3.4-5.0); ALBUMIN/GLOBULIN RATIO 1.1 (1.1-1.5); ALKALINE PHOSPHATASE 50 IU/L (46-116); ANION GAP 9 (8-16); ASPARTATE AMINO TRANSFERASE 32 U/L (10-37); BLOOD UREA NITROGEN 20 MG/DL (7-18); BUN/CREATININE RATIO 14.9 (5.4-32.0); CALCIUM 8.7 MG/DL (8.5-10.1); CHLORIDE 104 MMOL/L (99-107); CREATININE 1.34 MG/DL (0.60-1.10); GLUCOSE 92 MG/DL (70-104); POTASSIUM 3.6 MMOL/L (3.5-5.1); SODIUM 140 MMOL/L (135-145); TOTAL CARBON DIOXIDE 26.9 MMOL/L (24-32); TOTAL PROTEIN 7.2 G/DL (6.4-8.2); eGFR 51 ML/MIN
[2020-05-02 05:59] LABS: BASOPHILS # (AUTO) 0.1 X10'3 (0-0.2); BASOPHILS % (AUTO) 0.8 % (0-1); EOSINOPHILS # (AUTO) 0.3 X10'3 (0-0.9); EOSINOPHILS % (AUTO) 3.5 % (0-6); HEMOGLOBIN 13.6 g/dl (14.0-17.9); LYMPHOCYTES # (AUTO) 2.3 X10'3 (1.1-4.8); LYMPHOCYTES % (AUTO) 26.1 % (21-51); MEAN CORPUSCULAR HEMOGLOBIN 31.1 PG (27.0-31.0); MEAN CORPUSCULAR HGB CONC 33.2 g/dL (33.0-36.5); MEAN CORPUSCULAR VOLUME 93.5 FL (78-98); MEAN PLATELET VOLUME 7.9 FL (7.4-10.4); MONOCYTES # (AUTO) 0.7 X10'3 (0-0.9); NEUTROPHILS # (AUTO) 5.3 X10'3 (1.8-7.7); NEUTROPHILS % (AUTO) 61.6 % (42-75); PLATELET COUNT 192 X10'3 (140-440); RED BLOOD COUNT 4.38 X10'6 (4.70-6.10); RED CELL DISTRIBUTION WIDTH 14.1 % (11.5-14.5); WHITE BLOOD COUNT 8.7 X10'3 (4.5-11.0)
[2020-05-02 06:40] VITALS: BP 104/56
[2020-05-03] MEDS ORDERED: CEPH250T PO (19:55)
== END 2020-05-02 06:44 | disposition home or self-care (01) ==
LOC: ER 05:07
DX: I11.0 Hypertensive heart disease with heart failure (principal); I50.9 Heart failure, unspecified; I25.10 Atherosclerotic heart disease of native coronary artery without angina pectoris; E78.00 Pure hypercholesterolemia, unspecified; K21.9 Gastro-esophageal reflux disease without esophagitis; G30.9 Alzheimer's disease, unspecified; F02.80 Dementia in other diseases classified elsewhere, unspecified severity, without behavioral disturbance, psychotic disturbance, mood disturbance, and anxiety; Z95.0 Presence of cardiac pacemaker; Z98.890 Other specified postprocedural states; Z98.61 Coronary angioplasty status; Z88.8 Allergy status to other drugs, medicaments and biological substances; Z79.82 Long term (current) use of aspirin; Z79.899 Other long term (current) drug therapy
CPT/HCPCS: 36415; 71045; 80053; 83880; 84484; 85025; 93005; 96374; 99285; J1940; 94010; 94727; 94729

== ENCOUNTER 2020-05-02 07:04 | Outpatient (CLI) | payer MEDICARE, MEDICAID ==
[2020-05-03] MEDS ORDERED: CEPH250T PO (19:55)
== END 2020-05-02 23:59 | disposition home or self-care (01) ==
LOC: RT 07:04
PROVIDERS: ATTEND Internal Medicine Cardiovascular Disease
DX: I48.0 Paroxysmal atrial fibrillation (principal); R06.02 Shortness of breath
CPT/HCPCS: 94010; 94727; 94729

== ENCOUNTER 2020-05-03 19:20 | Emergency (ER) | payer MEDICARE, MEDICAID ==
[~2020-05-03] VITALS: Ht 177.8 cm; Wt 98.1 kg
[2020-05-03 19:29] VITALS: BP 118/60
[2020-05-03] MEDS ORDERED: CEPH250T PO (19:55)
[2020-05-03] MEDS ORDERED: cephalexin 500mg capsule PO ONE (19:55)
== END 2020-05-03 20:31 | disposition home or self-care (01) ==
LOC: ER 19:20
DX: S81.801A Unspecified open wound, right lower leg, initial encounter (principal); L03.115 Cellulitis of right lower limb; I25.10 Atherosclerotic heart disease of native coronary artery without angina pectoris; I11.0 Hypertensive heart disease with heart failure; I50.9 Heart failure, unspecified; E78.00 Pure hypercholesterolemia, unspecified; I25.2 Old myocardial infarction; K21.9 Gastro-esophageal reflux disease without esophagitis; Z95.0 Presence of cardiac pacemaker; Z98.890 Other specified postprocedural states; Z88.8 Allergy status to other drugs, medicaments and biological substances; Z79.82 Long term (current) use of aspirin; Z79.899 Other long term (current) drug therapy; X58.XXXA Exposure to other specified factors, initial encounter; Y93.89 Activity, other specified; Y92.89 Other specified places as the place of occurrence of the external cause; Y99.8 Other external cause status
CPT/HCPCS: 99283

== ENCOUNTER 2020-05-13 21:30 | Emergency (ER) | payer MEDICARE, MEDICAID ==
[~2020-05-13] VITALS: Ht 177.8 cm; Wt 118.2 kg
[2020-05-13 21:45] VITALS: BP 122/54
== END 2020-05-14 00:02 | disposition home or self-care (01) ==
LOC: ER 21:31
DX: S90.01XA Contusion of right ankle, initial encounter (principal); I25.10 Atherosclerotic heart disease of native coronary artery without angina pectoris; I50.9 Heart failure, unspecified; I11.0 Hypertensive heart disease with heart failure; E78.00 Pure hypercholesterolemia, unspecified; K21.9 Gastro-esophageal reflux disease without esophagitis; Z98.61 Coronary angioplasty status; Z95.0 Presence of cardiac pacemaker; Z98.890 Other specified postprocedural states; Z88.8 Allergy status to other drugs, medicaments and biological substances; Z79.82 Long term (current) use of aspirin; Z79.899 Other long term (current) drug therapy; X58.XXXA Exposure to other specified factors, initial encounter; Y93.89 Activity, other specified; Y92.89 Other specified places as the place of occurrence of the external cause; Y99.8 Other external cause status
CPT/HCPCS: 99281; 99284

== ENCOUNTER 2020-06-12 16:21 | Emergency (ER) | payer MEDICARE, MEDICAID, OTHER ==
[~2020-06-12] VITALS: Ht 177.8 cm; Wt 93.2 kg
[2020-06-12 20:37] LABS: BASOPHILS # (AUTO) 0.1 X10'3 (0-0.2); BASOPHILS % (AUTO) 0.6 % (0-1); EOSINOPHILS # (AUTO) 0.1 X10'3 (0-0.9); EOSINOPHILS % (AUTO) 1.2 % (0-6); HEMATOCRIT 41.1 % (42.0-52.0); HEMOGLOBIN 13.7 g/dl (14.0-17.9); LYMPHOCYTES # (AUTO) 1.9 X10'3 (1.1-4.8); LYMPHOCYTES % (AUTO) 21.9 % (21-51); MEAN CORPUSCULAR HEMOGLOBIN 31.2 PG (27.0-31.0); MEAN CORPUSCULAR HGB CONC 33.2 g/dL (33.0-36.5); MEAN PLATELET VOLUME 8.1 FL (7.4-10.4); MONOCYTES # (AUTO) 0.6 X10'3 (0-0.9); MONOCYTES % (AUTO) 6.4 % (2-12); NEUTROPHILS # (AUTO) 6.2 X10'3 (1.8-7.7); NEUTROPHILS % (AUTO) 69.9 % (42-75); PLATELET COUNT 210 X10'3 (140-440); RED BLOOD COUNT 4.38 X10'6 (4.70-6.10); WHITE BLOOD COUNT 8.8 X10'3 (4.5-11.0)
[2020-06-12 20:55] LABS: ALANINE AMINOTRANSFERASE 43 U/L (12-78); ALBUMIN 3.7 G/DL (3.4-5.0); ALBUMIN/GLOBULIN RATIO 1.1 (1.1-1.5); ALKALINE PHOSPHATASE 49 IU/L (46-116); ANION GAP 8 (8-16); ASPARTATE AMINO TRANSFERASE 34 U/L (10-37); BILIRUBIN,TOTAL 0.5 MG/DL (0.1-1.0); BLOOD UREA NITROGEN 23 MG/DL (7-18); BUN/CREATININE RATIO 14.1 (5.4-32.0); CALCIUM 8.7 MG/DL (8.5-10.1); CHLORIDE 103 MMOL/L (99-107); CREATININE 1.63 MG/DL (0.60-1.10); GLUCOSE 101 MG/DL (70-104); POTASSIUM 4.7 MMOL/L (3.5-5.1); SODIUM 140 MMOL/L (135-145); TOTAL CARBON DIOXIDE 29.5 MMOL/L (24-32); TOTAL PROTEIN 7.2 G/DL (6.4-8.2); eGFR 41 ML/MIN
[2020-06-12 21:03] LABS: MAGNESIUM 2.1 MG/DL (1.5-2.4)
[2020-06-12 22:00] VITALS: BP 134/83
== END 2020-06-12 22:02 | disposition home or self-care (01) ==
LOC: ER 16:22
DX: R00.2 Palpitations (principal); I25.10 Atherosclerotic heart disease of native coronary artery without angina pectoris; I11.0 Hypertensive heart disease with heart failure; I50.9 Heart failure, unspecified; E78.00 Pure hypercholesterolemia, unspecified; I25.2 Old myocardial infarction; K21.9 Gastro-esophageal reflux disease without esophagitis; Z95.0 Presence of cardiac pacemaker; Z98.890 Other specified postprocedural states; Z88.8 Allergy status to other drugs, medicaments and biological substances; Z79.82 Long term (current) use of aspirin; Z79.899 Other long term (current) drug therapy
CPT/HCPCS: 36415; 71045; 80053; 83735; 83880; 84484; 85025; 93005; 99285

== ENCOUNTER 2020-07-05 00:25 | Emergency (ER) | payer OTHER, MEDICARE, MEDICAID ==
[~2020-07-05] VITALS: Ht 177.8 cm; Wt 94.9 kg
[~2020-07-05 00:25] MED LIST changes: +CARV3.122 PO; -SPIR25TA PO; +SPIR25TA5 PO
[2020-07-05 01:07] LABS: BASOPHILS # (AUTO) 0.1 X10'3 (0-0.2); BASOPHILS % (AUTO) 1.1 % (0-1); EOSINOPHILS # (AUTO) 0.2 X10'3 (0-0.9); EOSINOPHILS % (AUTO) 2.1 % (0-6); HEMATOCRIT 33.3 % (42.0-52.0); HEMOGLOBIN 11.3 g/dl (14.0-17.9); LYMPHOCYTES # (AUTO) 1.7 X10'3 (1.1-4.8); LYMPHOCYTES % (AUTO) 23.4 % (21-51); MEAN CORPUSCULAR HEMOGLOBIN 31.7 PG (27.0-31.0); MEAN CORPUSCULAR HGB CONC 33.8 g/dL (33.0-36.5); MEAN CORPUSCULAR VOLUME 93.8 FL (78-98); MEAN PLATELET VOLUME 7.1 FL (7.4-10.4); MONOCYTES # (AUTO) 0.6 X10'3 (0-0.9); MONOCYTES % (AUTO) 7.7 % (2-12); NEUTROPHILS # (AUTO) 4.8 X10'3 (1.8-7.7); NEUTROPHILS % (AUTO) 65.7 % (42-75); PLATELET COUNT 168 X10'3 (140-440); RED BLOOD COUNT 3.55 X10'6 (4.70-6.10); RED CELL DISTRIBUTION WIDTH 13.9 % (11.5-14.5); WHITE BLOOD COUNT 7.4 X10'3 (4.5-11.0)
[2020-07-05 01:40] LABS: ALANINE AMINOTRANSFERASE 38 U/L (12-78); ALBUMIN 3.1 G/DL (3.4-5.0); ALKALINE PHOSPHATASE 40 IU/L (46-116); ANION GAP 6 (8-16); ASPARTATE AMINO TRANSFERASE 27 U/L (10-37); BILIRUBIN,TOTAL 0.2 MG/DL (0.1-1.0); BLOOD UREA NITROGEN 20 MG/DL (7-18); BUN/CREATININE RATIO 13.7 (5.4-32.0); CALCIUM 8.1 MG/DL (8.5-10.1); CHLORIDE 106 MMOL/L (99-107); CREATININE 1.46 MG/DL (0.60-1.10); GLUCOSE 108 MG/DL (70-104); POTASSIUM 4.1 MMOL/L (3.5-5.1); SODIUM 141 MMOL/L (135-145); TOTAL CARBON DIOXIDE 29.4 MMOL/L (24-32); TOTAL PROTEIN 6.3 G/DL (6.4-8.2); eGFR 47 ML/MIN
[2020-07-05 01:47] LABS: MAGNESIUM 2.1 MG/DL (1.5-2.4)
[2020-07-05 04:30] VITALS: BP 109/85
== END 2020-07-05 04:36 | disposition home or self-care (01) ==
LOC: ER 00:25
DX: M25.512 Pain in left shoulder (principal); R07.89 Other chest pain; I25.10 Atherosclerotic heart disease of native coronary artery without angina pectoris; I11.0 Hypertensive heart disease with heart failure; I50.9 Heart failure, unspecified; E78.00 Pure hypercholesterolemia, unspecified; I25.2 Old myocardial infarction; K21.9 Gastro-esophageal reflux disease without esophagitis; Z95.0 Presence of cardiac pacemaker; Z98.890 Other specified postprocedural states; Z88.8 Allergy status to other drugs, medicaments and biological substances; Z79.82 Long term (current) use of aspirin; Z79.899 Other long term (current) drug therapy
CPT/HCPCS: 36415; 71045; 80053; 83735; 83880; 84484; 85025; 93005; 99285

== ENCOUNTER 2020-08-03 04:38 | Emergency (ER) | payer OTHER, MEDICARE, MEDICAID ==
[~2020-08-03] VITALS: Ht 177.8 cm; Wt 93.2 kg
[~2020-08-03 04:38] MED LIST changes: -LISI-604 PO; +LISI-790 PO
[2020-08-03 05:13] LABS: BASOPHILS # (AUTO) 0.1 X10'3 (0-0.2); BASOPHILS % (AUTO) 0.8 % (0-1); EOSINOPHILS # (AUTO) 0.2 X10'3 (0-0.9); EOSINOPHILS % (AUTO) 2.2 % (0-6); HEMATOCRIT 38.4 % (42.0-52.0); HEMOGLOBIN 12.7 g/dl (14.0-17.9); LYMPHOCYTES % (AUTO) 22.5 % (21-51); MEAN CORPUSCULAR HGB CONC 33.1 g/dL (33.0-36.5); MEAN CORPUSCULAR VOLUME 93.6 FL (78-98); MEAN PLATELET VOLUME 7.7 FL (7.4-10.4); MONOCYTES # (AUTO) 0.8 X10'3 (0-0.9); MONOCYTES % (AUTO) 8.7 % (2-12); NEUTROPHILS # (AUTO) 5.9 X10'3 (1.8-7.7); NEUTROPHILS % (AUTO) 65.8 % (42-75); PLATELET COUNT 177 X10'3 (140-440); RED CELL DISTRIBUTION WIDTH 13.7 % (11.5-14.5)
[2020-08-03 05:32] LABS: ALANINE AMINOTRANSFERASE 45 U/L (12-78); ALBUMIN 3.3 G/DL (3.4-5.0); ALBUMIN/GLOBULIN RATIO 0.9 (1.1-1.5); ALKALINE PHOSPHATASE 41 IU/L (46-116); ANION GAP 6 (8-16); ASPARTATE AMINO TRANSFERASE 28 U/L (10-37); BILIRUBIN,TOTAL 0.4 MG/DL (0.1-1.0); BLOOD UREA NITROGEN 18 MG/DL (7-18); BUN/CREATININE RATIO 13.4 (5.4-32.0); CALCIUM 8.6 MG/DL (8.5-10.1); CHLORIDE 107 MMOL/L (99-107); CREATININE 1.34 MG/DL (0.60-1.10); GLUCOSE 93 MG/DL (70-104); POTASSIUM 4.2 MMOL/L (3.5-5.1); SODIUM 141 MMOL/L (135-145); TOTAL CARBON DIOXIDE 27.6 MMOL/L (24-32); TOTAL PROTEIN 6.8 G/DL (6.4-8.2); eGFR 51 ML/MIN
[2020-08-03 05:40] LABS: TROPONIN I < 0.04 NG/ML (0.0-0.05)
[2020-08-03 06:23] VITALS: BP 124/68
== END 2020-08-03 06:28 | disposition home or self-care (01) ==
LOC: ER 04:38
DX: R06.02 Shortness of breath (principal); Z20.822 Contact with and (suspected) exposure to COVID-19; I25.10 Atherosclerotic heart disease of native coronary artery without angina pectoris; I11.0 Hypertensive heart disease with heart failure; I50.9 Heart failure, unspecified; E78.00 Pure hypercholesterolemia, unspecified; I25.2 Old myocardial infarction; K21.9 Gastro-esophageal reflux disease without esophagitis; Z95.0 Presence of cardiac pacemaker; Z98.890 Other specified postprocedural states; Z88.8 Allergy status to other drugs, medicaments and biological substances; Z79.82 Long term (current) use of aspirin; Z79.899 Other long term (current) drug therapy
CPT/HCPCS: 36415; 71045; 80053; 83880; 84484; 85025; 87635; 93005; 93308; 99285

== ENCOUNTER 2020-08-24 20:57 | Emergency (ER) | payer OTHER, MEDICARE, MEDICAID ==
[~2020-08-24] VITALS: Ht 177.8 cm; Wt 90.9 kg
[2020-08-24 21:54] LABS: BASOPHILS % (AUTO) 0.6 % (0-1); EOSINOPHILS # (AUTO) 0.2 X10'3 (0-0.9); EOSINOPHILS % (AUTO) 2.2 % (0-6); HEMATOCRIT 39.3 % (42.0-52.0); LYMPHOCYTES # (AUTO) 2.5 X10'3 (1.1-4.8); LYMPHOCYTES % (AUTO) 27.4 % (21-51); MEAN CORPUSCULAR HEMOGLOBIN 30.6 PG (27.0-31.0); MEAN CORPUSCULAR VOLUME 92.5 FL (78-98); MEAN PLATELET VOLUME 7.5 FL (7.4-10.4); MONOCYTES # (AUTO) 0.7 X10'3 (0-0.9); MONOCYTES % (AUTO) 7.7 % (2-12); NEUTROPHILS # (AUTO) 5.6 X10'3 (1.8-7.7); NEUTROPHILS % (AUTO) 62.1 % (42-75); PLATELET COUNT 211 X10'3 (140-440); RED BLOOD COUNT 4.25 X10'6 (4.70-6.10); RED CELL DISTRIBUTION WIDTH 13.8 % (11.5-14.5)
[2020-08-24 22:03] LABS: ALANINE AMINOTRANSFERASE 47 U/L (12-78); ALBUMIN 3.4 G/DL (3.4-5.0); ALKALINE PHOSPHATASE 45 IU/L (46-116); ANION GAP 6 (8-16); ASPARTATE AMINO TRANSFERASE 31 U/L (10-37); BILIRUBIN,TOTAL 0.4 MG/DL (0.1-1.0); BLOOD UREA NITROGEN 20 MG/DL (7-18); BUN/CREATININE RATIO 14.4 (5.4-32.0); CALCIUM 8.8 MG/DL (8.5-10.1); CHLORIDE 99 MMOL/L (99-107); CREATININE 1.39 MG/DL (0.60-1.10); GLUCOSE 100 MG/DL (70-104); POTASSIUM 4.4 MMOL/L (3.5-5.1); SODIUM 132 MMOL/L (135-145); TOTAL CARBON DIOXIDE 26.8 MMOL/L (24-32); TOTAL PROTEIN 6.9 G/DL (6.4-8.2); eGFR 49 ML/MIN
[2020-08-25] MEDS ORDERED: furosemide 20MG tablet PO ONE (00:50)
[2020-08-25 01:03] VITALS: BP 101/53
--- NOTE | 2020-08-25 01:03 | NUR ---
PT SBP 101. NOTIFIED. INSTRUCTIONS TO HOLD ORDERED LASIX AND TO INFORM PATIENT NOT TO TAKE HIS LASIX TONIGHT, BUT TO TAKE IT TOMORROW PRESCRIBED.
== END 2020-08-25 01:09 | disposition home or self-care (01) ==
LOC: ER 20:58
DX: R06.02 Shortness of breath (principal); I50.9 Heart failure, unspecified; I11.0 Hypertensive heart disease with heart failure; I25.10 Atherosclerotic heart disease of native coronary artery without angina pectoris; E78.00 Pure hypercholesterolemia, unspecified; I25.2 Old myocardial infarction; K21.9 Gastro-esophageal reflux disease without esophagitis; N40.0 Benign prostatic hyperplasia without lower urinary tract symptoms; Z98.61 Coronary angioplasty status; Z95.5 Presence of coronary angioplasty implant and graft; Z87.81 Personal history of (healed) traumatic fracture; Z88.8 Allergy status to other drugs, medicaments and biological substances; Z79.82 Long term (current) use of aspirin; Z79.899 Other long term (current) drug therapy
CPT/HCPCS: 36415; 71045; 80053; 83880; 84484; 85025; 93005; 99285

== ENCOUNTER 2020-09-10 19:32 | Emergency (ER) | payer OTHER, MEDICARE, MEDICAID ==
[~2020-09-10] VITALS: Ht 177.8 cm; Wt 90.9 kg
[2020-09-10 20:07] LABS: BASOPHILS # (AUTO) 0.1 X10'3 (0-0.2); BASOPHILS % (AUTO) 0.7 % (0-1); EOSINOPHILS # (AUTO) 0.2 X10'3 (0-0.9); HEMATOCRIT 40.1 % (42.0-52.0); HEMOGLOBIN 13.4 g/dl (14.0-17.9); LYMPHOCYTES # (AUTO) 2.3 X10'3 (1.1-4.8); MEAN CORPUSCULAR HEMOGLOBIN 30.9 PG (27.0-31.0); MEAN CORPUSCULAR HGB CONC 33.4 g/dL (33.0-36.5); MEAN CORPUSCULAR VOLUME 92.7 FL (78-98); MEAN PLATELET VOLUME 7.8 FL (7.4-10.4); MONOCYTES # (AUTO) 0.6 X10'3 (0-0.9); MONOCYTES % (AUTO) 7.5 % (2-12); NEUTROPHILS # (AUTO) 4.9 X10'3 (1.8-7.7); NEUTROPHILS % (AUTO) 60.8 % (42-75); PLATELET COUNT 169 X10'3 (140-440); RED BLOOD COUNT 4.33 X10'6 (4.70-6.10); RED CELL DISTRIBUTION WIDTH 13.7 % (11.5-14.5)
[2020-09-10 20:11] LABS: ALANINE AMINOTRANSFERASE 37 U/L (12-78); ALBUMIN 3.4 G/DL (3.4-5.0); ALKALINE PHOSPHATASE 41 IU/L (46-116); ANION GAP 12 (8-16); ASPARTATE AMINO TRANSFERASE 33 U/L (10-37); BILIRUBIN,TOTAL 0.5 MG/DL (0.1-1.0); BLOOD UREA NITROGEN 17 MG/DL (7-18); BUN/CREATININE RATIO 14.5 (5.4-32.0); CALCIUM 8.5 MG/DL (8.5-10.1); CHLORIDE 103 MMOL/L (99-107); CREATININE 1.17 MG/DL (0.60-1.10); GLUCOSE 89 MG/DL (70-104); POTASSIUM 4.3 MMOL/L (3.5-5.1); SODIUM 140 MMOL/L (135-145); TOTAL CARBON DIOXIDE 25.1 MMOL/L (24-32); TOTAL PROTEIN 6.9 G/DL (6.4-8.2); eGFR 60 ML/MIN
[2020-09-10 22:42] VITALS: BP 117/62
== END 2020-09-10 22:44 | disposition home or self-care (01) ==
LOC: ER 19:32
DX: R00.2 Palpitations (principal); R07.89 Other chest pain; I25.10 Atherosclerotic heart disease of native coronary artery without angina pectoris; E78.00 Pure hypercholesterolemia, unspecified; I50.9 Heart failure, unspecified; I11.0 Hypertensive heart disease with heart failure; I25.2 Old myocardial infarction; K21.9 Gastro-esophageal reflux disease without esophagitis; N40.0 Benign prostatic hyperplasia without lower urinary tract symptoms; Z98.61 Coronary angioplasty status; Z88.8 Allergy status to other drugs, medicaments and biological substances; Z79.82 Long term (current) use of aspirin; Z79.890 Hormone replacement therapy; Z95.0 Presence of cardiac pacemaker
CPT/HCPCS: 36415; 71045; 80053; 83880; 84484; 85025; 93005; 99285

== ENCOUNTER 2020-10-21 03:21 | Emergency (ER) | payer OTHER, MEDICARE, MEDICAID ==
[~2020-10-21] VITALS: Ht 177.8 cm; Wt 90.9 kg
[2020-10-21] MEDS ORDERED: acetaminophen 325mg tablet PO ONE (03:50)
[2020-10-21 04:07] LABS: BASOPHILS # (AUTO) 0.1 X10'3 (0-0.2); BASOPHILS % (AUTO) 0.7 % (0-1); EOSINOPHILS # (AUTO) 0.1 X10'3 (0-0.9); EOSINOPHILS % (AUTO) 0.8 % (0-6); HEMOGLOBIN 12.2 g/dl (14.0-17.9); LYMPHOCYTES # (AUTO) 0.7 X10'3 (1.1-4.8); LYMPHOCYTES % (AUTO) 9.6 % (21-51); MEAN CORPUSCULAR HEMOGLOBIN 31.3 PG (27.0-31.0); MEAN CORPUSCULAR VOLUME 94.6 FL (78-98); MONOCYTES # (AUTO) 0.6 X10'3 (0-0.9); MONOCYTES % (AUTO) 7.7 % (2-12); NEUTROPHILS # (AUTO) 5.9 X10'3 (1.8-7.7); NEUTROPHILS % (AUTO) 81.2 % (42-75); PLATELET COUNT 141 X10'3 (140-440); RED BLOOD COUNT 3.91 X10'6 (4.70-6.10); RED CELL DISTRIBUTION WIDTH 14.4 % (11.5-14.5); WHITE BLOOD COUNT 7.2 X10'3 (4.5-11.0)
[2020-10-21 04:20] LABS: ALANINE AMINOTRANSFERASE 41 U/L (12-78); ALBUMIN 3.2 G/DL (3.4-5.0); ALKALINE PHOSPHATASE 42 IU/L (46-116); ANION GAP 8 (8-16); ASPARTATE AMINO TRANSFERASE 31 U/L (10-37); BILIRUBIN,TOTAL 0.6 MG/DL (0.1-1.0); BLOOD UREA NITROGEN 21 MG/DL (7-18); CALCIUM 7.4 MG/DL (8.5-10.1); CHLORIDE 108 MMOL/L (99-107); CREATININE 1.31 MG/DL (0.60-1.10); GLUCOSE 93 MG/DL (70-104); POTASSIUM 3.4 MMOL/L (3.5-5.1); SODIUM 143 MMOL/L (135-145); TOTAL CARBON DIOXIDE 27.1 MMOL/L (24-32); TOTAL PROTEIN 6.3 G/DL (6.4-8.2); eGFR 53 ML/MIN
[2020-10-21 04:27] LABS: MAGNESIUM 1.9 MG/DL (1.5-2.4)
[2020-10-21 04:43] LABS: CLARITY,URINE CLEAR (Clear); COLOR,URINE YELLOW (Yellow); GLUCOSE, URINE NEGATIVE (Neg); KETONES,URINE NEGATIVE (Neg); LEUKOCYTE ESTERASE ,URINE NEGATIVE (Neg); NITRITES, URINE NEGATIVE (Neg); OCCULT BLOOD,URINE SMALL (Neg); PROTEIN,URINE NEGATIVE (Neg); UROBILINOGEN,URINE 0.2 E.U/dL (0.2-1.0)
[2020-10-21 04:53] LABS: UA COLLECTION TYPE NON-SPECIFIED
[2020-10-21 04:54] LABS: BACTERIA,URINE NONE SEEN /HPF (Neg); RBC,URINE 0-2 /HPF (0-2); SQUAMOUS EPITHELIAL CELL,UR FEW /LPF (FEW); WBC,URINE NONE SEEN /HPF (0-4)
[2020-10-21 05:37] VITALS: BP 110/74
== END 2020-10-21 05:39 | disposition home or self-care (01) ==
LOC: ER 03:21
DX: R06.02 Shortness of breath (principal); R05 Cough; I25.10 Atherosclerotic heart disease of native coronary artery without angina pectoris; I50.9 Heart failure, unspecified; I11.0 Hypertensive heart disease with heart failure; E78.00 Pure hypercholesterolemia, unspecified; I25.2 Old myocardial infarction; N40.0 Benign prostatic hyperplasia without lower urinary tract symptoms; K21.9 Gastro-esophageal reflux disease without esophagitis; Z95.0 Presence of cardiac pacemaker; Z95.5 Presence of coronary angioplasty implant and graft; Z98.890 Other specified postprocedural states; Z79.82 Long term (current) use of aspirin; Z79.899 Other long term (current) drug therapy
CPT/HCPCS: 36415; 71045; 80053; 81001; 83605; 83735; 83880; 84145; 84484; 85025; 87040; 93005; 99285

== ENCOUNTER 2020-10-21 09:32 | Emergency (ER) | payer OTHER, MEDICARE, MEDICAID ==
[~2020-10-21] VITALS: Ht 177.8 cm; Wt 93.8 kg
[2020-10-21 09:54] VITALS: BP 109/58
== END 2020-10-21 10:49 | disposition home or self-care (01) ==
LOC: ER 09:32
DX: S60.222A Contusion of left hand, initial encounter (principal); I25.10 Atherosclerotic heart disease of native coronary artery without angina pectoris; I50.9 Heart failure, unspecified; I11.0 Hypertensive heart disease with heart failure; E78.00 Pure hypercholesterolemia, unspecified; K21.9 Gastro-esophageal reflux disease without esophagitis; I25.2 Old myocardial infarction; N40.0 Benign prostatic hyperplasia without lower urinary tract symptoms; Z95.5 Presence of coronary angioplasty implant and graft; Z95.0 Presence of cardiac pacemaker; Z85.038 Personal history of other malignant neoplasm of large intestine; Z88.8 Allergy status to other drugs, medicaments and biological substances; Z79.82 Long term (current) use of aspirin; Z79.01 Long term (current) use of anticoagulants; Z79.899 Other long term (current) drug therapy; X58.XXXA Exposure to other specified factors, initial encounter; Y93.89 Activity, other specified; Y92.89 Other specified places as the place of occurrence of the external cause; Y99.8 Other external cause status
CPT/HCPCS: 99282

== ENCOUNTER 2020-11-03 02:46 | Emergency (ER) | payer OTHER, MEDICARE, MEDICAID ==
[~2020-11-03] VITALS: Ht 177.8 cm; Wt 90.9 kg
[2020-11-03 03:10] VITALS: BP 110/59
--- NOTE | 2020-11-03 06:24 | NUR ---
Sister Mercedes [phone] called to come picking machine operator helper patient - she states she is "on her way".
== END 2020-11-03 06:27 | disposition home or self-care (01) ==
LOC: ER 02:47
DX: R51.9 Headache, unspecified (principal); M54.9 Dorsalgia, unspecified; I11.9 Hypertensive heart disease without heart failure; E78.00 Pure hypercholesterolemia, unspecified; K21.9 Gastro-esophageal reflux disease without esophagitis; Z88.8 Allergy status to other drugs, medicaments and biological substances; Z79.899 Other long term (current) drug therapy
CPT/HCPCS: 99283

== ENCOUNTER 2020-12-11 03:56 | Emergency (ER) | payer OTHER, MEDICARE, MEDICAID ==
[~2020-12-11] VITALS: Ht 177.8 cm; Wt 90.0 kg
[2020-12-11 06:05] LABS: BASOPHILS # (AUTO) 0.1 X10'3 (0-0.2); BASOPHILS % (AUTO) 0.7 % (0-1); EOSINOPHILS # (AUTO) 0.2 X10'3 (0-0.9); EOSINOPHILS % (AUTO) 2.1 % (0-6); HEMATOCRIT 38.8 % (42.0-52.0); HEMOGLOBIN 13.1 g/dl (14.0-17.9); LYMPHOCYTES # (AUTO) 1.7 X10'3 (1.1-4.8); LYMPHOCYTES % (AUTO) 20.3 % (21-51); MEAN CORPUSCULAR HEMOGLOBIN 31.7 PG (27.0-31.0); MEAN CORPUSCULAR HGB CONC 33.8 g/dL (33.0-36.5); MEAN CORPUSCULAR VOLUME 93.8 FL (78-98); MONOCYTES # (AUTO) 0.6 X10'3 (0-0.9); MONOCYTES % (AUTO) 7.6 % (2-12); NEUTROPHILS # (AUTO) 5.7 X10'3 (1.8-7.7); NEUTROPHILS % (AUTO) 69.3 % (42-75); PLATELET COUNT 171 X10'3 (140-440); RED BLOOD COUNT 4.14 X10'6 (4.70-6.10); RED CELL DISTRIBUTION WIDTH 14.1 % (11.5-14.5); WHITE BLOOD COUNT 8.2 X10'3 (4.5-11.0)
[2020-12-11 06:17] LABS: ALANINE AMINOTRANSFERASE 44 U/L (12-78); ALBUMIN 3.4 G/DL (3.4-5.0); ALKALINE PHOSPHATASE 36 IU/L (46-116); ANION GAP 9 (8-16); ASPARTATE AMINO TRANSFERASE 30 U/L (10-37); BILIRUBIN,TOTAL 0.7 MG/DL (0.1-1.0); BLOOD UREA NITROGEN 17 MG/DL (7-18); BUN/CREATININE RATIO 13.1 (5.4-32.0); CALCIUM 8.3 MG/DL (8.5-10.1); CHLORIDE 107 MMOL/L (99-107); GLUCOSE 92 MG/DL (70-104); SODIUM 142 MMOL/L (135-145); TOTAL CARBON DIOXIDE 26.2 MMOL/L (24-32); TOTAL PROTEIN 6.7 G/DL (6.4-8.2); eGFR 53 ML/MIN
[2020-12-11 06:25] LABS: TROPONIN I < 0.04 NG/ML (0.0-0.05)
[2020-12-11 08:09] VITALS: BP 114/63
== END 2020-12-11 08:10 | disposition home or self-care (01) ==
LOC: ER 03:57
DX: T67.9XXA Effect of heat and light, unspecified, initial encounter (principal); R06.02 Shortness of breath; I50.9 Heart failure, unspecified; I25.9 Chronic ischemic heart disease, unspecified; I25.2 Old myocardial infarction; E78.00 Pure hypercholesterolemia, unspecified; K21.9 Gastro-esophageal reflux disease without esophagitis; Z95.0 Presence of cardiac pacemaker; Z79.82 Long term (current) use of aspirin; Z79.899 Other long term (current) drug therapy; Z88.8 Allergy status to other drugs, medicaments and biological substances; X58.XXXA Exposure to other specified factors, initial encounter; Y93.89 Activity, other specified; Y92.89 Other specified places as the place of occurrence of the external cause; Y99.8 Other external cause status
CPT/HCPCS: 36415; 71045; 80053; 83880; 84145; 84484; 85025; 93005; 99285

== ENCOUNTER 2021-03-04 01:56 | Emergency (ER) | payer OTHER, MEDICARE, MEDICAID ==
[~2021-03-04] VITALS: Ht 177.8 cm; Wt 98.0 kg
[2021-03-04 03:30] LABS: ALANINE AMINOTRANSFERASE 37 U/L (12-78); ALBUMIN 3.4 G/DL (3.4-5.0); ALKALINE PHOSPHATASE 50 IU/L (46-116); ANION GAP 9 (8-16); ASPARTATE AMINO TRANSFERASE 28 U/L (10-37); BASOPHILS # (AUTO) 0.1 X10'3 (0-0.2); BASOPHILS % (AUTO) 0.9 % (0-1); BILIRUBIN,TOTAL 0.4 MG/DL (0.1-1.0); BLOOD UREA NITROGEN 26 MG/DL (7-18); BUN/CREATININE RATIO 16.5 (5.4-32.0); CHLORIDE 106 MMOL/L (99-107); CREATININE 1.58 MG/DL (0.60-1.10); EOSINOPHILS # (AUTO) 0.2 X10'3 (0-0.9); GLUCOSE 103 MG/DL (70-104); HEMATOCRIT 38.2 % (42.0-52.0); LYMPHOCYTES # (AUTO) 1.7 X10'3 (1.1-4.8); LYMPHOCYTES % (AUTO) 18.7 % (21-51); MEAN CORPUSCULAR HEMOGLOBIN 31.7 PG (27.0-31.0); MEAN CORPUSCULAR HGB CONC 34.2 g/dL (33.0-36.5); MEAN CORPUSCULAR VOLUME 92.8 FL (78-98); MEAN PLATELET VOLUME 8.2 FL (7.4-10.4); MONOCYTES # (AUTO) 0.6 X10'3 (0-0.9); MONOCYTES % (AUTO) 6.9 % (2-12); NEUTROPHILS # (AUTO) 6.5 X10'3 (1.8-7.7); NEUTROPHILS % (AUTO) 71.5 % (42-75); PLATELET COUNT 168 X10'3 (140-440); POTASSIUM 4.4 MMOL/L (3.5-5.1); RED BLOOD COUNT 4.11 X10'6 (4.70-6.10); RED CELL DISTRIBUTION WIDTH 14.1 % (11.5-14.5); SODIUM 140 MMOL/L (135-145); TOTAL CARBON DIOXIDE 24.8 MMOL/L (24-32); TOTAL PROTEIN 6.7 G/DL (6.4-8.2); WHITE BLOOD COUNT 9.2 X10'3 (4.5-11.0); eGFR 43 ML/MIN
[2021-03-04 04:33] VITALS: BP 118/69
== END 2021-03-04 04:34 | disposition home or self-care (01) ==
LOC: ER 01:57
DX: R06.02 Shortness of breath (principal); Z20.822 Contact with and (suspected) exposure to COVID-19; R53.1 Weakness; I25.10 Atherosclerotic heart disease of native coronary artery without angina pectoris; E78.00 Pure hypercholesterolemia, unspecified; I11.0 Hypertensive heart disease with heart failure; I50.9 Heart failure, unspecified; I25.2 Old myocardial infarction; K21.9 Gastro-esophageal reflux disease without esophagitis; N40.0 Benign prostatic hyperplasia without lower urinary tract symptoms; Z95.0 Presence of cardiac pacemaker; Z95.5 Presence of coronary angioplasty implant and graft; Z98.890 Other specified postprocedural states; Z88.8 Allergy status to other drugs, medicaments and biological substances; Z79.82 Long term (current) use of aspirin; Z79.899 Other long term (current) drug therapy
CPT/HCPCS: 36415; 71045; 80053; 83880; 84484; 85025; 87635; 93005; 99285; C9803

== ENCOUNTER 2021-03-11 21:15 | Emergency (ER) | payer OTHER, MEDICARE, MEDICAID ==
[~2021-03-11] VITALS: Ht 177.8 cm; Wt 90.9 kg
[2021-03-11 23:15] LABS: BASOPHILS # (AUTO) 0.1 X10'3 (0-0.2); BASOPHILS % (AUTO) 0.7 % (0-1); EOSINOPHILS # (AUTO) 0.1 X10'3 (0-0.9); EOSINOPHILS % (AUTO) 1.2 % (0-6); HEMATOCRIT 37.1 % (42.0-52.0); HEMOGLOBIN 12.8 g/dl (14.0-17.9); LYMPHOCYTES # (AUTO) 2.1 X10'3 (1.1-4.8); LYMPHOCYTES % (AUTO) 19.8 % (21-51); MEAN CORPUSCULAR HEMOGLOBIN 32.2 PG (27.0-31.0); MEAN CORPUSCULAR HGB CONC 34.5 g/dL (33.0-36.5); MEAN CORPUSCULAR VOLUME 93.5 FL (78-98); MEAN PLATELET VOLUME 7.5 FL (7.4-10.4); MONOCYTES # (AUTO) 0.8 X10'3 (0-0.9); MONOCYTES % (AUTO) 7.3 % (2-12); NEUTROPHILS # (AUTO) 7.4 X10'3 (1.8-7.7); PLATELET COUNT 189 X10'3 (140-440); RED BLOOD COUNT 3.97 X10'6 (4.70-6.10); RED CELL DISTRIBUTION WIDTH 13.6 % (11.5-14.5); WHITE BLOOD COUNT 10.5 X10'3 (4.5-11.0)
[2021-03-11 23:21] LABS: ALANINE AMINOTRANSFERASE 30 U/L (12-78); ALBUMIN 3.5 G/DL (3.4-5.0); ALBUMIN/GLOBULIN RATIO 1.1 (1.1-1.5); ALKALINE PHOSPHATASE 48 IU/L (46-116); ANION GAP 5 (8-16); ASPARTATE AMINO TRANSFERASE 17 U/L (10-37); BILIRUBIN,TOTAL 0.6 MG/DL (0.1-1.0); BLOOD UREA NITROGEN 23 MG/DL (7-18); BUN/CREATININE RATIO 14.9 (5.4-32.0); CALCIUM 8.5 MG/DL (8.5-10.1); CHLORIDE 103 MMOL/L (99-107); CREATININE 1.54 MG/DL (0.60-1.10); GLUCOSE 110 MG/DL (70-104); POTASSIUM 4.4 MMOL/L (3.5-5.1); SODIUM 134 MMOL/L (135-145); TOTAL CARBON DIOXIDE 26.4 MMOL/L (24-32); TOTAL PROTEIN 6.8 G/DL (6.4-8.2); eGFR 44 ML/MIN
[2021-03-11 23:23] LABS: BILIRUBIN,DIRECT 0.2 MG/DL (0-0.3); LIPASE 194 U/L (73-393); TROPONIN I < 0.04 NG/ML (0.0-0.05)
[2021-03-12 00:17] VITALS: BP 115/63
== END 2021-03-12 00:20 | disposition home or self-care (01) ==
LOC: ER 21:16
DX: M79.602 Pain in left arm (principal); I25.10 Atherosclerotic heart disease of native coronary artery without angina pectoris; I11.0 Hypertensive heart disease with heart failure; I50.9 Heart failure, unspecified; E78.00 Pure hypercholesterolemia, unspecified; I25.2 Old myocardial infarction; K21.9 Gastro-esophageal reflux disease without esophagitis; N40.0 Benign prostatic hyperplasia without lower urinary tract symptoms; Z95.5 Presence of coronary angioplasty implant and graft; Z88.8 Allergy status to other drugs, medicaments and biological substances; Z79.82 Long term (current) use of aspirin; Z79.899 Other long term (current) drug therapy; Z95.0 Presence of cardiac pacemaker
CPT/HCPCS: 36415; 71045; 80048; 80076; 83690; 84484; 85025; 93005; 99285

== ENCOUNTER 2021-04-25 07:52 | Emergency (ER) | payer OTHER, MEDICARE, MEDICAID ==
[~2021-04-25] VITALS: Ht 177.8 cm; Wt 95.5 kg
[~2021-04-25 07:52] MED LIST changes: -LISI-790 PO; +LISI5TAB22 PO; +POTA-188 PO; -POTA10TA10 PO
[2021-04-25 09:50] LABS: BASOPHILS % (AUTO) 0.3 % (0-1); EOSINOPHILS % (AUTO) 0.3 % (0-6); HEMATOCRIT 37.9 % (42.0-52.0); HEMOGLOBIN 12.8 g/dl (14.0-17.9); LYMPHOCYTES # (AUTO) 0.6 X10'3 (1.1-4.8); LYMPHOCYTES % (AUTO) 6.3 % (21-51); MEAN CORPUSCULAR HEMOGLOBIN 31.5 PG (27.0-31.0); MEAN CORPUSCULAR HGB CONC 33.7 g/dL (33.0-36.5); MEAN CORPUSCULAR VOLUME 93.7 FL (78-98); MEAN PLATELET VOLUME 7.6 FL (7.4-10.4); MONOCYTES # (AUTO) 0.6 X10'3 (0-0.9); MONOCYTES % (AUTO) 6.8 % (2-12); NEUTROPHILS # (AUTO) 7.7 X10'3 (1.8-7.7); NEUTROPHILS % (AUTO) 86.3 % (42-75); PLATELET COUNT 168 X10'3 (140-440); RED BLOOD COUNT 4.05 X10'6 (4.70-6.10); RED CELL DISTRIBUTION WIDTH 13.5 % (11.5-14.5); WHITE BLOOD COUNT 8.9 X10'3 (4.5-11.0)
[2021-04-25 10:09] LABS: GLUCOSE 95 MG/DL (70-104); POTASSIUM 4.1 MMOL/L (3.5-5.1); SODIUM 140 MMOL/L (135-145)
[2021-04-25 10:10] LABS: ALANINE AMINOTRANSFERASE 34 U/L (12-78); ALBUMIN 3.4 G/DL (3.4-5.0); ALKALINE PHOSPHATASE 36 IU/L (46-116); ANION GAP 7 (8-16); ASPARTATE AMINO TRANSFERASE 19 U/L (10-37); BILIRUBIN,TOTAL 0.8 MG/DL (0.1-1.0); BLOOD UREA NITROGEN 19 MG/DL (7-18); BUN/CREATININE RATIO 12.8 (5.4-32.0); CALCIUM 8.2 MG/DL (8.5-10.1); CHLORIDE 105 MMOL/L (99-107); CREATININE 1.49 MG/DL (0.60-1.10); TOTAL CARBON DIOXIDE 27.9 MMOL/L (24-32); TOTAL PROTEIN 6.9 G/DL (6.4-8.2); eGFR 45 ML/MIN
[2021-04-25 10:15] VITALS: BP 117/57
== END 2021-04-25 11:39 | disposition home or self-care (01) ==
LOC: ER 07:53
DX: R50.9 Fever, unspecified (principal); M79.10 Myalgia, unspecified site; R51.9 Headache, unspecified; R11.0 Nausea; M79.622 Pain in left upper arm; I25.10 Atherosclerotic heart disease of native coronary artery without angina pectoris; I11.0 Hypertensive heart disease with heart failure; I50.9 Heart failure, unspecified; I25.2 Old myocardial infarction; E78.00 Pure hypercholesterolemia, unspecified; K21.9 Gastro-esophageal reflux disease without esophagitis; Z23 Encounter for immunization; Z95.0 Presence of cardiac pacemaker; Z98.890 Other specified postprocedural states; Z88.8 Allergy status to other drugs, medicaments and biological substances; Z79.82 Long term (current) use of aspirin; Z79.899 Other long term (current) drug therapy
CPT/HCPCS: 36415; 80053; 84145; 85025; 99284

== ENCOUNTER 2021-04-26 22:37 | Emergency (ER) | payer OTHER, MEDICARE, MEDICAID ==
[~2021-04-26] VITALS: Ht 177.8 cm; Wt 90.9 kg
[2021-04-27 00:36] LABS: BASOPHILS % (AUTO) 0.3 % (0-1); EOSINOPHILS # (AUTO) 0.1 X10'3 (0-0.9); EOSINOPHILS % (AUTO) 0.7 % (0-6); HEMATOCRIT 38.2 % (42.0-52.0); HEMOGLOBIN 13.1 g/dl (14.0-17.9); LYMPHOCYTES # (AUTO) 1.1 X10'3 (1.1-4.8); LYMPHOCYTES % (AUTO) 8.9 % (21-51); MEAN CORPUSCULAR HEMOGLOBIN 31.7 PG (27.0-31.0); MEAN CORPUSCULAR HGB CONC 34.2 g/dL (33.0-36.5); MEAN CORPUSCULAR VOLUME 92.8 FL (78-98); MEAN PLATELET VOLUME 7.6 FL (7.4-10.4); MONOCYTES % (AUTO) 8.6 % (2-12); NEUTROPHILS # (AUTO) 9.6 X10'3 (1.8-7.7); NEUTROPHILS % (AUTO) 81.5 % (42-75); PLATELET COUNT 185 X10'3 (140-440); RED BLOOD COUNT 4.12 X10'6 (4.70-6.10); WHITE BLOOD COUNT 11.8 X10'3 (4.5-11.0)
[2021-04-27 00:53] LABS: ALANINE AMINOTRANSFERASE 45 U/L (12-78); ALBUMIN 3.6 G/DL (3.4-5.0); ALKALINE PHOSPHATASE 40 IU/L (46-116); ANION GAP 6 (8-16); ASPARTATE AMINO TRANSFERASE 36 U/L (10-37); BILIRUBIN,TOTAL 0.5 MG/DL (0.1-1.0); BLOOD UREA NITROGEN 19 MG/DL (7-18); BUN/CREATININE RATIO 12.6 (5.4-32.0); CALCIUM 8.9 MG/DL (8.5-10.1); CHLORIDE 99 MMOL/L (99-107); CREATININE 1.51 MG/DL (0.60-1.10); GLUCOSE 118 MG/DL (70-104); POTASSIUM 4.2 MMOL/L (3.5-5.1); SODIUM 133 MMOL/L (135-145); TOTAL CARBON DIOXIDE 27.9 MMOL/L (24-32); TOTAL PROTEIN 7.1 G/DL (6.4-8.2); eGFR 45 ML/MIN
[2021-04-27 01:01] LABS: MAGNESIUM 1.9 MG/DL (1.5-2.4)
[2021-04-27 02:52] VITALS: BP 121/64
== END 2021-04-27 05:03 | disposition home or self-care (01) ==
LOC: ER 22:37
DX: R07.89 Other chest pain (principal); Z20.822 Contact with and (suspected) exposure to COVID-19; R06.02 Shortness of breath; R53.1 Weakness; I25.10 Atherosclerotic heart disease of native coronary artery without angina pectoris; I11.0 Hypertensive heart disease with heart failure; I50.9 Heart failure, unspecified; E78.00 Pure hypercholesterolemia, unspecified; I25.2 Old myocardial infarction; K21.9 Gastro-esophageal reflux disease without esophagitis; Z95.0 Presence of cardiac pacemaker; Z98.890 Other specified postprocedural states; Z88.8 Allergy status to other drugs, medicaments and biological substances; Z79.82 Long term (current) use of aspirin; Z79.899 Other long term (current) drug therapy
CPT/HCPCS: 36415; 71045; 80053; 83735; 83880; 84484; 85025; 93005; 99285; U0003; U0005

== ENCOUNTER 2021-05-02 01:08 | Inpatient (IN) | payer OTHER, MEDICARE, MEDICAID ==
[~2021-05-02] VITALS: Ht 177.8 cm; Wt 95.1 kg
[2021-05-02 02:29] LABS: BASOPHILS # (AUTO) 0.1 X10'3 (0-0.2); BASOPHILS % (AUTO) 1.2 % (0-1); EOSINOPHILS # (AUTO) 0.3 X10'3 (0-0.9); EOSINOPHILS % (AUTO) 2.9 % (0-6); HEMATOCRIT 36.5 % (42.0-52.0); HEMOGLOBIN 12.3 g/dl (14.0-17.9); LYMPHOCYTES % (AUTO) 21.9 % (21-51); MEAN CORPUSCULAR HEMOGLOBIN 31.5 PG (27.0-31.0); MEAN CORPUSCULAR HGB CONC 33.8 g/dL (33.0-36.5); MEAN CORPUSCULAR VOLUME 93.2 FL (78-98); MEAN PLATELET VOLUME 7.3 FL (7.4-10.4); MONOCYTES % (AUTO) 10.7 % (2-12); NEUTROPHILS # (AUTO) 5.8 X10'3 (1.8-7.7); NEUTROPHILS % (AUTO) 63.3 % (42-75); PLATELET COUNT 224 X10'3 (140-440); RED BLOOD COUNT 3.92 X10'6 (4.70-6.10); RED CELL DISTRIBUTION WIDTH 13.4 % (11.5-14.5); WHITE BLOOD COUNT 9.2 X10'3 (4.5-11.0)
[2021-05-02 02:39] LABS: ALANINE AMINOTRANSFERASE 44 U/L (12-78); ALBUMIN 3.1 G/DL (3.4-5.0); ALBUMIN/GLOBULIN RATIO 0.9 (1.1-1.5); ALKALINE PHOSPHATASE 40 IU/L (46-116); ANION GAP 9 (8-16); ASPARTATE AMINO TRANSFERASE 27 U/L (10-37); BILIRUBIN,TOTAL 0.6 MG/DL (0.1-1.0); BLOOD UREA NITROGEN 22 MG/DL (7-18); BUN/CREATININE RATIO 16.4 (5.4-32.0); CALCIUM 8.2 MG/DL (8.5-10.1); CHLORIDE 108 MMOL/L (99-107); CREATININE 1.34 MG/DL (0.60-1.10); GLUCOSE 96 MG/DL (70-104); POTASSIUM 4.2 MMOL/L (3.5-5.1); SODIUM 142 MMOL/L (135-145); TOTAL PROTEIN 6.7 G/DL (6.4-8.2); eGFR 51 ML/MIN
[2021-05-02] MEDS ORDERED: morphine 2 MG/ML inj. syringe IV PRN ×2 (04:35)
[2021-05-02] MEDS ORDERED: acetaminophen 650mg rectal suppository RC PRN (04:35)
[2021-05-02] MEDS ORDERED: ondansetron 4mg rapidly disintigrating tab PO PRN (04:35)
[2021-05-02] MEDS ORDERED: diphenhydrAMINE 50 mg/ml inj IV PRN (04:35)
[2021-05-02] MEDS ORDERED: diphenhydrAMINE 25mg capsule PO PRN (04:35)
[2021-05-02] MEDS ORDERED: magnesium hydroxide 30ml (MOM) UD suspension PO PRN (04:35)
[2021-05-02] MEDS ORDERED: mag hydrox/Alum hydrox/simeth 30ml oral suspension PO PRN (04:35)
[2021-05-02] MEDS ORDERED: ipratropium/albuterol 3ml nebule NEB PRN (04:35)
[2021-05-02] MEDS ORDERED: HYDROcodone/acetaminophen 5mg/325mg tablet PO PRN (04:35)
[2021-05-02] MEDS ORDERED: acetaminophen 325mg tablet PO PRN ×2 (04:35)
[2021-05-02] MEDS ORDERED: bisacodyl 10mg suppository rectal RC PRN (04:35)
[2021-05-02] MEDS ORDERED: ondansetron/PF 4mg/2ml inj IV PRN (04:35)
[2021-05-02 04:59] LABS: D-DIMER 0.35 MG/L FEU (0-0.50); PARTIAL THROMBOPLASTIN TIME 30 SECONDS (22-32)
[2021-05-02 05:01] LABS: CREATINE KINASE 189 U/L (39-308); LIPASE 190 U/L (73-393); MAGNESIUM 2.4 MG/DL (1.5-2.4); PHOSPHORUS 3.5 MG/DL (2.3-4.5)
[2021-05-02 05:27] LABS: HEMOGLOBIN A1C 5.4 % (4.5-6.2)
[2021-05-02] MEDS ORDERED: POTA-207 PO (05:59)
[2021-05-02] MEDS ORDERED: FURO40TA4 PO (06:05)
[2021-05-02] MEDS ORDERED: nitroGLYCERIN 0.4mg SUBLingual tab SL PRN (06:25)
[2021-05-02] MEDS ORDERED: albuterol 2.5 MG/3 ML nebule NEB PRN (06:25)
[2021-05-02] MEDS: amiodarone 200mg tablet PO SCH (07:03)
[2021-05-02] MEDS: furosemide 10 MG/1 ML 10ml inj IV SCH (07:03)
[2021-05-02] MEDS: pantoprazole 40mg Tablet.DR PO SCH (07:03)
[2021-05-02] MEDS: carVEDilol 3.125mg tablet PO SCH ×2 (07:04→19:47)
[2021-05-02] MEDS: aspirin 81mg tab.chew PO SCH (07:04)
[2021-05-02] MEDS: CefTRIAXone/D5W-Rocephin 1gm 50 ML IV SCH (07:05)
[2021-05-02] MEDS: azithromycin/NS 500mg/250ml 250 ML IV SCH (07:05)
[2021-05-02] MEDS: docusate sod 100mg capsule PO SCH ×2 (08:00→19:47)
[2021-05-02] MEDS: apixaban 5mg tablet PO SCH ×2 (09:12→19:46)
[2021-05-02] MEDS: spironolactone 25 MG tablet PO SCH (09:12)
--- NOTE | 2021-05-02 17:48 | NUR ---
received pt's report from Qasim Corona from ED.
[2021-05-02 18:00] VITALS: BP 105/62
--- NOTE | 2021-05-02 18:52 | NUR ---
Problems reprioritized. Patient report given, questions answered & plan of care reviewed with Yohana TOMPKINS Traveler.
[2021-05-02 19:06] VITALS: BP 113/66
[2021-05-02] MEDS: lactobacillus rhamnosus 10,000 MMU CELLS/CAPSULE PO SCH (19:46)
[2021-05-02] MEDS ORDERED: temazepam 15mg capsule PO PRN (21:00)
[2021-05-02 22:00] VITALS: BP 105/53
[2021-05-02] MEDS: pravastatin 40mg tablet PO SCH (22:11)
[2021-05-03] VITALS (7 sets, daily range): BP systolic 98–114; BP diastolic 52–67
--- NOTE | 2021-05-03 06:11 | NUR ---
Patient in room PCU 3015. I have received report from LEDA Shelton and had the opportunity to ask questions and assume patient care.
[2021-05-03 07:03] LABS: BASOPHILS # (AUTO) 0.1 X10'3 (0-0.2); BASOPHILS % (AUTO) 1.7 % (0-1); EOSINOPHILS # (AUTO) 0.3 X10'3 (0-0.9); EOSINOPHILS % (AUTO) 3.5 % (0-6); HEMATOCRIT 35.7 % (42.0-52.0); HEMOGLOBIN 12.1 g/dl (14.0-17.9); LYMPHOCYTES # (AUTO) 1.8 X10'3 (1.1-4.8); LYMPHOCYTES % (AUTO) 21.2 % (21-51); MEAN CORPUSCULAR HEMOGLOBIN 31.5 PG (27.0-31.0); MEAN CORPUSCULAR HGB CONC 33.9 g/dL (33.0-36.5); MEAN CORPUSCULAR VOLUME 92.8 FL (78-98); MEAN PLATELET VOLUME 7.3 FL (7.4-10.4); MONOCYTES # (AUTO) 0.7 X10'3 (0-0.9); NEUTROPHILS # (AUTO) 5.3 X10'3 (1.8-7.7); NEUTROPHILS % (AUTO) 64.6 % (42-75); PLATELET COUNT 229 X10'3 (140-440); RED BLOOD COUNT 3.85 X10'6 (4.70-6.10); RED CELL DISTRIBUTION WIDTH 13.1 % (11.5-14.5); WHITE BLOOD COUNT 8.3 X10'3 (4.5-11.0)
[2021-05-03 07:16] LABS: ALANINE AMINOTRANSFERASE 37 U/L (12-78); ALBUMIN 2.9 G/DL (3.4-5.0); ALBUMIN/GLOBULIN RATIO 0.9 (1.1-1.5); ALKALINE PHOSPHATASE 40 IU/L (46-116); ANION GAP 7 (8-16); ASPARTATE AMINO TRANSFERASE 22 U/L (10-37); BILIRUBIN,TOTAL 0.6 MG/DL (0.1-1.0); BLOOD UREA NITROGEN 18 MG/DL (7-18); BUN/CREATININE RATIO 13.6 (5.4-32.0); CALCIUM 8.2 MG/DL (8.5-10.1); CHLORIDE 105 MMOL/L (99-107); CHOL/HDL RATIO 2.9 (0.00-4.99); CHOLESTEROL 112 MG/DL (0-200); CREATININE 1.32 MG/DL (0.60-1.10); GLUCOSE 86 MG/DL (70-104); HDL CHOLESTEROL 38 MG/DL (35-60); LDL CHOLESTEROL 56 MG/DL (50-100); POTASSIUM 3.7 MMOL/L (3.5-5.1); SODIUM 140 MMOL/L (135-145); TOTAL CARBON DIOXIDE 27.7 MMOL/L (24-32); TOTAL PROTEIN 6.3 G/DL (6.4-8.2); TRIGLYCERIDES 84 MG/DL (20-135); eGFR 52 ML/MIN
[2021-05-03] MEDS ORDERED: pneumococcal 23-VAL P-sac vacc 25 mcg/0.5ml vial IMVAC ONE (08:00)
[2021-05-03] MEDS: CefTRIAXone/D5W-Rocephin 1gm 50 ML IV SCH (09:19)
[2021-05-03] MEDS: azithromycin/NS 500mg/250ml 250 ML IV SCH (09:24)
[2021-05-03] MEDS: docusate sod 100mg capsule PO SCH ×2 (09:26→19:35)
[2021-05-03] MEDS: pantoprazole 40mg Tablet.DR PO SCH (09:26)
[2021-05-03] MEDS: furosemide 10 MG/1 ML 10ml inj IV SCH (09:26)
[2021-05-03] MEDS: aspirin 81mg tab.chew PO SCH (09:26)
[2021-05-03] MEDS: apixaban 5mg tablet PO SCH ×2 (09:27→19:36)
[2021-05-03] MEDS: lactobacillus rhamnosus 10,000 MMU CELLS/CAPSULE PO SCH ×2 (09:27→19:36)
[2021-05-03] MEDS: carVEDilol 3.125mg tablet PO SCH ×2 (09:27→19:37)
[2021-05-03] MEDS: spironolactone 25 MG tablet PO SCH (09:28)
[2021-05-03] MEDS: amiodarone 200mg tablet PO SCH (09:28)
--- NOTE | 2021-05-03 18:15 | NUR ---
Patient in room PCU 3015. I have received report from LEDA Cheng and had the opportunity to ask questions and assume patient care.
--- NOTE | 2021-05-03 18:24 | NUR ---
Problems reprioritized. Patient report given, questions answered & plan of care reviewed with LEDA Fontana. Pt laying in bed at change of shift. No signs of distress noted, all pt needs met at this time.
[2021-05-03] MEDS: pravastatin 40mg tablet PO SCH (19:36)
[2021-05-04 02:00] VITALS: BP 93/57
--- NOTE | 2021-05-04 03:02 | NUR ---
Pt. ambulated with nursing with FWW 600F.
--- NOTE | 2021-05-04 06:24 | NUR ---
Problems reprioritized. Patient report given, questions answered & plan of care reviewed with LEDA Frazier.
--- NOTE | 2021-05-04 06:37 | NUR ---
Patient in room PCU 3015. I have received report from luh lincoln and had the opportunity to ask questions and assume patient care.
[2021-05-04 06:54] VITALS: BP 102/57
[2021-05-04 06:59] LABS: BASOPHILS # (AUTO) 0.1 X10'3 (0-0.2); BASOPHILS % (AUTO) 1.1 % (0-1); EOSINOPHILS # (AUTO) 0.2 X10'3 (0-0.9); EOSINOPHILS % (AUTO) 2.7 % (0-6); HEMATOCRIT 34.6 % (42.0-52.0); LYMPHOCYTES # (AUTO) 1.8 X10'3 (1.1-4.8); LYMPHOCYTES % (AUTO) 21.1 % (21-51); MEAN CORPUSCULAR HEMOGLOBIN 31.7 PG (27.0-31.0); MEAN CORPUSCULAR HGB CONC 34.6 g/dL (33.0-36.5); MEAN CORPUSCULAR VOLUME 91.5 FL (78-98); MONOCYTES # (AUTO) 0.7 X10'3 (0-0.9); MONOCYTES % (AUTO) 8.6 % (2-12); NEUTROPHILS # (AUTO) 5.6 X10'3 (1.8-7.7); NEUTROPHILS % (AUTO) 66.5 % (42-75); PLATELET COUNT 226 X10'3 (140-440); RED BLOOD COUNT 3.78 X10'6 (4.70-6.10); RED CELL DISTRIBUTION WIDTH 12.9 % (11.5-14.5); WHITE BLOOD COUNT 8.5 X10'3 (4.5-11.0)
[2021-05-04 07:16] LABS: ALANINE AMINOTRANSFERASE 34 U/L (12-78); ALBUMIN 2.9 G/DL (3.4-5.0); ALBUMIN/GLOBULIN RATIO 0.9 (1.1-1.5); ALKALINE PHOSPHATASE 37 IU/L (46-116); ANION GAP 7 (8-16); ASPARTATE AMINO TRANSFERASE 20 U/L (10-37); BILIRUBIN,TOTAL 0.6 MG/DL (0.1-1.0); BLOOD UREA NITROGEN 16 MG/DL (7-18); BUN/CREATININE RATIO 12.8 (5.4-32.0); CALCIUM 7.9 MG/DL (8.5-10.1); CHLORIDE 104 MMOL/L (99-107); CREATININE 1.25 MG/DL (0.60-1.10); GLUCOSE 91 MG/DL (70-104); POTASSIUM 3.9 MMOL/L (3.5-5.1); SODIUM 138 MMOL/L (135-145); TOTAL CARBON DIOXIDE 27.4 MMOL/L (24-32); TOTAL PROTEIN 6.3 G/DL (6.4-8.2); eGFR 56 ML/MIN
[2021-05-04] MEDS: furosemide 10 MG/1 ML 10ml inj IV SCH (08:00)
[2021-05-04] MEDS: spironolactone 25 MG tablet PO SCH (08:00)
[2021-05-04] MEDS: carVEDilol 3.125mg tablet PO SCH (08:00)
[2021-05-04] MEDS: CefTRIAXone/D5W-Rocephin 1gm 50 ML IV SCH (08:35)
[2021-05-04] MEDS: aspirin 81mg tab.chew PO SCH (08:42)
[2021-05-04] MEDS: lactobacillus rhamnosus 10,000 MMU CELLS/CAPSULE PO SCH (08:42)
[2021-05-04] MEDS: apixaban 5mg tablet PO SCH (08:43)
[2021-05-04] MEDS: pantoprazole 40mg Tablet.DR PO SCH (08:43)
[2021-05-04] MEDS: docusate sod 100mg capsule PO SCH (08:43)
[2021-05-04] MEDS: amiodarone 200mg tablet PO SCH (08:43)
[2021-05-04] MEDS: azithromycin/NS 500mg/250ml 250 ML IV SCH (09:46)
[2021-05-04] MEDS ORDERED: IPRA3AMP9 NEB (10:53)
[2021-05-04] MEDS ORDERED: AMOX-419 PO (10:53)
[2021-05-04 11:00] VITALS: BP 113/71
--- NOTE | 2021-05-04 15:49 | NUR ---
Pt discharged in stable condition to home at 1545. belongings sent with pt. iv removed, pressure bandage applied. pt educated on discharge instructions, all questions answered/reviewed.
== END 2021-05-04 15:50 | disposition home health service (06) | DRG 189 ==
LOC: ER 01:10 → UNDOADMIN 04:41 → ED HOLD 04:41 → PCU 3S 18:08 → ED HOLD 18:08
PROVIDERS: ADMIT Family Medicine; ATTEND Family Medicine
DX: J96.01 Acute respiratory failure with hypoxia (principal); I50.23 Acute on chronic systolic (congestive) heart failure; N17.9 Acute kidney failure, unspecified; J44.1 Chronic obstructive pulmonary disease with (acute) exacerbation; R04.2 Hemoptysis; I42.0 Dilated cardiomyopathy; I11.0 Hypertensive heart disease with heart failure; E78.00 Pure hypercholesterolemia, unspecified; E78.5 Hyperlipidemia, unspecified; I25.82 Chronic total occlusion of coronary artery; I08.0 Rheumatic disorders of both mitral and aortic valves; I25.10 Atherosclerotic heart disease of native coronary artery without angina pectoris; R29.6 Repeated falls; Z20.822 Contact with and (suspected) exposure to COVID-19; I95.9 Hypotension, unspecified; R68.2 Dry mouth, unspecified; I48.91 Unspecified atrial fibrillation; K21.9 Gastro-esophageal reflux disease without esophagitis; N40.0 Benign prostatic hyperplasia without lower urinary tract symptoms; Z79.01 Long term (current) use of anticoagulants; Z91.81 History of falling; Z80.0 Family history of malignant neoplasm of digestive organs; Z82.0 Family history of epilepsy and other diseases of the nervous system; I25.2 Old myocardial infarction; Z82.3 Family history of stroke; Z95.0 Presence of cardiac pacemaker; Z88.8 Allergy status to other drugs, medicaments and biological substances; Z79.899 Other long term (current) drug therapy; Z79.82 Long term (current) use of aspirin; T46.4X5A Adverse effect of angiotensin-converting-enzyme inhibitors, initial encounter; Y92.230 Patient room in hospital as the place of occurrence of the external cause
CPT/HCPCS: 36415; 71045; 80053; 80061; 82550; 83036; 83690; 83735; 83880; 84100; 84484; 85025; 85379; 85610; 85730; 87081; 87635; 93005; 93306; 94760; 99285; G0378; J0456; J0696; J1940

== ENCOUNTER 2021-05-26 13:44 | Emergency (ER) | payer OTHER, MEDICARE, MEDICAID ==
[~2021-05-26] VITALS: Ht 177.8 cm; Wt 90.9 kg
[~2021-05-26 13:44] MED LIST changes: -FURO20TA4 PO; +FURO40TA4 PO; +IPRA3AMP9 NEB; -LISI5TAB22 PO; -POTA-188 PO; +POTA-207 PO
[2021-05-26 14:43] LABS: BASOPHILS # (AUTO) 0.1 X10'3 (0-0.2); BASOPHILS % (AUTO) 0.9 % (0-1); EOSINOPHILS # (AUTO) 0.2 X10'3 (0-0.9); EOSINOPHILS % (AUTO) 3.3 % (0-6); HEMATOCRIT 38.7 % (42.0-52.0); LYMPHOCYTES # (AUTO) 1.6 X10'3 (1.1-4.8); LYMPHOCYTES % (AUTO) 23.7 % (21-51); MEAN CORPUSCULAR HEMOGLOBIN 31.4 PG (27.0-31.0); MEAN CORPUSCULAR HGB CONC 33.5 g/dL (33.0-36.5); MEAN CORPUSCULAR VOLUME 93.6 FL (78-98); MEAN PLATELET VOLUME 7.3 FL (7.4-10.4); MONOCYTES # (AUTO) 0.6 X10'3 (0-0.9); MONOCYTES % (AUTO) 8.4 % (2-12); NEUTROPHILS # (AUTO) 4.3 X10'3 (1.8-7.7); NEUTROPHILS % (AUTO) 63.7 % (42-75); PLATELET COUNT 208 X10'3 (140-440); RED BLOOD COUNT 4.14 X10'6 (4.70-6.10); RED CELL DISTRIBUTION WIDTH 13.5 % (11.5-14.5); WHITE BLOOD COUNT 6.8 X10'3 (4.5-11.0)
[2021-05-26 14:58] LABS: ALANINE AMINOTRANSFERASE 63 U/L (12-78); ALBUMIN 3.7 G/DL (3.4-5.0); ALKALINE PHOSPHATASE 41 IU/L (46-116); ANION GAP 6 (8-16); ASPARTATE AMINO TRANSFERASE 41 U/L (10-37); BILIRUBIN,TOTAL 0.5 MG/DL (0.1-1.0); BLOOD UREA NITROGEN 18 MG/DL (7-18); BUN/CREATININE RATIO 14.2 (5.4-32.0); CALCIUM 8.6 MG/DL (8.5-10.1); CHLORIDE 103 MMOL/L (99-107); CREATININE 1.27 MG/DL (0.60-1.10); GLUCOSE 90 MG/DL (70-104); POTASSIUM 4.5 MMOL/L (3.5-5.1); SODIUM 137 MMOL/L (135-145); TOTAL CARBON DIOXIDE 28.3 MMOL/L (24-32); TOTAL PROTEIN 7.3 G/DL (6.4-8.2); eGFR 55 ML/MIN
[2021-05-26] MEDS ORDERED: PRED20TA PO (15:42)
[2021-05-26] MEDS ORDERED: CEPH250T PO (15:42)
[2021-05-26] MEDS ORDERED: DOXY100C77 PO (15:42)
[2021-05-26] MEDS ORDERED: ipratropium/albuterol 3ml nebule NEB ONE (15:45)
[2021-05-26] MEDS ORDERED: IPRA3AMP31 IH (16:57)
[2021-05-26 17:12] VITALS: BP 121/65
== END 2021-05-26 17:14 | disposition home or self-care (01) ==
LOC: ER 13:45
DX: J44.9 Chronic obstructive pulmonary disease, unspecified (principal); R19.02 Left upper quadrant abdominal swelling, mass and lump; R19.01 Right upper quadrant abdominal swelling, mass and lump; I25.10 Atherosclerotic heart disease of native coronary artery without angina pectoris; I11.0 Hypertensive heart disease with heart failure; I50.9 Heart failure, unspecified; E78.00 Pure hypercholesterolemia, unspecified; I25.2 Old myocardial infarction; K21.9 Gastro-esophageal reflux disease without esophagitis; N40.0 Benign prostatic hyperplasia without lower urinary tract symptoms; Z95.5 Presence of coronary angioplasty implant and graft; Z95.0 Presence of cardiac pacemaker; Z88.8 Allergy status to other drugs, medicaments and biological substances; Z79.899 Other long term (current) drug therapy; Z79.2 Long term (current) use of antibiotics
CPT/HCPCS: 36415; 71045; 80053; 83880; 84484; 85025; 93005; 94640; 94760; 99285

== ENCOUNTER 2021-05-30 18:05 | Emergency (ER) | payer OTHER, MEDICARE, MEDICAID ==
[~2021-05-30] VITALS: Ht 177.8 cm; Wt 90.9 kg
[~2021-05-30 18:05] MED LIST changes: +CEPH250T PO; +DOXY100C77 PO; +IPRA3AMP31 IH; +PRED20TA PO
[2021-05-30 19:01] LABS: EOSINOPHILS # (AUTO) 0.1 X10'3 (0-0.9); EOSINOPHILS % (AUTO) 1.2 % (0-6); HEMOGLOBIN 12.5 g/dl (14.0-17.9); MONOCYTES # (AUTO) 0.9 X10'3 (0-0.9); MONOCYTES % (AUTO) 8.2 % (2-12)
[2021-05-30 19:02] LABS: BASOPHILS # (AUTO) 0.1 X10'3 (0-0.2); BASOPHILS % (AUTO) 0.5 % (0-1); HEMATOCRIT 37.5 % (42.0-52.0); LYMPHOCYTES % (AUTO) 18.9 % (21-51); MEAN CORPUSCULAR HEMOGLOBIN 31.1 PG (27.0-31.0); MEAN CORPUSCULAR HGB CONC 33.4 g/dL (33.0-36.5); MEAN CORPUSCULAR VOLUME 93.1 FL (78-98); MEAN PLATELET VOLUME 7.2 FL (7.4-10.4); NEUTROPHILS # (AUTO) 7.5 X10'3 (1.8-7.7); NEUTROPHILS % (AUTO) 71.2 % (42-75); PLATELET COUNT 221 X10'3 (140-440); RED BLOOD COUNT 4.02 X10'6 (4.70-6.10); RED CELL DISTRIBUTION WIDTH 13.8 % (11.5-14.5); WHITE BLOOD COUNT 10.5 X10'3 (4.5-11.0)
[2021-05-30 19:13] LABS: ALANINE AMINOTRANSFERASE 44 U/L (12-78); ALBUMIN 3.6 G/DL (3.4-5.0); ALBUMIN/GLOBULIN RATIO 1.1 (1.1-1.5); ALKALINE PHOSPHATASE 34 IU/L (46-116); ANION GAP 10 (8-16); ASPARTATE AMINO TRANSFERASE 24 U/L (10-37); BILIRUBIN,TOTAL 0.6 MG/DL (0.1-1.0); BLOOD UREA NITROGEN 20 MG/DL (7-18); BUN/CREATININE RATIO 14.9 (5.4-32.0); CALCIUM 8.6 MG/DL (8.5-10.1); CHLORIDE 95 MMOL/L (99-107); CREATININE 1.34 MG/DL (0.60-1.10); GLUCOSE 92 MG/DL (70-104); POTASSIUM 3.5 MMOL/L (3.5-5.1); SODIUM 131 MMOL/L (135-145); TOTAL CARBON DIOXIDE 26.4 MMOL/L (24-32); eGFR 51 ML/MIN
--- NOTE | 2021-05-30 22:29 | NUR ---
ASSUMED CARE OF PT. PT ROOMED IN BED 11
[2021-05-30 22:41] LABS: D-DIMER 0.27 MG/L FEU (0-0.50)
[2021-05-31 00:55] VITALS: BP 124/74
== END 2021-05-31 01:05 | disposition home or self-care (01) ==
LOC: ER 18:06
DX: R06.02 Shortness of breath (principal); R68.2 Dry mouth, unspecified; I48.91 Unspecified atrial fibrillation; I25.10 Atherosclerotic heart disease of native coronary artery without angina pectoris; I11.0 Hypertensive heart disease with heart failure; I50.9 Heart failure, unspecified; E78.00 Pure hypercholesterolemia, unspecified; I25.2 Old myocardial infarction; J44.9 Chronic obstructive pulmonary disease, unspecified; K21.9 Gastro-esophageal reflux disease without esophagitis; Z95.0 Presence of cardiac pacemaker; Z98.890 Other specified postprocedural states; Z88.8 Allergy status to other drugs, medicaments and biological substances; Z79.82 Long term (current) use of aspirin; Z79.2 Long term (current) use of antibiotics; Z79.899 Other long term (current) drug therapy
CPT/HCPCS: 36415; 71045; 80053; 83880; 84484; 85025; 85379; 93005; 99285

== ENCOUNTER 2021-06-26 16:41 | Emergency (ER) | payer OTHER, MEDICARE, MEDICAID ==
[~2021-06-26] VITALS: Ht 177.8 cm; Wt 87.7 kg
[~2021-06-26 16:41] MED LIST changes: -CEPH250T PO; -DOXY100C77 PO; -PRED20TA PO
[2021-06-26 17:01] VITALS: BP 118/72
[2021-06-26] MEDS ORDERED: furosemide 20MG tablet PO ONE (18:35)
== END 2021-06-26 19:19 | disposition home or self-care (01) ==
LOC: ER 16:42
DX: I11.0 Hypertensive heart disease with heart failure (principal); I50.9 Heart failure, unspecified; Z20.822 Contact with and (suspected) exposure to COVID-19; R05.9 Cough, unspecified; R06.02 Shortness of breath; R07.89 Other chest pain; R53.1 Weakness; I48.91 Unspecified atrial fibrillation; I25.10 Atherosclerotic heart disease of native coronary artery without angina pectoris; E78.00 Pure hypercholesterolemia, unspecified; I25.2 Old myocardial infarction; J44.9 Chronic obstructive pulmonary disease, unspecified; K21.9 Gastro-esophageal reflux disease without esophagitis; Z95.0 Presence of cardiac pacemaker; Z98.890 Other specified postprocedural states; Z88.8 Allergy status to other drugs, medicaments and biological substances; Z79.82 Long term (current) use of aspirin; Z79.899 Other long term (current) drug therapy
CPT/HCPCS: 71045; 87502; 87503; 87635; 99284; C9803

== ENCOUNTER 2021-06-28 22:42 | Emergency (ER) | payer OTHER, MEDICARE, MEDICAID ==
[~2021-06-28] VITALS: Ht 177.8 cm; Wt 90.0 kg
[2021-06-28 23:26] LABS: BASOPHILS # (AUTO) 0.1 X10'3 (0-0.2); BASOPHILS % (AUTO) 1.2 % (0-1); EOSINOPHILS # (AUTO) 0.9 X10'3 (0-0.9); EOSINOPHILS % (AUTO) 9.7 % (0-6); HEMATOCRIT 35.8 % (42.0-52.0); HEMOGLOBIN 12.6 g/dl (14.0-17.9); LYMPHOCYTES # (AUTO) 1.4 X10'3 (1.1-4.8); LYMPHOCYTES % (AUTO) 15.7 % (21-51); MEAN CORPUSCULAR HEMOGLOBIN 31.7 PG (27.0-31.0); MEAN CORPUSCULAR HGB CONC 35.1 g/dL (33.0-36.5); MEAN CORPUSCULAR VOLUME 90.3 FL (78-98); MEAN PLATELET VOLUME 6.7 FL (7.4-10.4); MONOCYTES # (AUTO) 0.9 X10'3 (0-0.9); MONOCYTES % (AUTO) 9.7 % (2-12); NEUTROPHILS # (AUTO) 5.8 X10'3 (1.8-7.7); NEUTROPHILS % (AUTO) 63.7 % (42-75); PLATELET COUNT 240 X10'3 (140-440); RED BLOOD COUNT 3.97 X10'6 (4.70-6.10); RED CELL DISTRIBUTION WIDTH 13.3 % (11.5-14.5); WHITE BLOOD COUNT 9.2 X10'3 (4.5-11.0)
[2021-06-28 23:58] LABS: ALANINE AMINOTRANSFERASE 38 U/L (12-78); ALBUMIN 3.2 G/DL (3.4-5.0); ALBUMIN/GLOBULIN RATIO 0.9 (1.1-1.5); ALKALINE PHOSPHATASE 48 IU/L (46-116); ANION GAP 8 (8-16); ASPARTATE AMINO TRANSFERASE 36 U/L (10-37); BILIRUBIN,TOTAL 0.6 MG/DL (0.1-1.0); BLOOD UREA NITROGEN 17 MG/DL (7-18); BUN/CREATININE RATIO 12.5 (5.4-32.0); CALCIUM 8.4 MG/DL (8.5-10.1); CHLORIDE 96 MMOL/L (99-107); CREATININE 1.36 MG/DL (0.60-1.10); GLUCOSE 99 MG/DL (70-104); POTASSIUM 4.2 MMOL/L (3.5-5.1); SODIUM 130 MMOL/L (135-145); TOTAL PROTEIN 6.8 G/DL (6.4-8.2); eGFR 50 ML/MIN
[2021-06-29] MEDS ORDERED: iohexol 350MG/ML 100ml bottle IV ONE ×2 (01:19→02:00)
[2021-06-29] MEDS ORDERED: DOXYCYCLINE 100MG CAPSULE PO STA (03:57)
[2021-06-29 05:05] VITALS: BP 138/87
== END 2021-06-29 05:07 | disposition home or self-care (01) ==
LOC: ER 22:42
DX: J18.9 Pneumonia, unspecified organism (principal); R05.9 Cough, unspecified; R06.02 Shortness of breath; I48.91 Unspecified atrial fibrillation; I11.0 Hypertensive heart disease with heart failure; I50.9 Heart failure, unspecified; I25.10 Atherosclerotic heart disease of native coronary artery without angina pectoris; E78.00 Pure hypercholesterolemia, unspecified; I25.2 Old myocardial infarction; J44.9 Chronic obstructive pulmonary disease, unspecified; K21.9 Gastro-esophageal reflux disease without esophagitis; Z95.0 Presence of cardiac pacemaker; Z98.890 Other specified postprocedural states; Z88.8 Allergy status to other drugs, medicaments and biological substances; Z79.82 Long term (current) use of aspirin; Z79.899 Other long term (current) drug therapy
CPT/HCPCS: 36415; 71046; 71275; 80053; 83880; 85025; 93005; 99285; Q9967

== ENCOUNTER 2021-07-01 01:57 | Emergency (ER) | payer OTHER, MEDICARE, MEDICAID ==
[~2021-07-01] VITALS: Ht 172.7 cm; Wt 88.6 kg
[2021-07-01 02:09] VITALS: BP 119/65
== END 2021-07-01 04:30 | disposition home or self-care (01) ==
LOC: ER 01:58
DX: R05.3 Chronic cough (principal); J44.9 Chronic obstructive pulmonary disease, unspecified; I48.91 Unspecified atrial fibrillation; I25.10 Atherosclerotic heart disease of native coronary artery without angina pectoris; I11.0 Hypertensive heart disease with heart failure; I50.9 Heart failure, unspecified; E78.00 Pure hypercholesterolemia, unspecified; I25.2 Old myocardial infarction; K21.9 Gastro-esophageal reflux disease without esophagitis; N40.0 Benign prostatic hyperplasia without lower urinary tract symptoms; Z88.8 Allergy status to other drugs, medicaments and biological substances; Z79.82 Long term (current) use of aspirin; Z79.899 Other long term (current) drug therapy; Z95.5 Presence of coronary angioplasty implant and graft; Z95.0 Presence of cardiac pacemaker
CPT/HCPCS: 71045; 99283

== ENCOUNTER 2021-07-06 07:24 | Inpatient (IN) | payer OTHER, MEDICARE, MEDICAID ==
[~2021-07-06] VITALS: Ht 177.8 cm; Wt 86.4 kg
[2021-07-06] VITALS (13 sets, daily range): BP systolic 91–115; BP diastolic 44–72
--- NOTE | 2021-07-06 07:32 | NUR ---
PT PREPPED AND READY FOR OPTICAL COATING TECHNICIAN. AWAITING ACADEMIC ADVISEMENT DIRECTOR RESPONSE PER ER .
--- NOTE | 2021-07-06 07:40 | NUR ---
EKG SENT TO DR. MICHELLE FOR REVIEW. PT STABLIZED IN ER, PT REPORTS NO CHEST PAIN AT THIS TIME, VITALS WNL, PT ON REGIONAL REHABILITATION DIRECTOR.
[2021-07-06 07:42] LABS: BASOPHILS # (AUTO) 0.1 X10'3 (0-0.2); BASOPHILS % (AUTO) 0.9 % (0-1); EOSINOPHILS # (AUTO) 0.9 X10'3 (0-0.9); EOSINOPHILS % (AUTO) 9.5 % (0-6); HEMATOCRIT 35.8 % (42.0-52.0); HEMOGLOBIN 12.4 g/dl (14.0-17.9); LYMPHOCYTES # (AUTO) 1.7 X10'3 (1.1-4.8); LYMPHOCYTES % (AUTO) 18.9 % (21-51); MEAN CORPUSCULAR HEMOGLOBIN 31.3 PG (27.0-31.0); MEAN CORPUSCULAR HGB CONC 34.6 g/dL (33.0-36.5); MEAN CORPUSCULAR VOLUME 90.6 FL (78-98); MEAN PLATELET VOLUME 6.7 FL (7.4-10.4); MONOCYTES # (AUTO) 0.8 X10'3 (0-0.9); MONOCYTES % (AUTO) 9.2 % (2-12); NEUTROPHILS # (AUTO) 5.6 X10'3 (1.8-7.7); NEUTROPHILS % (AUTO) 61.5 % (42-75); PLATELET COUNT 247 X10'3 (140-440); RED BLOOD COUNT 3.95 X10'6 (4.70-6.10); RED CELL DISTRIBUTION WIDTH 13.6 % (11.5-14.5); WHITE BLOOD COUNT 9.2 X10'3 (4.5-11.0)
--- NOTE | 2021-07-06 07:52 | NUR ---
PT CONT TO DENY CHEST PAIN. AWAKE AND ALERT, SITTING UPRIGHT.
[2021-07-06 07:58] LABS: ALANINE AMINOTRANSFERASE 35 U/L (12-78); ALBUMIN 3.2 G/DL (3.4-5.0); ALBUMIN/GLOBULIN RATIO 0.8 (1.1-1.5); ALKALINE PHOSPHATASE 41 IU/L (46-116); ANION GAP 9 (8-16); ASPARTATE AMINO TRANSFERASE 28 U/L (10-37); BILIRUBIN,TOTAL 0.6 MG/DL (0.1-1.0); BLOOD UREA NITROGEN 19 MG/DL (7-18); BUN/CREATININE RATIO 13.1 (5.4-32.0); CALCIUM 8.4 MG/DL (8.5-10.1); CHLORIDE 101 MMOL/L (99-107); CREATININE 1.45 MG/DL (0.60-1.10); GLUCOSE 101 MG/DL (70-104); POTASSIUM 3.8 MMOL/L (3.5-5.1); SODIUM 137 MMOL/L (135-145); TOTAL CARBON DIOXIDE 27.3 MMOL/L (24-32); TOTAL PROTEIN 7.1 G/DL (6.4-8.2); eGFR 47 ML/MIN
--- NOTE | 2021-07-06 08:07 | NUR ---
DR. MCGARRY ON FOR CARDIOLOGY, CURRENTLY DISCUSSING PT W/ ER MD. CLEMENTS
--- NOTE | 2021-07-06 08:09 | NUR ---
REPORT GIVEN LEDA HAWTHORNE
[2021-07-06] MEDS ORDERED: aspirin 81mg tab.chew PO ONE (08:45)
--- NOTE | 2021-07-06 08:45 | NUR ---
Dr. Willett at bedside
[2021-07-06] MEDS ORDERED: midazolam 1 mg/ML 2ml injection ONE ×2 (09:19→09:51)
[2021-07-06] MEDS ORDERED: fentaNYL/PF 50MCG/1 ML 2ML syringe ONE (09:19)
[2021-07-06] MEDS ORDERED: verapamil 2.5 mg/ml inj IV ONE (09:38)
[2021-07-06] MEDS ORDERED: heparin 1,000unit/ml 10ml vial 10 ML ONE (09:49)
[2021-07-06] MEDS ORDERED: LIDOcaine 1% (10mg/ml)w/preservative injection 20ml MDV ONE (10:03)
[2021-07-06] MEDS ORDERED: nitroGLYCERIN-Tridil 50MG/D5W 250 ML IV ONE (10:03)
[2021-07-06] MEDS ORDERED: iohexol 350 MG/ML 50ML vial IV ONE (10:06)
[2021-07-06] MEDS ORDERED: iohexol 350 MG/1 ML 200ml bottle ONE (10:14)
[2021-07-06] MEDS ORDERED: nitroGLYCERIN 0.4mg SUBLingual tab SL PRN (12:55)
[2021-07-06] MEDS ORDERED: IPRA3AMP31 IH (12:56)
[2021-07-06] MEDS ORDERED: albuterol 2.5 MG/3 ML nebule NEB PRN (13:20)
[2021-07-06] MEDS ORDERED: acetaminophen 325mg tablet PO PRN ×2 (13:25)
[2021-07-06] MEDS ORDERED: OXAZEpam 15mg capsule PO PRN (13:25)
[2021-07-06] MEDS ORDERED: HYDROcodone/acetaminophen 10/325mg tab PO PRN ×2 (13:25)
[2021-07-06] MEDS ORDERED: magnesium hydroxide 30ml (MOM) UD suspension PO PRN (13:25)
[2021-07-06] MEDS: normal saline 1000ml 1,000 ML IV SCH ×3 (13:35→23:35)
[2021-07-06] MEDS ORDERED: nitroGLYCERIN 0.2mg/hour patch TD SCH (14:00)
[2021-07-06] MEDS: ipratropium/albuterol 3ml nebule IH PRN ×2 (15:55→21:38)
[2021-07-06] MEDS ORDERED: bumetanide 0.25mg/ml 4ml vial IV ONE (16:00)
--- NOTE | 2021-07-06 18:29 | NUR ---
Problems reprioritized. Patient report given, questions answered & plan of care reviewed with Leoncio TOMPKINS.
[2021-07-06] MEDS: carVEDilol 3.125mg tablet PO SCH (19:27)
[2021-07-06] MEDS: docusate sod 100mg capsule PO SCH (19:27)
[2021-07-06] MEDS: NYSTATIN CREAM - 30GM TUBE TP SCH (19:27)
[2021-07-06] MEDS ORDERED: pravastatin 40mg tablet PO SCH (21:00)
--- NOTE | 2021-07-06 21:47 | NUR ---
Pt is an 81 yo male, admitted 07/06/2021, full code, Allergy to Propranolol, No isolation, COVID NEG. Pt is from home c/o chest discomfort/ pain, to ER via EMS, to dental laboratory assistant for cath, Cath was clean. Pt to ICU post op. Currently pt is afebrile, AAO times 4, moves all extremities, follows all commands, has tremors. 07/06/2021 S/P heart cath, cath was subsequently clean but shows EF 20%. Access right wrist. Right and left wrist weak pulse, hand warm, good cap refill. Free from hematoma. HR paced 60, permanent pacer, BP 115/57, weak pulses, no edema. IVF NS 30/ hr. infusing via LAC, f/p. RR 27 PO 94%, + Bronchial/barking cough, COVID-, breath sounds, diminished, equal, symmetrical, non labored. However pt will have episodes of heavy coughing and needs respiratory treatment. Hypoactive bowel sounds, soft, non tender, non distended, Cardiac diet well tolerated, Protonix for GI prophylaxis. Voids freely via urinal. Pt was given Bumex earlier previous shift, thus far pt has voided 1900 CYU. Skin intact. Continue to monitor. Addendum: 07/07/21 at 0140 by Leoncio Perez RN pt being transferred to [facility] B called report to Yumiko TOMPKINS at ext [phone]. Opportunity for question/ answers was provided no questions asked. Pt prepared for transport.
[2021-07-07] VITALS: BP 106/49
[2021-07-07 01:00] VITALS: BP 110/57
[2021-07-07 02:00] VITALS: BP 115/55
--- NOTE | 2021-07-07 02:00 | NUR ---
Patient arrived to floor from ICU. Patient alert and oriented, vitals are stable, bilateral pedal pulse + 2 palpitated. Patient denies any pain at this time.
[2021-07-07 05:59] LABS: BASOPHILS # (AUTO) 0.1 X10'3 (0-0.2); BASOPHILS % (AUTO) 0.9 % (0-1); EOSINOPHILS % (AUTO) 9.9 % (0-6); HEMATOCRIT 34.8 % (42.0-52.0); LYMPHOCYTES # (AUTO) 1.2 X10'3 (1.1-4.8); MEAN CORPUSCULAR HEMOGLOBIN 31.4 PG (27.0-31.0); MEAN CORPUSCULAR HGB CONC 34.4 g/dL (33.0-36.5); MEAN CORPUSCULAR VOLUME 91.2 FL (78-98); MEAN PLATELET VOLUME 7.2 FL (7.4-10.4); MONOCYTES % (AUTO) 10.1 % (2-12); NEUTROPHILS # (AUTO) 6.7 X10'3 (1.8-7.7); NEUTROPHILS % (AUTO) 67.1 % (42-75); PLATELET COUNT 229 X10'3 (140-440); RED BLOOD COUNT 3.82 X10'6 (4.70-6.10); RED CELL DISTRIBUTION WIDTH 13.6 % (11.5-14.5); WHITE BLOOD COUNT 9.9 X10'3 (4.5-11.0)
[2021-07-07 06:00] VITALS: BP 101/51
[2021-07-07 06:09] LABS: ALBUMIN 2.8 G/DL (3.4-5.0); ANION GAP 7 (8-16); BLOOD UREA NITROGEN 17 MG/DL (7-18); BUN/CREATININE RATIO 12.7 (5.4-32.0); CALCIUM 8.5 MG/DL (8.5-10.1); CHLORIDE 106 MMOL/L (99-107); CREATININE 1.34 MG/DL (0.60-1.10); GLUCOSE 91 MG/DL (70-104); POTASSIUM 3.7 MMOL/L (3.5-5.1); SODIUM 140 MMOL/L (135-145); TOTAL CARBON DIOXIDE 27.2 MMOL/L (24-32); eGFR 51 ML/MIN
--- NOTE | 2021-07-07 06:17 | NUR ---
Problems reprioritized. Patient report given, questions answered & plan of care reviewed with Renetta TOMPKINS.
--- NOTE | 2021-07-07 06:56 | NUR ---
Patient in room PCU 3015. I have received report from Yumiko TOMPKINS and had the opportunity to ask questions and assume patient care.
[2021-07-07] MEDS ORDERED: pantoprazole 40mg Tablet.DR PO SCH (07:30)
[2021-07-07] MEDS: carVEDilol 3.125mg tablet PO SCH (08:00)
[2021-07-07] MEDS ORDERED: potassium Cl 20 mEq SR tablet PO SCH (08:00)
[2021-07-07] MEDS ORDERED: cholecalciferol (vitamin D3) 1,000 unit (25mcg) tablet PO SCH (08:00)
[2021-07-07] MEDS: NYSTATIN CREAM - 30GM TUBE TP SCH (08:00)
[2021-07-07] MEDS ORDERED: multivitamins, therapeutics tablet PO SCH (08:00)
[2021-07-07] MEDS ORDERED: amiodarone 200mg tablet PO SCH (08:00)
[2021-07-07] MEDS ORDERED: OMEGA-3/DHA/EPA/FISH OIL 1 EACH CAPSULE.DR PO SCH (08:00)
[2021-07-07] MEDS ORDERED: furosemide 40mg tablet PO SCH (08:00)
[2021-07-07] MEDS ORDERED: spironolactone 25 MG tablet PO SCH (08:00)
[2021-07-07] MEDS: docusate sod 100mg capsule PO SCH (08:20)
[2021-07-07 11:00] VITALS: BP 116/50
[2021-07-07] MEDS ORDERED: PANT-47 PO (12:49)
--- NOTE | 2021-07-07 13:27 | NUR ---
O2 Sat at rest on room air:92__% If below 89%: Recovery O2 Sat at rest on ___LPM:___%:___% via (mask/nasal cannula, etc..) No further documentation is necessary. If O2 Sat did not drop below 89% on room air,ambulate patient on room air. O2 Sat while ambulating on room air:__91_% Recovery O2 Sat while ambulating on ___LPM:___% No further documentation is necessary. If patient does not drop below 89% while ambulating, he/she does not qualify for home O2.
--- NOTE | 2021-07-07 14:10 | NUR ---
discharge instructions was given and explained to patient prior to discharge. iv access discontinued with cannula tip complete and intact. pt tolerated the procedure well. pt wheeled down to main entrance and discharged with family.
[2021-07-08] MEDS ORDERED: AZIT-83 PO (15:17)
[2021-07-08] MEDS ORDERED: FLUT1DIS INH (15:18)
== END 2021-07-07 14:33 | disposition home or self-care (01) | DRG 287 ==
LOC: ER 07:25 → CICU 2S 12:58 → OBSVTOIN 20:39 → PCU 3S 07-07 02:00
PROVIDERS: ADMIT Internal Medicine Cardiovascular Disease; ATTEND Internal Medicine Cardiovascular Disease
PROC: 4A023N7 Measurement of Cardiac Sampling and Pressure, Left Heart, Percutaneous Approach (ICD-10-PCS; principal; 2021-07-06)
PROC: B2111ZZ Fluoroscopy of Multiple Coronary Arteries using Low Osmolar Contrast (ICD-10-PCS; 2021-07-06)
DX: R07.9 Chest pain, unspecified (principal); I42.0 Dilated cardiomyopathy; I13.0 Hypertensive heart and chronic kidney disease with heart failure and stage 1 through stage 4 chronic kidney disease, or unspecified chronic kidney disease; E78.00 Pure hypercholesterolemia, unspecified; I25.10 Atherosclerotic heart disease of native coronary artery without angina pectoris; I44.7 Left bundle-branch block, unspecified; I48.91 Unspecified atrial fibrillation; I50.9 Heart failure, unspecified; J44.9 Chronic obstructive pulmonary disease, unspecified; K21.9 Gastro-esophageal reflux disease without esophagitis; N18.9 Chronic kidney disease, unspecified; N40.0 Benign prostatic hyperplasia without lower urinary tract symptoms; Z20.822 Contact with and (suspected) exposure to COVID-19; Z80.0 Family history of malignant neoplasm of digestive organs; I25.2 Old myocardial infarction; Z86.19 Personal history of other infectious and parasitic diseases; Z95.0 Presence of cardiac pacemaker; Z88.8 Allergy status to other drugs, medicaments and biological substances; Z81.8 Family history of other mental and behavioral disorders; Z82.3 Family history of stroke
CPT/HCPCS: 36415; 71045; 80048; 80053; 83880; 84484; 85025; 87081; 87635; 93005; 93458; 94640; 94760; 96374; 99152; 99153; 99285; A4620; A5120; A6258; C1769; C1894; C9803; G0378; J1644; J2250; J3010; J3490; J7030; Q9967

== ENCOUNTER 2021-07-08 11:16 | Emergency (ER) | payer OTHER, MEDICARE, MEDICAID ==
[~2021-07-08] VITALS: Ht 177.8 cm; Wt 86.4 kg
[~2021-07-08 11:16] MED LIST changes: +PANT-47 PO
[2021-07-08 11:38] VITALS: BP 102/61
[2021-07-08] MEDS ORDERED: ALBUTEROL INHALER 1 PUFF/90 MCG INHALER IH PRN (13:35)
[2021-07-08] MEDS ORDERED: AZIT-83 PO (15:17)
[2021-07-08] MEDS ORDERED: FLUT1DIS INH (15:18)
== END 2021-07-08 15:37 | disposition home or self-care (01) ==
LOC: ER 11:17
DX: J44.1 Chronic obstructive pulmonary disease with (acute) exacerbation (principal); I48.91 Unspecified atrial fibrillation; I25.10 Atherosclerotic heart disease of native coronary artery without angina pectoris; I11.0 Hypertensive heart disease with heart failure; I50.9 Heart failure, unspecified; E78.00 Pure hypercholesterolemia, unspecified; I25.2 Old myocardial infarction; J44.9 Chronic obstructive pulmonary disease, unspecified; K21.9 Gastro-esophageal reflux disease without esophagitis; N40.0 Benign prostatic hyperplasia without lower urinary tract symptoms; Z95.5 Presence of coronary angioplasty implant and graft; Z95.0 Presence of cardiac pacemaker; Z88.8 Allergy status to other drugs, medicaments and biological substances; Z79.82 Long term (current) use of aspirin; Z79.2 Long term (current) use of antibiotics; Z79.899 Other long term (current) drug therapy
CPT/HCPCS: 71045; 99283

== ENCOUNTER 2021-07-12 03:47 | Emergency (ER) | payer OTHER, MEDICARE, MEDICAID ==
[~2021-07-12] VITALS: Ht 177.8 cm; Wt 95.0 kg
[~2021-07-12 03:47] MED LIST changes: +AZIT-83 PO; +FLUT1DIS INH; -IPRA3AMP9 NEB
[2021-07-12 05:26] LABS: BASOPHILS # (AUTO) 0.1 X10'3 (0-0.2); BASOPHILS % (AUTO) 1.3 % (0-1); EOSINOPHILS # (AUTO) 0.7 X10'3 (0-0.9); EOSINOPHILS % (AUTO) 8.6 % (0-6); HEMATOCRIT 34.9 % (42.0-52.0); HEMOGLOBIN 11.7 g/dl (14.0-17.9); LYMPHOCYTES # (AUTO) 1.6 X10'3 (1.1-4.8); LYMPHOCYTES % (AUTO) 19.5 % (21-51); MEAN CORPUSCULAR HEMOGLOBIN 30.3 PG (27.0-31.0); MEAN CORPUSCULAR HGB CONC 33.6 g/dL (33.0-36.5); MEAN CORPUSCULAR VOLUME 90.3 FL (78-98); MEAN PLATELET VOLUME 7.3 FL (7.4-10.4); MONOCYTES # (AUTO) 0.9 X10'3 (0-0.9); MONOCYTES % (AUTO) 10.7 % (2-12); NEUTROPHILS # (AUTO) 4.8 X10'3 (1.8-7.7); NEUTROPHILS % (AUTO) 59.9 % (42-75); PLATELET COUNT 221 X10'3 (140-440); RED BLOOD COUNT 3.86 X10'6 (4.70-6.10); RED CELL DISTRIBUTION WIDTH 13.7 % (11.5-14.5); WHITE BLOOD COUNT 8.1 X10'3 (4.5-11.0)
[2021-07-12 05:35] LABS: D-DIMER 0.32 MG/L FEU (0-0.50)
[2021-07-12 05:37] LABS: ALANINE AMINOTRANSFERASE 38 U/L (12-78); ALBUMIN/GLOBULIN RATIO 0.9 (1.1-1.5); ALKALINE PHOSPHATASE 42 IU/L (46-116); ANION GAP 10 (8-16); ASPARTATE AMINO TRANSFERASE 34 U/L (10-37); BILIRUBIN,TOTAL 0.4 MG/DL (0.1-1.0); BLOOD UREA NITROGEN 20 MG/DL (7-18); BUN/CREATININE RATIO 13.6 (5.4-32.0); CALCIUM 8.7 MG/DL (8.5-10.1); CHLORIDE 106 MMOL/L (99-107); CREATININE 1.47 MG/DL (0.60-1.10); GLUCOSE 87 MG/DL (70-104); SODIUM 143 MMOL/L (135-145); TOTAL CARBON DIOXIDE 27.1 MMOL/L (24-32); TOTAL PROTEIN 6.5 G/DL (6.4-8.2); eGFR 46 ML/MIN
[2021-07-12 05:45] LABS: MAGNESIUM 2.2 MG/DL (1.5-2.4)
[2021-07-12] MEDS ORDERED: ipratropium/albuterol 3ml nebule NEB ONE (06:05)
[2021-07-12] MEDS ORDERED: furosemide 10 MG/1 ML 10ml inj IV ONE (06:05)
--- NOTE | 2021-07-12 06:28 | NUR ---
Report received from LEDA López. Patient sitting up in bed coughing and expectorating yellow sputum. RT paged to give nebulizer treatment before discharge. Patient states his granddaughter will pick him up.
[2021-07-12 07:38] VITALS: BP 105/56
== END 2021-07-12 07:43 | disposition home or self-care (01) ==
LOC: ER 03:48
DX: R60.0 Localized edema (principal); Z20.822 Contact with and (suspected) exposure to COVID-19; R04.2 Hemoptysis; R50.9 Fever, unspecified; E78.00 Pure hypercholesterolemia, unspecified; I25.2 Old myocardial infarction; J44.9 Chronic obstructive pulmonary disease, unspecified; I48.91 Unspecified atrial fibrillation; I11.0 Hypertensive heart disease with heart failure; I50.9 Heart failure, unspecified; K21.9 Gastro-esophageal reflux disease without esophagitis; N40.0 Benign prostatic hyperplasia without lower urinary tract symptoms; Z95.5 Presence of coronary angioplasty implant and graft; Z95.0 Presence of cardiac pacemaker; Z88.8 Allergy status to other drugs, medicaments and biological substances; Z79.82 Long term (current) use of aspirin; Z79.2 Long term (current) use of antibiotics; Z79.899 Other long term (current) drug therapy; Z79.01 Long term (current) use of anticoagulants
CPT/HCPCS: 36415; 71045; 80053; 83735; 83880; 84484; 85025; 85379; 85610; 87635; 93005; 94640; 96374; 99285; C9803; J1940; 94760

== ENCOUNTER 2021-08-13 09:55 | Emergency (ER) | payer OTHER, MEDICARE, MEDICAID ==
[~2021-08-13] VITALS: Ht 177.8 cm; Wt 90.5 kg
[~2021-08-13 09:55] MED LIST changes: -AZIT-83 PO
[2021-08-13 10:39] LABS: BASOPHILS # (AUTO) 0.1 X10'3 (0-0.2); BASOPHILS % (AUTO) 0.9 % (0-1); EOSINOPHILS # (AUTO) 0.2 X10'3 (0-0.9); EOSINOPHILS % (AUTO) 2.5 % (0-6); HEMATOCRIT 35.4 % (42.0-52.0); HEMOGLOBIN 11.7 g/dl (14.0-17.9); LYMPHOCYTES # (AUTO) 1.7 X10'3 (1.1-4.8); LYMPHOCYTES % (AUTO) 19.5 % (21-51); MEAN CORPUSCULAR HEMOGLOBIN 30.5 PG (27.0-31.0); MEAN CORPUSCULAR HGB CONC 33.1 g/dL (33.0-36.5); MEAN CORPUSCULAR VOLUME 92.3 FL (78-98); MEAN PLATELET VOLUME 7.2 FL (7.4-10.4); MONOCYTES # (AUTO) 0.5 X10'3 (0-0.9); MONOCYTES % (AUTO) 6.1 % (2-12); NEUTROPHILS # (AUTO) 6.2 X10'3 (1.8-7.7); PLATELET COUNT 173 X10'3 (140-440); RED BLOOD COUNT 3.83 X10'6 (4.70-6.10); RED CELL DISTRIBUTION WIDTH 14.4 % (11.5-14.5); WHITE BLOOD COUNT 8.7 X10'3 (4.5-11.0)
[2021-08-13 11:05] LABS: ALANINE AMINOTRANSFERASE 108 U/L (12-78); ALBUMIN 3.3 G/DL (3.4-5.0); ALBUMIN/GLOBULIN RATIO 1.1 (1.1-1.5); ALKALINE PHOSPHATASE 47 IU/L (46-116); ANION GAP 11 (8-16); ASPARTATE AMINO TRANSFERASE 73 U/L (10-37); BILIRUBIN,TOTAL 0.7 MG/DL (0.1-1.0); BLOOD UREA NITROGEN 21 MG/DL (7-18); BUN/CREATININE RATIO 17.9 (5.4-32.0); CALCIUM 8.4 MG/DL (8.5-10.1); CHLORIDE 103 MMOL/L (99-107); CREATININE 1.17 MG/DL (0.60-1.10); GLUCOSE 87 MG/DL (70-104); POTASSIUM 4.3 MMOL/L (3.5-5.1); SODIUM 140 MMOL/L (135-145); TOTAL CARBON DIOXIDE 26.5 MMOL/L (24-32); TOTAL PROTEIN 6.4 G/DL (6.4-8.2); eGFR 60 ML/MIN
--- NOTE | 2021-08-13 13:22 | NUR ---
called for eamon ,pt sister is going to supervisor picking crew pt in 30 mins.
[2021-08-13 13:59] VITALS: BP 124/79
== END 2021-08-13 14:00 | disposition home or self-care (01) ==
LOC: ER 09:56
DX: I11.0 Hypertensive heart disease with heart failure (principal); I50.9 Heart failure, unspecified; R06.02 Shortness of breath; R07.89 Other chest pain; I25.10 Atherosclerotic heart disease of native coronary artery without angina pectoris; I48.91 Unspecified atrial fibrillation; E78.00 Pure hypercholesterolemia, unspecified; I25.2 Old myocardial infarction; J44.9 Chronic obstructive pulmonary disease, unspecified; Z95.0 Presence of cardiac pacemaker; Z98.890 Other specified postprocedural states; Z88.8 Allergy status to other drugs, medicaments and biological substances; Z79.82 Long term (current) use of aspirin; Z79.899 Other long term (current) drug therapy
CPT/HCPCS: 36415; 71045; 80053; 83880; 84484; 85025; 93005; 99285

== ENCOUNTER 2021-09-19 04:40 | Inpatient (IN) | payer OTHER, MEDICARE, MEDICAID ==
[~2021-09-19] VITALS: Ht 177.8 cm; Wt 93.0 kg
[2021-09-19] VITALS (8 sets, daily range): BP systolic 100–117; BP diastolic 53–63
--- NOTE | 2021-09-19 04:48 | NUR ---
pt placed on 6L NC. satting at 93%
[2021-09-19] MEDS ORDERED: ipratropium/albuterol 3ml nebule NEB ONE (05:10)
--- NOTE | 2021-09-19 05:27 | NUR ---
RT WILL GIVE BREATHING TX AFTER COVID RESULTS ARE IN. COVID SWAB HAS BEEN SENT TO LAB. ABGs have been taken.
[2021-09-19 05:34] LABS: ABG BASE EXCESS -3.2 mmol/L (-2.0-2.0); ABG HCO3 21.9 mmol/L (22.0-26.0); ABG OXYGEN SATURATION 92.5 % (94-97); ABG PCO2 (T) 38.4 mmHg (35.0-48.0); ABG PO2 (T) 68.1 mmHg (75.0-100.0); ALLEN'S TEST Modified; FCOHb 0.5 % (0.0-3.9); FLOW 10 L/min; FMetHb 0.3 % (0.0-1.5); FO2Hb 91.8 % (94-97); PATIENT TEMPERATURE 36.5; TOTAL HEMOGLOBIN 13.1 G/dl (14.0-18.0)
[2021-09-19 05:46] LABS: APTT 28 SECONDS (22-32); D-DIMER 0.35 MG/L FEU (0-0.50)
[2021-09-19 05:48] LABS: BASOPHILS # (AUTO) 0.1 X10'3 (0-0.2); EOSINOPHILS # (AUTO) 0.3 X10'3 (0-0.9); EOSINOPHILS % (AUTO) 3.2 % (0-6); HEMATOCRIT 38.1 % (42.0-52.0); HEMOGLOBIN 12.4 g/dl (14.0-17.9); LYMPHOCYTES # (AUTO) 2.2 X10'3 (1.1-4.8); LYMPHOCYTES % (AUTO) 22.7 % (21-51); MEAN CORPUSCULAR HEMOGLOBIN 28.9 PG (27.0-31.0); MEAN CORPUSCULAR HGB CONC 32.6 g/dL (33.0-36.5); MEAN CORPUSCULAR VOLUME 88.7 FL (78-98); MEAN PLATELET VOLUME 7.8 FL (7.4-10.4); MONOCYTES # (AUTO) 0.7 X10'3 (0-0.9); MONOCYTES % (AUTO) 7.3 % (2-12); NEUTROPHILS # (AUTO) 6.4 X10'3 (1.8-7.7); NEUTROPHILS % (AUTO) 65.8 % (42-75); PLATELET COUNT 212 X10'3 (140-440); RED CELL DISTRIBUTION WIDTH 14.5 % (11.5-14.5); WHITE BLOOD COUNT 9.6 X10'3 (4.5-11.0)
[2021-09-19 05:52] LABS: ALANINE AMINOTRANSFERASE 61 U/L (12-78); ALBUMIN 3.6 G/DL (3.4-5.0); ALBUMIN/GLOBULIN RATIO 1.1 (1.1-1.5); ALKALINE PHOSPHATASE 47 IU/L (46-116); ANION GAP 9 (8-16); ASPARTATE AMINO TRANSFERASE 52 U/L (10-37); BILIRUBIN,TOTAL 0.5 MG/DL (0.1-1.0); BLOOD UREA NITROGEN 34 MG/DL (7-18); BUN/CREATININE RATIO 22.2 (5.4-32.0); CALCIUM 8.6 MG/DL (8.5-10.1); CHLORIDE 104 MMOL/L (99-107); CREATININE 1.53 MG/DL (0.60-1.10); GLUCOSE 114 MG/DL (70-104); POTASSIUM 4.2 MMOL/L (3.5-5.1); SODIUM 138 MMOL/L (135-145); TOTAL CARBON DIOXIDE 25.2 MMOL/L (24-32); eGFR 44 ML/MIN
[2021-09-19] MEDS ORDERED: furosemide 10 MG/1 ML 10ml inj IV ONE (05:55)
--- NOTE | 2021-09-19 05:58 | NUR ---
PT WAS GIVEN TX. PLACED ON NON RE-BREATHER AT 13 LPM. SATTING AT 93%. MD AWARE. DR GONZALEZ WILL ORDER LASIX. POTASSIUM LABS PENDING.
[2021-09-19] MEDS ORDERED: nitroGLYCERIN-Tridil 50MG/D5W 250 ML IV ONE ×2 (06:05)
--- NOTE | 2021-09-19 06:25 | NUR ---
Report from LEDA Brooks. Pt sitting up with non-rebreather at 15 LPM, O2 sats 87-92%. Pt has increased work of breathing. RR 25-30. Pt diaphoretic. Cecilia stated this was pt's baseline when he arrived. Helped pt use bedpan. BM x1 soft, brown. Urinal at bedside. Pt cleaned up, changed into gown and warm blanket provided. Call light within reach. Started on Nitro gtt per MD orders.
--- NOTE | 2021-09-19 07:15 | NUR ---
at bedside. Pt to be placed on BiPAP
--- NOTE | 2021-09-19 07:31 | NUR ---
RT at bedside. Nitro stopped for BP 95/48.
--- NOTE | 2021-09-19 07:51 | NUR ---
Pt placed on BiPAP 26/01. Pt tolerating BiPAP well. Nitroglycerin gtt still off due to Pt's BP (95/46). No further needs at this time.
--- NOTE | 2021-09-19 07:58 | NUR ---
Pt has low BP (87/48) MD notified.
--- NOTE | 2021-09-19 08:00 | NUR ---
states that pt's BP is ok- "If it gets lower we will stop the BiPAP."
--- NOTE | 2021-09-19 08:25 | NUR ---
Pt tolerating BiPAP well. Looks more relaxed. States he feels much better. BP recovered and stable at this time. Pt resting comfortably, no further needs.
--- NOTE | 2021-09-19 09:25 | NUR ---
Pt resting, no apparent needs or distress at this time. On BiPAP.
--- NOTE | 2021-09-19 10:44 | NUR ---
Updated pt on plan of care. States he is starting to get hungry. Pt PWD, alert & oriented x3, no longer diaphoretic. No apparent distress or needs at this time. Vital signs stable.
[2021-09-19] MEDS ORDERED: morphine 2 MG/ML inj. syringe IV PRN (11:20)
[2021-09-19] MEDS ORDERED: ondansetron/PF 4mg/2ml inj IV PRN (11:20)
[2021-09-19] MEDS ORDERED: morphine 4 MG/ML inj SYRINge IV PRN (11:20)
[2021-09-19] MEDS ORDERED: acetaminophen 325mg tablet PO PRN (11:20)
[2021-09-19] MEDS ORDERED: potassium Cl 20 mEq SR tablet PO PRN ×2 (11:20)
--- NOTE | 2021-09-19 11:30 | NUR ---
Pt to be admitted. Pt resting comfortably. No needs at this time.
--- NOTE | 2021-09-19 12:25 | NUR ---
Respiratory paged to assist with moving pt to ICU. Report already called. Pt stable, no needs at this time.
[2021-09-19] MEDS ORDERED: ALBU2.5V10 NEB (12:53)
[2021-09-19 14:55] LABS: ALANINE AMINOTRANSFERASE 49 U/L (12-78); ALBUMIN 3.2 G/DL (3.4-5.0); ALKALINE PHOSPHATASE 41 IU/L (46-116); ANION GAP 11 (8-16); ASPARTATE AMINO TRANSFERASE 35 U/L (10-37); BILIRUBIN,TOTAL 0.7 MG/DL (0.1-1.0); BLOOD UREA NITROGEN 31 MG/DL (7-18); BUN/CREATININE RATIO 25.2 (5.4-32.0); CALCIUM 8.2 MG/DL (8.5-10.1); CHLORIDE 105 MMOL/L (99-107); CREATININE 1.23 MG/DL (0.60-1.10); GLUCOSE 99 MG/DL (70-104); POTASSIUM 3.9 MMOL/L (3.5-5.1); SODIUM 140 MMOL/L (135-145); TOTAL CARBON DIOXIDE 24.4 MMOL/L (24-32); TOTAL PROTEIN 6.4 G/DL (6.4-8.2); eGFR 57 ML/MIN
--- NOTE | 2021-09-19 17:25 | NUR ---
Shift note: Pt received from ED about 1400 via gurney with RN and assistant director of financial aid on monitor and 02 @ 4 L/NC. Transferred to bed by staff. HOB up to 30 or greater to pts comfort. Pt used urinal after settled and no difficulty urinating. States had BM today. He has dentures but did not bring them. He rested comfortably throughout the shift. O2 decreased to 2 L/NC and maintaining sats. C/O headache only @ a 2 on 1-10 scale. Sat up in bed to eat dinner at 1715 and independently ate.
--- NOTE | 2021-09-19 18:10 | NUR ---
Problems reprioritized. Patient report given, questions answered & plan of care reviewed with Nelly TOMPKINS.
[2021-09-19] MEDS ORDERED: amiodarone 200mg tablet PO ONE (20:55)
[2021-09-19] MEDS ORDERED: aspirin 81mg tab.chew PO ONE (20:55)
[2021-09-19] MEDS ORDERED: albuterol 2.5 MG/3 ML nebule NEB PRN (20:55)
[2021-09-19] MEDS ORDERED: apixaban 5mg tablet PO ONE (20:55)
[2021-09-19] MEDS ORDERED: spironolactone 25 MG tablet PO ONE (20:55)
[2021-09-20] VITALS (24 sets, daily range): BP systolic 82–146; BP diastolic 20–65
[2021-09-20 05:50] LABS: BASOPHILS % (AUTO) 0.4 % (0-1); EOSINOPHILS # (AUTO) 0.2 X10'3 (0-0.9); EOSINOPHILS % (AUTO) 1.9 % (0-6); HEMATOCRIT 35.1 % (42.0-52.0); HEMOGLOBIN 11.8 g/dl (14.0-17.9); LYMPHOCYTES # (AUTO) 1.5 X10'3 (1.1-4.8); LYMPHOCYTES % (AUTO) 17.6 % (21-51); MEAN CORPUSCULAR HEMOGLOBIN 29.6 PG (27.0-31.0); MEAN CORPUSCULAR HGB CONC 33.5 g/dL (33.0-36.5); MEAN CORPUSCULAR VOLUME 88.4 FL (78-98); MEAN PLATELET VOLUME 7.6 FL (7.4-10.4); MONOCYTES # (AUTO) 0.9 X10'3 (0-0.9); MONOCYTES % (AUTO) 10.5 % (2-12); NEUTROPHILS # (AUTO) 6.1 X10'3 (1.8-7.7); NEUTROPHILS % (AUTO) 69.6 % (42-75); PLATELET COUNT 185 X10'3 (140-440); RED BLOOD COUNT 3.97 X10'6 (4.70-6.10); RED CELL DISTRIBUTION WIDTH 14.5 % (11.5-14.5); WHITE BLOOD COUNT 8.7 X10'3 (4.5-11.0)
--- NOTE | 2021-09-20 06:00 | NUR ---
Patient in room ICU 2039. I have received report from Nelly TOMPKINS and had the opportunity to ask questions and assume patient care.
[2021-09-20 06:05] LABS: ALBUMIN 3.1 G/DL (3.4-5.0); ANION GAP 7 (8-16); BLOOD UREA NITROGEN 24 MG/DL (7-18); CALCIUM 8.2 MG/DL (8.5-10.1); CHLORIDE 107 MMOL/L (99-107); GLUCOSE 92 MG/DL (70-104); MAGNESIUM 2.1 MG/DL (1.5-2.4); POTASSIUM 3.7 MMOL/L (3.5-5.1); SODIUM 140 MMOL/L (135-145); TOTAL CARBON DIOXIDE 26.5 MMOL/L (24-32); eGFR 72 ML/MIN
--- NOTE | 2021-09-20 06:39 | NUR ---
Problems reprioritized. Patient report given, questions answered & plan of care reviewed with Huong TOMPKINS.
[2021-09-20] MEDS: K and/or MAG REPLACEMENT MC SCH (08:00)
[2021-09-20] MEDS ORDERED: nitroGLYCERIN 0.4mg SUBLingual tab SL PRN (10:50)
[2021-09-20] MEDS ORDERED: albuterol 2.5 MG/3 ML nebule NEB PRN (10:50)
[2021-09-20 11:14] LABS: ALANINE AMINOTRANSFERASE 41 U/L (12-78); ALKALINE PHOSPHATASE 35 IU/L (46-116); ASPARTATE AMINO TRANSFERASE 24 U/L (10-37); BILIRUBIN,DIRECT 0.2 MG/DL (0-0.3); BILIRUBIN,TOTAL 1.1 MG/DL (0.1-1.0); TOTAL PROTEIN 6.1 G/DL (6.4-8.2)
[2021-09-20] MEDS: albuterol 2.5 MG/3 ML nebule NEB SCH ×2 (15:06→20:32)
--- NOTE | 2021-09-20 18:18 | NUR ---
Problems reprioritized. Patient report given, questions answered & plan of care reviewed with Mac RN.
[2021-09-20] MEDS: carVEDilol 3.125mg tablet PO SCH (20:00)
[2021-09-20] MEDS: NYSTATIN CREAM - 30GM TUBE TP SCH (20:00)
[2021-09-20] MEDS: atorvastatin 10mg tablet PO SCH (20:14)
[2021-09-20] MEDS: apixaban 5mg tablet PO SCH (20:14)
[2021-09-20] MEDS: magnesium hydroxide 30ml (MOM) UD suspension PO PRN (20:14)
--- NOTE | 2021-09-20 20:20 | NUR ---
Reviewed medications with patient. Pt refused Lipitor and Coreg. Diastolic blood pressure is low and systolic is marginal. Pt states that he has not taken Lipitor for a long time.
[2021-09-20] MEDS: budesonide 0.5mg/2ml UD nebule IH SCH (20:33)
--- NOTE | 2021-09-20 22:35 | NUR ---
Called report to Paulette TOMPKINS on Med-Surg
--- NOTE | 2021-09-20 22:38 | NUR ---
Patient in room ICU 2039. I have received report from LEDA BOWMAN IN ICU and had the opportunity to ask questions and assume patient care. Addendum: 09/20/21 at 2238 by Paulette Zamora RN Amended: Links added.
--- NOTE | 2021-09-20 22:55 | NUR ---
PT ARRIVED TO THE FLOOR ORIENTED TO THE ROOM.
--- NOTE | 2021-09-20 23:00 | NUR ---
I CONCUR WITH THE ASSESSMENT DONE IN ICU EARLIER THIS SHIFT. Addendum: 09/21/21 at 0110 by Paulette Zamora RN Amended: Links added.
[2021-09-21] MEDS: acetaminophen 325mg tablet PO PRN (02:17)
--- NOTE | 2021-09-21 02:20 | NUR ---
MEDICATED FOR HEADACHE 08/22 WITH TYLENOL PO.
[2021-09-21] MEDS: albuterol 2.5 MG/3 ML nebule NEB SCH ×2 (02:52→08:00)
--- NOTE | 2021-09-21 06:08 | NUR ---
Problems reprioritized. Patient report given, questions answered & plan of care reviewed with LEDA HENRY. Addendum: 09/21/21 at 0611 by Paulette Zamora RN Amended: Links added.
--- NOTE | 2021-09-21 06:30 | NUR ---
Patient in room HUMBERTO 359. I have received report from Paulette TOMPKINS and had the opportunity to ask questions and assume patient care.
[2021-09-21 07:00] VITALS: BP 100/42
[2021-09-21 07:02] LABS: BASOPHILS # (AUTO) 0.1 X10'3 (0-0.2); BASOPHILS % (AUTO) 0.9 % (0-1); EOSINOPHILS # (AUTO) 0.1 X10'3 (0-0.9); EOSINOPHILS % (AUTO) 1.7 % (0-6); LYMPHOCYTES # (AUTO) 1.7 X10'3 (1.1-4.8); LYMPHOCYTES % (AUTO) 18.8 % (21-51); MEAN CORPUSCULAR HEMOGLOBIN 29.7 PG (27.0-31.0); MEAN CORPUSCULAR HGB CONC 33.5 g/dL (33.0-36.5); MEAN CORPUSCULAR VOLUME 88.7 FL (78-98); MEAN PLATELET VOLUME 7.4 FL (7.4-10.4); MONOCYTES # (AUTO) 0.9 X10'3 (0-0.9); MONOCYTES % (AUTO) 9.7 % (2-12); NEUTROPHILS # (AUTO) 6.1 X10'3 (1.8-7.7); NEUTROPHILS % (AUTO) 68.9 % (42-75); PLATELET COUNT 183 X10'3 (140-440); RED BLOOD COUNT 3.72 X10'6 (4.70-6.10); WHITE BLOOD COUNT 8.9 X10'3 (4.5-11.0)
[2021-09-21 07:04] LABS: ALBUMIN 2.9 G/DL (3.4-5.0); ANION GAP 9 (8-16); BLOOD UREA NITROGEN 17 MG/DL (7-18); BUN/CREATININE RATIO 15.2 (5.4-32.0); CHLORIDE 106 MMOL/L (99-107); CREATININE 1.12 MG/DL (0.60-1.10); GLUCOSE 104 MG/DL (70-104); MAGNESIUM 2.4 MG/DL (1.5-2.4); POTASSIUM 3.6 MMOL/L (3.5-5.1); SODIUM 141 MMOL/L (135-145); TOTAL CARBON DIOXIDE 26.5 MMOL/L (24-32); eGFR 63 ML/MIN
[2021-09-21 07:48] VITALS: BP 100/42
[2021-09-21] MEDS: spironolactone 25 MG tablet PO SCH (08:00)
[2021-09-21] MEDS: budesonide 0.5mg/2ml UD nebule IH SCH (08:00)
[2021-09-21] MEDS: K and/or MAG REPLACEMENT MC SCH (08:00)
[2021-09-21] MEDS: NYSTATIN CREAM - 30GM TUBE TP SCH ×2 (08:00→20:00)
[2021-09-21] MEDS: amiodarone 200mg tablet PO SCH (08:00)
[2021-09-21] MEDS: furosemide 40mg tablet PO SCH (08:00)
[2021-09-21] MEDS: carVEDilol 3.125mg tablet PO SCH ×2 (08:00→20:15)
[2021-09-21] MEDS: OMEGA-3/DHA/EPA/FISH OIL 1 EACH CAPSULE.DR PO SCH (08:47)
[2021-09-21] MEDS: apixaban 5mg tablet PO SCH ×2 (08:47→20:15)
[2021-09-21] MEDS: aspirin 81mg tab.chew PO SCH (08:47)
[2021-09-21] MEDS: multivitamins, therapeutics tablet PO SCH (08:47)
[2021-09-21] MEDS: cholecalciferol (vitamin D3) 1,000 unit (25mcg) tablet PO SCH (08:49)
[2021-09-21] MEDS: potassium Cl 20 mEq SR tablet PO SCH (08:49)
[2021-09-21] MEDS: pantoprazole 40mg Tablet.DR PO SCH (08:49)
[2021-09-21] MEDS ORDERED: ondansetron 4mg rapidly disintigrating tab PO PRN (10:55)
[2021-09-21 12:09] VITALS: BP 102/59
--- NOTE | 2021-09-21 13:05 | NUR ---
Dr. Saldana aware of patients BP & BP medications held this morning.
--- NOTE | 2021-09-21 14:39 | NUR ---
Called to give report to PCU, unable to find out who is taking patient and unable to locate charge nurse. Will call back in 15 minutes.
--- NOTE | 2021-09-21 15:11 | NUR ---
Report given to MARINE STRUCTURAL DESIGNER.
--- NOTE | 2021-09-21 15:30 | NUR ---
Patient transferred by Nic TOMPKINS from [place] to PCU. All belongings and chart transported to PCU. Patient continued to be monitored on Appointment Clerk during transportation.
[2021-09-21] MEDS ORDERED: methylPREDNISolone sod succ 125mg/2ml vial IV ONE (15:35)
[2021-09-21] MEDS: azithromycin 250mg tablet PO SCH (16:51)
[2021-09-21] MEDS: magnesium hydroxide 30ml (MOM) UD suspension PO PRN (16:51)
[2021-09-21] MEDS: cefTRIAXone 1g/NS 100ml IVPB 100 ML IV SCH (17:16)
--- NOTE | 2021-09-21 18:07 | NUR ---
Pt. has constipation. Given MOM and warm prune juice. Last BM 09/19 in the am
[2021-09-21 18:30] VITALS: BP 110/57
--- NOTE | 2021-09-21 18:44 | NUR ---
Patient in room U 3012. I have received report from LEDA HESS and had the opportunity to ask questions and assume patient care. Addendum: 09/21/21 at 1844 by Paulette Zamora RN Amended: Links added.
[2021-09-21] MEDS: ipratropium/albuterol 3ml nebule NEB SCH ×2 (19:07→23:31)
[2021-09-21] MEDS: methylPREDNISolone sod succ 125mg/2ml vial IV SCH (20:14)
[2021-09-21] MEDS: atorvastatin 10mg tablet PO SCH (20:15)
--- NOTE | 2021-09-21 21:25 | NUR ---
due to worsening grf and increasing BUM & creatine lantus 6 units given. Addendum: 09/21/21 at 2227 by Paulette Zamora RN [id number] notev is on the wrong pt. this pt a/o pleasant and joking with the staff
[2021-09-21 22:00] VITALS: BP 112/57
--- NOTE | 2021-09-21 23:25 | NUR ---
resting without s&S of distress.
[2021-09-22 02:00] VITALS: BP 121/65
[2021-09-22] MEDS: methylPREDNISolone sod succ 125mg/2ml vial IV SCH ×4 (02:18→19:43)
[2021-09-22] MEDS: acetaminophen 325mg tablet PO PRN (02:22)
--- NOTE | 2021-09-22 02:23 | NUR ---
solumedrol given c/o headache 07/25 and medicated with po tylenol for it.
[2021-09-22] MEDS: ipratropium/albuterol 3ml nebule NEB SCH ×6 (03:02→22:52)
--- NOTE | 2021-09-22 05:51 | NUR ---
resting right side eyes closed
[2021-09-22 06:00] VITALS: BP 106/52
--- NOTE | 2021-09-22 06:14 | NUR ---
Problems reprioritized. Patient report given, questions answered & plan of care reviewed with LEDA BANKS. Addendum: 09/22/21 at 0615 by Paulette Zamora RN Amended: Links added.
--- NOTE | 2021-09-22 06:24 | NUR ---
Problems reprioritized. Patient report given, questions answered & plan of care reviewed with LEDA CARDENAS.
[2021-09-22] MEDS: K and/or MAG REPLACEMENT MC SCH (08:00)
[2021-09-22] MEDS: potassium Cl 20 mEq SR tablet PO SCH (08:27)
[2021-09-22] MEDS: amiodarone 200mg tablet PO SCH (08:27)
[2021-09-22] MEDS: aspirin 81mg tab.chew PO SCH (08:27)
[2021-09-22] MEDS: azithromycin 250mg tablet PO SCH (08:27)
[2021-09-22] MEDS: cholecalciferol (vitamin D3) 1,000 unit (25mcg) tablet PO SCH (08:27)
[2021-09-22] MEDS: multivitamins, therapeutics tablet PO SCH (08:28)
[2021-09-22] MEDS: spironolactone 25 MG tablet PO SCH (08:28)
[2021-09-22] MEDS: furosemide 40mg tablet PO SCH (08:28)
[2021-09-22] MEDS: carVEDilol 3.125mg tablet PO SCH ×2 (08:28→19:43)
[2021-09-22] MEDS: OMEGA-3/DHA/EPA/FISH OIL 1 EACH CAPSULE.DR PO SCH (08:28)
[2021-09-22] MEDS: apixaban 5mg tablet PO SCH ×2 (08:28→19:43)
[2021-09-22] MEDS: pantoprazole 40mg Tablet.DR PO SCH (08:29)
[2021-09-22] MEDS: cefTRIAXone 1g/NS 100ml IVPB 100 ML IV SCH (08:29)
[2021-09-22] MEDS: NYSTATIN CREAM - 30GM TUBE TP SCH ×2 (08:30→19:49)
[2021-09-22 08:32] LABS: ALBUMIN 3.1 G/DL (3.4-5.0); ANION GAP 11 (8-16); BLOOD UREA NITROGEN 17 MG/DL (7-18); BUN/CREATININE RATIO 15.9 (5.4-32.0); CALCIUM 8.5 MG/DL (8.5-10.1); CHLORIDE 103 MMOL/L (99-107); CREATININE 1.07 MG/DL (0.60-1.10); GLUCOSE 150 MG/DL (70-104); MAGNESIUM 2.3 MG/DL (1.5-2.4); POTASSIUM 4.4 MMOL/L (3.5-5.1); SODIUM 138 MMOL/L (135-145); TOTAL CARBON DIOXIDE 23.8 MMOL/L (24-32); eGFR 66 ML/MIN
[2021-09-22 08:50] LABS: BASOPHILS % (AUTO) 0 % (0-1); EOSINOPHILS % (AUTO) 0 % (0-6); HEMATOCRIT 36.9 % (42.0-52.0); HEMOGLOBIN 12.1 g/dl (14.0-17.9); LYMPHOCYTES # (AUTO) 0.6 X10'3 (1.1-4.8); LYMPHOCYTES % (AUTO) 7.1 % (21-51); MEAN CORPUSCULAR HEMOGLOBIN 28.9 PG (27.0-31.0); MEAN CORPUSCULAR HGB CONC 32.9 g/dL (33.0-36.5); MEAN PLATELET VOLUME 7.8 FL (7.4-10.4); MONOCYTES # (AUTO) 0.1 X10'3 (0-0.9); MONOCYTES % (AUTO) 1.2 % (2-12); NEUTROPHILS # (AUTO) 7.2 X10'3 (1.8-7.7); NEUTROPHILS % (AUTO) 91.7 % (42-75); PLATELET COUNT 200 X10'3 (140-440); RED BLOOD COUNT 4.19 X10'6 (4.70-6.10); RED CELL DISTRIBUTION WIDTH 14.7 % (11.5-14.5); WHITE BLOOD COUNT 7.9 X10'3 (4.5-11.0)
[2021-09-22 11:00] VITALS: BP 96/48
--- NOTE | 2021-09-22 12:54 | NUR ---
Initial: Pt admitted w/ respiratory failure and COPD w/ exacerbation per EMR. Currently on Heart Healthy diet w/ mostly 100% intake of meals, partially meeting est protein needs. Will provide double protein w/ some meals to help meet increased needs. LBM 09/19 receiving PRN bowel care. Will continue to monitor and make recommendations as appropriate. Recs: 1. Continue Heart Healthy diet as tolerated, consider liberalizing to Regular given age 2. Double Protein BIDBD 3. Bowel care per rx 4. Weekly wts Addendum: 09/22/21 at [address] Amended: Links added.
[2021-09-22 15:00] VITALS: BP 106/53
[2021-09-22 18:00] VITALS: BP 116/67
[2021-09-22] MEDS: atorvastatin 10mg tablet PO SCH (19:43)
[2021-09-22 22:00] VITALS: BP 114/66
[2021-09-23] MEDS: acetaminophen 325mg tablet PO PRN ×2 (00:38→14:13)
[2021-09-23 02:00] VITALS: BP 101/62
[2021-09-23] MEDS: methylPREDNISolone sod succ 125mg/2ml vial IV SCH ×2 (02:21→08:00)
[2021-09-23] MEDS: ipratropium/albuterol 3ml nebule NEB SCH ×3 (03:01→11:53)
[2021-09-23 06:00] VITALS: BP 103/54
[2021-09-23 07:27] LABS: BASOPHILS % (AUTO) 0 % (0-1); EOSINOPHILS % (AUTO) 0 % (0-6); HEMATOCRIT 34.6 % (42.0-52.0); HEMOGLOBIN 11.3 g/dl (14.0-17.9); LYMPHOCYTES # (AUTO) 0.5 X10'3 (1.1-4.8); LYMPHOCYTES % (AUTO) 4.2 % (21-51); MEAN CORPUSCULAR HEMOGLOBIN 28.7 PG (27.0-31.0); MEAN CORPUSCULAR HGB CONC 32.5 g/dL (33.0-36.5); MEAN CORPUSCULAR VOLUME 88.1 FL (78-98); MEAN PLATELET VOLUME 7.8 FL (7.4-10.4); MONOCYTES # (AUTO) 0.4 X10'3 (0-0.9); MONOCYTES % (AUTO) 3.7 % (2-12); NEUTROPHILS % (AUTO) 92.1 % (42-75); PLATELET COUNT 210 X10'3 (140-440); RED BLOOD COUNT 3.93 X10'6 (4.70-6.10); WHITE BLOOD COUNT 11.9 X10'3 (4.5-11.0)
[2021-09-23 07:40] LABS: ALBUMIN 3.1 G/DL (3.4-5.0); ANION GAP 8 (8-16); BLOOD UREA NITROGEN 19 MG/DL (7-18); BUN/CREATININE RATIO 17.9 (5.4-32.0); CALCIUM 8.5 MG/DL (8.5-10.1); CHLORIDE 103 MMOL/L (99-107); CREATININE 1.06 MG/DL (0.60-1.10); GLUCOSE 141 MG/DL (70-104); MAGNESIUM 2.3 MG/DL (1.5-2.4); SODIUM 135 MMOL/L (135-145); TOTAL CARBON DIOXIDE 23.8 MMOL/L (24-32); eGFR 67 ML/MIN
[2021-09-23 07:43] LABS: POTASSIUM 4.5 MMOL/L (3.5-5.1)
[2021-09-23] MEDS: aspirin 81mg tab.chew PO SCH (07:58)
[2021-09-23] MEDS: carVEDilol 3.125mg tablet PO SCH (07:58)
[2021-09-23] MEDS: OMEGA-3/DHA/EPA/FISH OIL 1 EACH CAPSULE.DR PO SCH (07:58)
[2021-09-23] MEDS: potassium Cl 20 mEq SR tablet PO SCH (07:59)
[2021-09-23] MEDS: multivitamins, therapeutics tablet PO SCH (07:59)
[2021-09-23] MEDS: furosemide 40mg tablet PO SCH (07:59)
[2021-09-23] MEDS: apixaban 5mg tablet PO SCH (07:59)
[2021-09-23] MEDS: cholecalciferol (vitamin D3) 1,000 unit (25mcg) tablet PO SCH (07:59)
[2021-09-23] MEDS: spironolactone 25 MG tablet PO SCH (07:59)
[2021-09-23] MEDS: amiodarone 200mg tablet PO SCH (07:59)
[2021-09-23] MEDS: pantoprazole 40mg Tablet.DR PO SCH (07:59)
[2021-09-23] MEDS: azithromycin 250mg tablet PO SCH (08:00)
[2021-09-23] MEDS: NYSTATIN CREAM - 30GM TUBE TP SCH (08:04)
[2021-09-23] MEDS: cefTRIAXone 1g/NS 100ml IVPB 100 ML IV SCH (08:09)
[2021-09-23 11:00] VITALS: BP 107/52
== END 2021-09-23 14:33 | DRG 193 ==
LOC: ER 04:41 → ED HOLD 11:21 → ICU 2S 13:45 → SUR 3N 09-20 23:08 → PCU 3S 09-21 15:45
PROVIDERS: ADMIT Surgery; ATTEND Surgery
DX: J18.9 Pneumonia, unspecified organism (principal); I50.23 Acute on chronic systolic (congestive) heart failure; J96.21 Acute and chronic respiratory failure with hypoxia; J96.22 Acute and chronic respiratory failure with hypercapnia; J44.1 Chronic obstructive pulmonary disease with (acute) exacerbation; I48.20 Chronic atrial fibrillation, unspecified; J44.0 Chronic obstructive pulmonary disease with (acute) lower respiratory infection; Z20.822 Contact with and (suspected) exposure to COVID-19; I11.0 Hypertensive heart disease with heart failure; K21.9 Gastro-esophageal reflux disease without esophagitis; E78.5 Hyperlipidemia, unspecified; N40.0 Benign prostatic hyperplasia without lower urinary tract symptoms; E78.00 Pure hypercholesterolemia, unspecified; I25.10 Atherosclerotic heart disease of native coronary artery without angina pectoris; I25.2 Old myocardial infarction; Z80.0 Family history of malignant neoplasm of digestive organs; Z88.8 Allergy status to other drugs, medicaments and biological substances; Z95.0 Presence of cardiac pacemaker; Z81.8 Family history of other mental and behavioral disorders; Z82.3 Family history of stroke; Z79.899 Other long term (current) drug therapy; Z79.01 Long term (current) use of anticoagulants
CPT/HCPCS: 36415; 36600; 71045; 80048; 80053; 82248; 82803; 82948; 83605; 83735; 83880; 84439; 84443; 84484; 85018; 85025; 85379; 85610; 85730; 87040; 87081; 87635; 93005; 94640; 94660; 94760; 97116; 97161; 97530; 99285; C9803; G0378; J0696; J1940; J2930; J3490

== ENCOUNTER 2022-01-12 05:32 | Inpatient (IN) | payer OTHER, MEDICARE, MEDICAID ==
[~2022-01-12] VITALS: Ht 177.8 cm; Wt 95.5 kg
[~2022-01-12 05:32] MED LIST changes: -ALBU18HF2 INH; +ALBU2.5V10 NEB; -IPRA3AMP31 IH
[2022-01-12] MEDS ORDERED: DOCU-148 PO (05:59)
[2022-01-12] MEDS ORDERED: POLY119P2 PO (06:00)
[2022-01-12] MEDS ORDERED: albuterol 2.5 MG/3 ML nebule NEB ONE (06:30)
[2022-01-12 06:38] LABS: HEMOGLOBIN 11.4 g/dl (14.0-17.9); WHITE BLOOD COUNT 7.6 X10'3 (4.5-11.0)
[2022-01-12 06:39] LABS: BASOPHILS # (AUTO) 0.1 X10'3 (0-0.2); BASOPHILS % (AUTO) 0.9 % (0-1); EOSINOPHILS # (AUTO) 0.2 X10'3 (0-0.9); EOSINOPHILS % (AUTO) 3.1 % (0-6); LYMPHOCYTES # (AUTO) 1.7 X10'3 (1.1-4.8); LYMPHOCYTES % (AUTO) 21.7 % (21-51); MEAN CORPUSCULAR HEMOGLOBIN 30.1 PG (27.0-31.0); MEAN CORPUSCULAR HGB CONC 33.5 g/dL (33.0-36.5); MEAN CORPUSCULAR VOLUME 89.7 FL (78-98); MEAN PLATELET VOLUME 7.7 FL (7.4-10.4); MONOCYTES # (AUTO) 0.7 X10'3 (0-0.9); MONOCYTES % (AUTO) 9.4 % (2-12); NEUTROPHILS % (AUTO) 64.9 % (42-75); PLATELET COUNT 173 X10'3 (140-440); RED BLOOD COUNT 3.79 X10'6 (4.70-6.10); RED CELL DISTRIBUTION WIDTH 16.6 % (11.5-14.5)
[2022-01-12 06:52] LABS: ALANINE AMINOTRANSFERASE 61 U/L (12-78); ALBUMIN 3.5 G/DL (3.4-5.0); ALBUMIN/GLOBULIN RATIO 1.1 (1.1-1.5); ALKALINE PHOSPHATASE 41 IU/L (46-116); ANION GAP 10 (8-16); ASPARTATE AMINO TRANSFERASE 37 U/L (10-37); BILIRUBIN,TOTAL 0.6 MG/DL (0.1-1.0); BLOOD UREA NITROGEN 28 MG/DL (7-18); BUN/CREATININE RATIO 18.1 (5.4-32.0); CALCIUM 8.3 MG/DL (8.5-10.1); CHLORIDE 106 MMOL/L (99-107); CREATININE 1.55 MG/DL (0.60-1.10); GLUCOSE 93 MG/DL (70-104); SODIUM 141 MMOL/L (135-145); TOTAL CARBON DIOXIDE 25.2 MMOL/L (24-32); TOTAL PROTEIN 6.7 G/DL (6.4-8.2); eGFR 43 ML/MIN
--- NOTE | 2022-01-12 07:05 | NUR ---
Pt awake, continues to be monitored, disposition pending..
[2022-01-12] MEDS ORDERED: CefTRIAXone/D5W-Rocephin 1gm 50 ML IV ONE (09:50)
[2022-01-12] MEDS ORDERED: azithromycin/NS 500mg/250ml 250 ML IV ONE (09:50)
--- NOTE | 2022-01-12 10:19 | NUR ---
Respiratory was paiged several times to give pt breathing treatment but unsuccessful.
[2022-01-12] MEDS ORDERED: normal saline 1000ml 1,000 ML IV SCH (10:30)
[2022-01-12] MEDS ORDERED: ipratropium/albuterol 3ml nebule NEB PRN (10:30)
[2022-01-12] MEDS ORDERED: magnesium hydroxide 30ml (MOM) UD suspension PO PRN (10:30)
[2022-01-12] MEDS ORDERED: magnesium 4gm in 100ml NS 100 ML IV PRN (10:30)
[2022-01-12] MEDS ORDERED: bisacodyl 10mg suppository rectal RC PRN (10:30)
[2022-01-12] MEDS ORDERED: morphine 2 MG/ML inj. syringe IV PRN ×2 (10:30)
[2022-01-12] MEDS ORDERED: magnesium 2GM in 50ml NS 50 ML IV PRN (10:30)
[2022-01-12] MEDS ORDERED: ondansetron/PF 4mg/2ml inj IV PRN (10:30)
[2022-01-12] MEDS ORDERED: mag hydrox/Alum hydrox/simeth 30ml oral suspension PO PRN (10:30)
[2022-01-12] MEDS ORDERED: acetaminophen 325mg tablet PO PRN ×2 (10:30)
[2022-01-12] MEDS ORDERED: magnesium Cl slow-release 64mg tablet PO PRN (10:30)
[2022-01-12] MEDS ORDERED: ondansetron 4mg rapidly disintigrating tab PO PRN (10:30)
[2022-01-12] MEDS ORDERED: potassium CL 10mEq/100ml bag 100 ML IV PRN (10:30)
[2022-01-12] MEDS ORDERED: PERFLUTREN PROTEIN-A MICROSPHR (Optison) 0.22 MG/ML 3ML VIAL IV PRN (10:30)
[2022-01-12] MEDS ORDERED: POTASSIUM BICARB 20meq eff tab 20 MEQ TABLET.EFF PO PRN ×2 (10:30)
[2022-01-12 11:11] LABS: MAGNESIUM 2.2 MG/DL (1.5-2.4)
[2022-01-12] MEDS ORDERED: HEMP OIL BC (12:33)
[2022-01-12] MEDS ORDERED: ALBU8.5H17 IH (12:33)
[2022-01-12] MEDS ORDERED: IBUP-1986 PO (12:33)
[2022-01-12] MEDS ORDERED: ACET-75 PO (12:33)
[2022-01-12] MEDS ORDERED: HEMP OIL BU PRN (13:05)
[2022-01-12] MEDS ORDERED: [UNRECOGNIZED DRUG - OTHER] BU PRN (13:05)
--- NOTE | 2022-01-12 13:59 | NUR ---
Report given to James in PCU.
[2022-01-12 14:08] VITALS: BP 122/75
--- NOTE | 2022-01-12 17:15 | NUR ---
PAGER ID: [phone] MESSAGE: James [id number] re: Susan Hogan Patient states, "I am going into CHF" he sounds coarse, with a wet cough. Patient wants Lasix now. Thanks Addendum: 01/12/22 at 1825 by Tex Coreas RN changed orders and increased the dose of patients lasix.
[2022-01-12] MEDS ORDERED: nitroGLYCERIN 0.4mg SUBLingual tab SL PRN (17:35)
[2022-01-12] MEDS ORDERED: ALBUTEROL INHALER 1 PUFF/90 MCG INHALation IH PRN (17:35)
[2022-01-12] MEDS ORDERED: albuterol 2.5 MG/3 ML nebule NEB PRN (17:35)
--- NOTE | 2022-01-12 18:24 | NUR ---
Problems reprioritized. Patient report given, questions answered & plan of care reviewed with Lilliana TOMPKINS.
--- NOTE | 2022-01-12 18:30 | NUR ---
Patient in room PCU 3024. I have received report from LUBA and had the opportunity to ask questions and assume patient care.
[2022-01-12 19:00] VITALS: BP 111/60
[2022-01-12] MEDS: furosemide 40mg/4ml inj IV SCH (19:09)
[2022-01-12] MEDS: K and/or MAG REPLACEMENT MC SCH (20:00)
[2022-01-12] MEDS ORDERED: furosemide 40mg/4ml inj IV SCH (20:00)
[2022-01-12] MEDS: albuterol 2.5 MG/3 ML nebule NEB SCH (20:11)
[2022-01-12] MEDS: budesonide 0.5mg/2ml UD nebule IH SCH (20:12)
[2022-01-12 20:35] VITALS: BP 115/66
[2022-01-12] MEDS: carVEDilol 3.125mg tablet PO SCH (20:35)
[2022-01-12] MEDS: docusate sod 100mg capsule PO SCH (20:35)
[2022-01-12] MEDS: pravastatin 40mg tablet PO SCH (20:35)
[2022-01-12] MEDS: potassium Cl 20 mEq SR tablet PO SCH (20:36)
[2022-01-12] MEDS: apixaban 5mg tablet PO SCH (20:36)
[2022-01-12] MEDS: HYDROcodone/acetaminophen 5mg/325mg tablet PO PRN (20:36)
[2022-01-12] MEDS ORDERED: temazepam 15mg capsule PO PRN (21:00)
[2022-01-12 22:00] VITALS: BP 111/53
[2022-01-13] MEDS: HYDROcodone/acetaminophen 10/325mg tab PO PRN ×4 (00:35→17:02)
[2022-01-13 02:00] VITALS: BP 113/63
--- NOTE | 2022-01-13 06:21 | NUR ---
Problems reprioritized. Patient report given, questions answered & plan of care reviewed with LUBA.
[2022-01-13 06:22] LABS: BASOPHILS # (AUTO) 0.1 X10'3 (0-0.2); BASOPHILS % (AUTO) 0.8 % (0-1); EOSINOPHILS # (AUTO) 0.1 X10'3 (0-0.9); EOSINOPHILS % (AUTO) 1.4 % (0-6); HEMATOCRIT 33.7 % (42.0-52.0); HEMOGLOBIN 11.2 g/dl (14.0-17.9); LYMPHOCYTES # (AUTO) 1.7 X10'3 (1.1-4.8); LYMPHOCYTES % (AUTO) 16.6 % (21-51); MEAN CORPUSCULAR HGB CONC 33.3 g/dL (33.0-36.5); MEAN CORPUSCULAR VOLUME 90.1 FL (78-98); MEAN PLATELET VOLUME 7.6 FL (7.4-10.4); MONOCYTES # (AUTO) 0.9 X10'3 (0-0.9); MONOCYTES % (AUTO) 8.1 % (2-12); NEUTROPHILS # (AUTO) 7.6 X10'3 (1.8-7.7); NEUTROPHILS % (AUTO) 73.1 % (42-75); PLATELET COUNT 179 X10'3 (140-440); RED BLOOD COUNT 3.73 X10'6 (4.70-6.10); RED CELL DISTRIBUTION WIDTH 16.8 % (11.5-14.5); WHITE BLOOD COUNT 10.5 X10'3 (4.5-11.0)
--- NOTE | 2022-01-13 06:41 | NUR ---
Patient in room PCU 3024. I have received report from Lilliana TOMPKINS and had the opportunity to ask questions and assume patient care.
[2022-01-13] MEDS: albuterol 2.5 MG/3 ML nebule NEB SCH ×4 (07:06→20:07)
[2022-01-13] MEDS: budesonide 0.5mg/2ml UD nebule IH SCH ×2 (07:06→20:07)
[2022-01-13 07:08] LABS: ALANINE AMINOTRANSFERASE 49 U/L (12-78); ALBUMIN 3.4 G/DL (3.4-5.0); ALBUMIN/GLOBULIN RATIO 1.1 (1.1-1.5); ALKALINE PHOSPHATASE 40 IU/L (46-116); ANION GAP 8 (8-16); ASPARTATE AMINO TRANSFERASE 29 U/L (10-37); BILIRUBIN,TOTAL 0.9 MG/DL (0.1-1.0); BLOOD UREA NITROGEN 19 MG/DL (7-18); BUN/CREATININE RATIO 17.9 (5.4-32.0); CALCIUM 8.1 MG/DL (8.5-10.1); CHLORIDE 108 MMOL/L (99-107); CHOL/HDL RATIO 2.3 (0.00-4.99); CHOLESTEROL 131 MG/DL (0-200); CREATININE 1.06 MG/DL (0.60-1.10); GLUCOSE 100 MG/DL (70-104); HDL CHOLESTEROL 57 MG/DL (35-60); LDL CHOLESTEROL 62 MG/DL (50-100); MAGNESIUM 2.2 MG/DL (1.5-2.4); POTASSIUM 3.7 MMOL/L (3.5-5.1); SODIUM 143 MMOL/L (135-145); TOTAL CARBON DIOXIDE 27.5 MMOL/L (24-32); TOTAL PROTEIN 6.6 G/DL (6.4-8.2); TRIGLYCERIDES 72 MG/DL (20-135); eGFR 67 ML/MIN
[2022-01-13 07:34] VITALS: BP 100/48
[2022-01-13] MEDS: docusate sod 100mg capsule PO SCH ×3 (08:00→19:37)
[2022-01-13] MEDS: K and/or MAG REPLACEMENT MC SCH ×2 (08:00→20:04)
[2022-01-13] MEDS: furosemide 40mg/4ml inj IV SCH ×2 (08:23→19:36)
[2022-01-13] MEDS: CefTRIAXone/D5W-Rocephin 1gm 50 ML IV SCH (08:23)
[2022-01-13] MEDS: spironolactone 25 MG tablet PO SCH (08:23)
[2022-01-13] MEDS: apixaban 5mg tablet PO SCH ×2 (08:23→19:36)
[2022-01-13] MEDS: azithromycin 250mg tablet PO SCH (08:24)
[2022-01-13] MEDS: amiodarone 200mg tablet PO SCH (08:24)
[2022-01-13] MEDS: aspirin 81mg tab.chew PO SCH (08:24)
[2022-01-13] MEDS: polyethylene glycol 3350 17gm powd pack PO SCH (08:24)
[2022-01-13] MEDS: carVEDilol 3.125mg tablet PO SCH ×2 (08:24→19:37)
[2022-01-13] MEDS: potassium Cl 20 mEq SR tablet PO SCH ×2 (08:24→19:35)
[2022-01-13 11:00] VITALS: BP 103/53
[2022-01-13 15:43] VITALS: BP 96/51
[2022-01-13] MEDS: calcium carbonate/vitamin D3 tablet PO SCH (17:00)
--- NOTE | 2022-01-13 18:30 | NUR ---
Patient in room PCU 3026. I have received report from LUBA and had the opportunity to ask questions and assume patient care.ASSUMED CARE OF PT WITH MARY LOU TOMPKINS
--- NOTE | 2022-01-13 18:35 | NUR ---
Problems reprioritized. Patient report given, questions answered & plan of care reviewed with Lilliana TOMPKINS.
[2022-01-13 19:00] VITALS: BP 110/70
[2022-01-13] MEDS: NYSTATIN CREAM - 30GM TUBE TP SCH (20:03)
[2022-01-13] MEDS: pravastatin 40mg tablet PO SCH (20:03)
[2022-01-13 22:00] VITALS: BP 102/55
[2022-01-13] MEDS: HYDROcodone/acetaminophen 5mg/325mg tablet PO PRN (22:58)
[2022-01-14 02:00] VITALS: BP 105/60
[2022-01-14 06:31] LABS: BASOPHILS # (AUTO) 0.1 X10'3 (0-0.2); EOSINOPHILS # (AUTO) 0.3 X10'3 (0-0.9); EOSINOPHILS % (AUTO) 3.7 % (0-6); HEMATOCRIT 29.3 % (42.0-52.0); HEMOGLOBIN 9.9 g/dl (14.0-17.9); LYMPHOCYTES # (AUTO) 1.5 X10'3 (1.1-4.8); MEAN CORPUSCULAR HEMOGLOBIN 30.6 PG (27.0-31.0); MEAN CORPUSCULAR HGB CONC 33.7 g/dL (33.0-36.5); MEAN CORPUSCULAR VOLUME 90.8 FL (78-98); MEAN PLATELET VOLUME 7.4 FL (7.4-10.4); MONOCYTES # (AUTO) 0.7 X10'3 (0-0.9); MONOCYTES % (AUTO) 10.5 % (2-12); NEUTROPHILS # (AUTO) 4.3 X10'3 (1.8-7.7); NEUTROPHILS % (AUTO) 62.8 % (42-75); PLATELET COUNT 154 X10'3 (140-440); RED BLOOD COUNT 3.23 X10'6 (4.70-6.10); RED CELL DISTRIBUTION WIDTH 16.7 % (11.5-14.5); WHITE BLOOD COUNT 6.9 X10'3 (4.5-11.0)
--- NOTE | 2022-01-14 06:37 | NUR ---
Problems reprioritized. Patient report given, questions answered & plan of care reviewed with
[2022-01-14 07:00] VITALS: BP 123/69
--- NOTE | 2022-01-14 07:01 | NUR ---
Patient in room PCU 3026. I have received report from sandy TOMPKINS and had the opportunity to ask questions and assume patient care.
[2022-01-14 07:02] LABS: ALANINE AMINOTRANSFERASE 37 U/L (12-78); ALKALINE PHOSPHATASE 35 IU/L (46-116); ANION GAP 7 (8-16); ASPARTATE AMINO TRANSFERASE 20 U/L (10-37); BILIRUBIN,TOTAL 0.8 MG/DL (0.1-1.0); BLOOD UREA NITROGEN 17 MG/DL (7-18); BUN/CREATININE RATIO 13.4 (5.4-32.0); CALCIUM 8.3 MG/DL (8.5-10.1); CHLORIDE 107 MMOL/L (99-107); CREATININE 1.27 MG/DL (0.60-1.10); GLUCOSE 88 MG/DL (70-104); POTASSIUM 4.4 MMOL/L (3.5-5.1); SODIUM 144 MMOL/L (135-145); TOTAL CARBON DIOXIDE 29.7 MMOL/L (24-32); eGFR 55 ML/MIN
[2022-01-14] MEDS: albuterol 2.5 MG/3 ML nebule NEB SCH ×2 (07:40→11:56)
[2022-01-14] MEDS: budesonide 0.5mg/2ml UD nebule IH SCH (07:41)
[2022-01-14] MEDS: NYSTATIN CREAM - 30GM TUBE TP SCH (08:00)
[2022-01-14] MEDS: K and/or MAG REPLACEMENT MC SCH (08:00)
[2022-01-14] MEDS: docusate sod 100mg capsule PO SCH ×2 (08:00→09:08)
[2022-01-14] MEDS ORDERED: linagliptin 5mg tablet PO SCH (08:00)
[2022-01-14] MEDS: CefTRIAXone/D5W-Rocephin 1gm 50 ML IV SCH (09:03)
[2022-01-14] MEDS: furosemide 40mg/4ml inj IV SCH (09:08)
[2022-01-14] MEDS: polyethylene glycol 3350 17gm powd pack PO SCH (09:08)
[2022-01-14] MEDS: aspirin 81mg tab.chew PO SCH (09:09)
[2022-01-14] MEDS: azithromycin 250mg tablet PO SCH (09:09)
[2022-01-14] MEDS: carVEDilol 3.125mg tablet PO SCH (09:09)
[2022-01-14] MEDS: calcium carbonate/vitamin D3 tablet PO SCH ×2 (09:10→12:56)
[2022-01-14] MEDS: amiodarone 200mg tablet PO SCH (09:10)
[2022-01-14] MEDS: spironolactone 25 MG tablet PO SCH (09:10)
[2022-01-14] MEDS: potassium Cl 20 mEq SR tablet PO SCH (09:11)
[2022-01-14] MEDS: apixaban 5mg tablet PO SCH (09:11)
[2022-01-14 11:23] VITALS: BP 105/55
[2022-01-14] MEDS ORDERED: ZAR2.5T PO (13:13)
[2022-01-14] MEDS ORDERED: ESCI5TAB PO (13:13)
[2022-01-14] MEDS ORDERED: LORA-268 PO ×2 (13:13→13:17)
--- NOTE | 2022-01-14 16:01 | NUR ---
patient up and about in room. Ambulated with PT see note. Seen by Dr Barr is for discharge. All DC instructions given to patient. patient DC home via private car with friend in stable condition.
== END 2022-01-14 15:08 | disposition home health service (06) | DRG 291 ==
LOC: ER 05:33 → ED HOLD 10:33 → PCU 3S 14:16
PROVIDERS: ADMIT Family Medicine; ATTEND Family Medicine
DX: I13.0 Hypertensive heart and chronic kidney disease with heart failure and stage 1 through stage 4 chronic kidney disease, or unspecified chronic kidney disease (principal); I50.23 Acute on chronic systolic (congestive) heart failure; J96.01 Acute respiratory failure with hypoxia; J44.0 Chronic obstructive pulmonary disease with (acute) lower respiratory infection; N17.9 Acute kidney failure, unspecified; Z20.822 Contact with and (suspected) exposure to COVID-19; K21.9 Gastro-esophageal reflux disease without esophagitis; N18.9 Chronic kidney disease, unspecified; E78.00 Pure hypercholesterolemia, unspecified; I25.10 Atherosclerotic heart disease of native coronary artery without angina pectoris; E83.51 Hypocalcemia; R62.7 Adult failure to thrive; N48.1 Balanitis; I08.0 Rheumatic disorders of both mitral and aortic valves; I48.91 Unspecified atrial fibrillation; N40.0 Benign prostatic hyperplasia without lower urinary tract symptoms; Z80.0 Family history of malignant neoplasm of digestive organs; I25.2 Old myocardial infarction; Z95.0 Presence of cardiac pacemaker; Z79.01 Long term (current) use of anticoagulants; Z88.8 Allergy status to other drugs, medicaments and biological substances; Z98.61 Coronary angioplasty status; Z82.3 Family history of stroke; Z79.899 Other long term (current) drug therapy; Z68.30 Body mass index [BMI] 30.0-30.9, adult
CPT/HCPCS: 36415; 71045; 80053; 80061; 83605; 83735; 83880; 84132; 84145; 84443; 84484; 85025; 87040; 87081; 87502; 87503; 87635; 93005; 93306; 94640; 94760; 96365; 96375; 97110; 97116; 97162; 97530; 99285; C9803; G0378; J0456; J0696; J1940; J7030

== ENCOUNTER 2022-01-15 06:05 | Emergency (ER) | payer OTHER, MEDICAID ==
[~2022-01-15] VITALS: Ht 177.8 cm; Wt 94.5 kg
[~2022-01-15 06:05] MED LIST changes: +ACET-75 PO; +ALBU8.5H17 IH; +DOCU-148 PO; +ESCI5TAB PO; +HEMP OIL BC; +LORA-268 PO; -MYC15CR TP; +NYST15CR36 TP; +POLY119P2 PO; +ZAR2.5T PO
[2022-01-15 06:48] LABS: BASOPHILS # (AUTO) 0.1 X10'3 (0-0.2); BASOPHILS % (AUTO) 1.1 % (0-1); EOSINOPHILS # (AUTO) 0.3 X10'3 (0-0.9); EOSINOPHILS % (AUTO) 4.6 % (0-6); HEMATOCRIT 30.4 % (42.0-52.0); HEMOGLOBIN 10.3 g/dl (14.0-17.9); LYMPHOCYTES # (AUTO) 1.5 X10'3 (1.1-4.8); LYMPHOCYTES % (AUTO) 22.2 % (21-51); MEAN CORPUSCULAR HEMOGLOBIN 30.6 PG (27.0-31.0); MEAN CORPUSCULAR HGB CONC 34.1 g/dL (33.0-36.5); MEAN CORPUSCULAR VOLUME 89.7 FL (78-98); MEAN PLATELET VOLUME 7.3 FL (7.4-10.4); MONOCYTES # (AUTO) 0.8 X10'3 (0-0.9); MONOCYTES % (AUTO) 10.9 % (2-12); NEUTROPHILS # (AUTO) 4.3 X10'3 (1.8-7.7); NEUTROPHILS % (AUTO) 61.2 % (42-75); PLATELET COUNT 176 X10'3 (140-440); RED BLOOD COUNT 3.38 X10'6 (4.70-6.10); RED CELL DISTRIBUTION WIDTH 16.5 % (11.5-14.5); WHITE BLOOD COUNT 6.9 X10'3 (4.5-11.0)
[2022-01-15 07:06] LABS: ALANINE AMINOTRANSFERASE 35 U/L (12-78); ALBUMIN 3.3 G/DL (3.4-5.0); ALKALINE PHOSPHATASE 36 IU/L (46-116); ANION GAP 10 (8-16); ASPARTATE AMINO TRANSFERASE 23 U/L (10-37); BILIRUBIN,TOTAL 0.7 MG/DL (0.1-1.0); BLOOD UREA NITROGEN 24 MG/DL (7-18); BUN/CREATININE RATIO 17.3 (5.4-32.0); CALCIUM 8.4 MG/DL (8.5-10.1); CHLORIDE 106 MMOL/L (99-107); CREATININE 1.39 MG/DL (0.60-1.10); GLUCOSE 90 MG/DL (70-104); POTASSIUM 4.5 MMOL/L (3.5-5.1); SODIUM 143 MMOL/L (135-145); TOTAL CARBON DIOXIDE 26.6 MMOL/L (24-32); TOTAL PROTEIN 6.5 G/DL (6.4-8.2); eGFR 49 ML/MIN
--- NOTE | 2022-01-15 08:16 | NUR ---
Call to mitch Ruggiero [phone] for ride home.
[2022-01-15 08:46] VITALS: BP 125/80
== END 2022-01-15 08:58 | disposition home or self-care (01) ==
LOC: ER 06:06
DX: R06.02 Shortness of breath (principal); R42 Dizziness and giddiness; I48.91 Unspecified atrial fibrillation; I25.10 Atherosclerotic heart disease of native coronary artery without angina pectoris; I11.0 Hypertensive heart disease with heart failure; I50.9 Heart failure, unspecified; E78.00 Pure hypercholesterolemia, unspecified; I25.2 Old myocardial infarction; J44.9 Chronic obstructive pulmonary disease, unspecified; K21.9 Gastro-esophageal reflux disease without esophagitis; N40.0 Benign prostatic hyperplasia without lower urinary tract symptoms; Z87.01 Personal history of pneumonia (recurrent); Z95.5 Presence of coronary angioplasty implant and graft; Z95.0 Presence of cardiac pacemaker; Z79.899 Other long term (current) drug therapy; Z79.82 Long term (current) use of aspirin; Z88.8 Allergy status to other drugs, medicaments and biological substances; Z88.1 Allergy status to other antibiotic agents
CPT/HCPCS: 36415; 71045; 80053; 83880; 84484; 85025; 93005; 99285

== ENCOUNTER 2022-02-01 07:40 | Emergency (ER) | payer OTHER, MEDICAID ==
[~2022-02-01] VITALS: Ht 177.8 cm; Wt 85.0 kg
[2022-02-01 10:16] LABS: BASOPHILS # (AUTO) 0.1 X10'3 (0-0.2); BASOPHILS % (AUTO) 0.8 % (0-1); EOSINOPHILS # (AUTO) 0.1 X10'3 (0-0.9); EOSINOPHILS % (AUTO) 1.6 % (0-6); HEMATOCRIT 37.5 % (42.0-52.0); HEMOGLOBIN 12.8 g/dl (14.0-17.9); LYMPHOCYTES # (AUTO) 1.7 X10'3 (1.1-4.8); LYMPHOCYTES % (AUTO) 18.5 % (21-51); MEAN CORPUSCULAR HEMOGLOBIN 30.5 PG (27.0-31.0); MEAN CORPUSCULAR HGB CONC 34.2 g/dL (33.0-36.5); MEAN CORPUSCULAR VOLUME 89.1 FL (78-98); MEAN PLATELET VOLUME 6.7 FL (7.4-10.4); MONOCYTES # (AUTO) 0.7 X10'3 (0-0.9); MONOCYTES % (AUTO) 7.4 % (2-12); NEUTROPHILS # (AUTO) 6.7 X10'3 (1.8-7.7); NEUTROPHILS % (AUTO) 71.7 % (42-75); PLATELET COUNT 238 X10'3 (140-440); RED CELL DISTRIBUTION WIDTH 14.7 % (11.5-14.5); WHITE BLOOD COUNT 9.4 X10'3 (4.5-11.0)
[2022-02-01 10:27] LABS: ALANINE AMINOTRANSFERASE 46 U/L (12-78); ALBUMIN 3.5 G/DL (3.4-5.0); ALKALINE PHOSPHATASE 41 IU/L (46-116); ANION GAP 11 (8-16); ASPARTATE AMINO TRANSFERASE 32 U/L (10-37); BILIRUBIN,TOTAL 0.9 MG/DL (0.1-1.0); BLOOD UREA NITROGEN 21 MG/DL (7-18); BUN/CREATININE RATIO 16.4 (5.4-32.0); CALCIUM 8.4 MG/DL (8.5-10.1); CHLORIDE 98 MMOL/L (99-107); CREATININE 1.28 MG/DL (0.60-1.10); GLUCOSE 95 MG/DL (70-104); POTASSIUM 3.9 MMOL/L (3.5-5.1); SODIUM 133 MMOL/L (135-145); TOTAL CARBON DIOXIDE 24.4 MMOL/L (24-32); eGFR 54 ML/MIN
[2022-02-01 10:42] LABS: D-DIMER 0.39 MG/L FEU (0-0.50)
[2022-02-01 11:44] LABS: CLARITY,URINE SLIGHTLY CLOUDY (Clear); COLOR,URINE YELLOW (Yellow); GLUCOSE, URINE NEGATIVE (Neg); KETONES,URINE NEGATIVE (Neg); LEUKOCYTE ESTERASE ,URINE NEGATIVE (Neg); NITRITES, URINE NEGATIVE (Neg); OCCULT BLOOD,URINE NEGATIVE (Neg); PROTEIN,URINE NEGATIVE (Neg); UROBILINOGEN,URINE 0.2 E.U/dL (0.2-1.0)
[2022-02-01 11:47] LABS: UA COLLECTION TYPE CLN CATCH MIDSTREAM
[2022-02-01 11:59] LABS: SQUAMOUS EPITHELIAL CELL,UR FEW /LPF (FEW)
[2022-02-01 12:00] LABS: BACTERIA,URINE FEW /HPF (Neg); RBC,URINE 0-2 /HPF (0-2); WBC,URINE 0-4 /HPF (0-4)
--- NOTE | 2022-02-01 12:11 | NUR ---
Pending taxi back home, cleared for dishcarge
[2022-02-01 12:30] VITALS: BP 119/79
== END 2022-02-01 12:30 | disposition home or self-care (01) ==
LOC: ER 07:40
DX: R06.02 Shortness of breath (principal); R53.1 Weakness; E86.0 Dehydration; I11.9 Hypertensive heart disease without heart failure; J44.9 Chronic obstructive pulmonary disease, unspecified; Z88.8 Allergy status to other drugs, medicaments and biological substances; Z88.1 Allergy status to other antibiotic agents; Z79.899 Other long term (current) drug therapy; Z79.1 Long term (current) use of non-steroidal anti-inflammatories (NSAID); Z79.82 Long term (current) use of aspirin
CPT/HCPCS: 36415; 80053; 81001; 83880; 84484; 85025; 85379; 93005; 99284

== ENCOUNTER 2022-05-08 06:09 | Emergency (ER) | payer OTHER, MEDICAID ==
[~2022-05-08] VITALS: Ht 154.9 cm; Wt 90.0 kg
[~2022-05-08 06:09] MED LIST changes: -ESCI5TAB PO
[2022-05-08] MEDS ORDERED: furosemide 10 MG/1 ML 10ml inj IV ONE (06:45)
[2022-05-08 07:08] LABS: BASOPHILS # (AUTO) 0.1 X10'3 (0-0.2); BASOPHILS % (AUTO) 0.9 % (0-1); EOSINOPHILS % (AUTO) 0.5 % (0-6); HEMOGLOBIN 9.3 g/dl (14.0-17.9); LYMPHOCYTES # (AUTO) 1.2 X10'3 (1.1-4.8); LYMPHOCYTES % (AUTO) 14.5 % (21-51); MEAN CORPUSCULAR HEMOGLOBIN 26.3 PG (27.0-31.0); MEAN CORPUSCULAR HGB CONC 32.1 g/dL (33.0-36.5); MEAN PLATELET VOLUME 7.4 FL (7.4-10.4); MONOCYTES # (AUTO) 0.9 X10'3 (0-0.9); MONOCYTES % (AUTO) 11.7 % (2-12); NEUTROPHILS # (AUTO) 5.9 X10'3 (1.8-7.7); NEUTROPHILS % (AUTO) 72.4 % (42-75); PLATELET COUNT 236 X10'3 (140-440); RED BLOOD COUNT 3.54 X10'6 (4.70-6.10); RED CELL DISTRIBUTION WIDTH 15.1 % (11.5-14.5); WHITE BLOOD COUNT 8.1 X10'3 (4.5-11.0)
[2022-05-08 07:14] LABS: ALANINE AMINOTRANSFERASE 46 U/L (12-78); ALBUMIN 3.5 G/DL (3.4-5.0); ALBUMIN/GLOBULIN RATIO 1.3 (1.1-1.5); ALKALINE PHOSPHATASE 42 IU/L (46-116); ANION GAP 8 (8-16); ASPARTATE AMINO TRANSFERASE 35 U/L (10-37); BILIRUBIN,TOTAL 1.2 MG/DL (0.1-1.0); BLOOD UREA NITROGEN 13 MG/DL (7-18); BUN/CREATININE RATIO 10.1 (5.4-32.0); CALCIUM 8.5 MG/DL (8.5-10.1); CHLORIDE 95 MMOL/L (99-107); CREATININE 1.29 MG/DL (0.60-1.10); GLUCOSE 99 MG/DL (70-104); POTASSIUM 3.9 MMOL/L (3.5-5.1); SODIUM 129 MMOL/L (135-145); TOTAL CARBON DIOXIDE 26.1 MMOL/L (24-32); TOTAL PROTEIN 6.2 G/DL (6.4-8.2); eGFR 53 ML/MIN
[2022-05-08 07:21] LABS: MAGNESIUM 2.2 MG/DL (1.5-2.4)
[2022-05-08] MEDS ORDERED: furosemide 20 MG/2 ML vial IV ONE (09:35)
[2022-05-08 10:58] VITALS: BP 112/65
[2022-05-10] MEDS ORDERED: SERT25TA PO (04:14)
== END 2022-05-08 11:00 | disposition home or self-care (01) ==
LOC: ER 06:10
DX: I11.0 Hypertensive heart disease with heart failure (principal); D53.9 Nutritional anemia, unspecified; E78.00 Pure hypercholesterolemia, unspecified; J44.9 Chronic obstructive pulmonary disease, unspecified; K21.9 Gastro-esophageal reflux disease without esophagitis; Z79.899 Other long term (current) drug therapy; Z88.8 Allergy status to other drugs, medicaments and biological substances; Z88.1 Allergy status to other antibiotic agents; Z88.6 Allergy status to analgesic agent
CPT/HCPCS: 36415; 71045; 80053; 83735; 83880; 84484; 85025; 93005; 96374; 99285; J1940

== ENCOUNTER 2022-10-31 17:38 | Outpatient (CLI) | payer MEDICARE, MEDICAID ==
[~2022-10-31 17:38] MED LIST changes: -ACET-75 PO; +ASPI-1071 PO; -ASPI-1265 PO; +DOXY100T67 PO; -HEMP OIL BC; -LORA-268 PO; +POTA-188 PO; -POTA-207 PO; +PRED10TA23 PO; +SERT25TA PO; -ZAR2.5T PO
[2022-10-31 18:28] LABS: BASOPHILS # (AUTO) 0.1 X10'3 (0-0.2); EOSINOPHILS # (AUTO) 0.4 X10'3 (0-0.9); HEMATOCRIT 29.8 % (42.0-52.0); HEMOGLOBIN 9.7 g/dl (14.0-17.9); LYMPHOCYTES # (AUTO) 1.2 X10'3 (1.1-4.8); LYMPHOCYTES % (AUTO) 13.9 % (21-51); MEAN CORPUSCULAR HEMOGLOBIN 26.6 PG (27.0-31.0); MEAN CORPUSCULAR HGB CONC 32.4 g/dL (33.0-36.5); MEAN CORPUSCULAR VOLUME 82.1 FL (78-98); MEAN PLATELET VOLUME 7.1 FL (7.4-10.4); MONOCYTES # (AUTO) 0.9 X10'3 (0-0.9); MONOCYTES % (AUTO) 10.6 % (2-12); NEUTROPHILS # (AUTO) 5.8 X10'3 (1.8-7.7); NEUTROPHILS % (AUTO) 69.5 % (42-75); PLATELET COUNT 191 X10'3 (140-440); RED BLOOD COUNT 3.63 X10'6 (4.70-6.10); RED CELL DISTRIBUTION WIDTH 15.8 % (11.5-14.5); WHITE BLOOD COUNT 8.4 X10'3 (4.5-11.0)
[2022-10-31 18:39] LABS: ALBUMIN 3.1 G/DL (3.4-5.0); ANION GAP 5 (8-16); BLOOD UREA NITROGEN 13 MG/DL (7-18); BUN/CREATININE RATIO 12.5 (10.0-20.0); CALCIUM 8.3 MG/DL (8.5-10.1); CHLORIDE 106 MMOL/L (99-107); CREATININE 1.04 MG/DL (0.60-1.10); GLUCOSE 101 MG/DL (70-104); POTASSIUM 4.6 MMOL/L (3.5-5.1); SODIUM 142 MMOL/L (135-145); TOTAL CARBON DIOXIDE 30.8 MMOL/L (24-32); eGFR 69 ML/MIN
== END 2022-10-31 23:59 | disposition home or self-care (01) ==
LOC: LAB SPEC 17:38
PROVIDERS: ATTEND Family Medicine
DX: N17.9 Acute kidney failure, unspecified (principal); J18.1 Lobar pneumonia, unspecified organism
CPT/HCPCS: 36415; 80048; 84145; 85025